=== PATIENT | female | born 1940 | race Caucasian/White ===

== ENCOUNTER 2019-03-30 12:41 | Day surgery (SDC) | payer MEDICARE, MEDICAID, SELFPAY ==
[2019-03-29 17:55] VITALS: BMI 45.7
--- NOTE | 2019-03-30 12:31 | PM.HPUD ---
H&P update H&P Update: DATE OF SURGERY/PROCEDURE: 03/30/19 DATE H&P PERFORMED: 03/29/19 H&P UPDATE INFORMATION: H&P completed within last 30 days and No changes to prior documentation PREOP DIAGNOSIS: Right gluteal abscess PLANNED PROCEDURE: Operation Date: 03/30/19 15:25 Proposed Procedures p Exam Under Anesthesia(Not Applicable) - Hiro Mistry MD s Incision And Drainage right gluteal abcess [id number] k61.1(Not Applicable) - Hiro Mistry MD Full H&P Perinent History: Medical/Surgical History: Medical History (Updated 03/29/19 @ 16:54 by Hiro Mistry MD) CHF (congestive heart failure) (Acute) COPD (chronic obstructive pulmonary disease) (Acute) H/O drainage of abscess (Acute) Dr. Yip in 12/2019 is 134 on Hypertension (Acute) Perirectal abscess (Acute) Rectovaginal fistula (Acute) Family History: Family History (Updated 03/29/19 @ 16:22 by Ping Styles LPN) Unknown Cancer siblings with colon cancer, lung cancer, and melanoma Other Diabetes Denies family history of Anesthesia complication Bleeding disorder Social History: Social History Smoking and tobacco status: never smoked Alcohol intake: never Household members: family Current occupational status: retired
[2019-03-30 13:22] VITALS: BP 105/73; PULSE 92; RESP 18; TEMP 37.3; O2SAT 97
[2019-03-30] MEDS: sodium chloride 0.9% 1,000 ML 30 ML IV (13:45)
--- NOTE | 2019-03-30 13:49 | ANES.PREANES ---
Pre-Anesthetic Assessment Pre-Anesthetic Assessment: Height/Weight: Height 1.57 m Weight 113.398 kg Temp Pulse Resp BP Pulse Ox 99.1 F 92 18 105/73 97 03/30/19 13:22 03/30/19 13:22 03/30/19 13:22 03/30/19 13:22 03/30/19 13:22 Proposed Procedure: Operation Date: 03/30/19 15:25 Proposed Procedures p Exam Under Anesthesia(Not Applicable) - Hiro Mistry MD s Incision And Drainage right gluteal abcess [id number] k61.1(Not Applicable) - Hiro Mistry MD Was Beta Amelia taken within 24 hours: N/A Last intake: Intake Last Liquid Date 03/29/19 Last Liquid Time 21:00 Last Solid Date 03/29/19 Last Solid Time 21:00 Exam: Pre-Anes Outpt Exam: alert, oriented x 3, clear to auscultation bilaterally and regular rate & rhythm Additional Exam Findings (including area of procedure): Diminished breath sounds Airway: Submandibular: WNL Cervical ROM: WNL MP: 4 Additional comments: edentulous Pulmonary: Pulmonary: COPD, Sleep apnea (CPAP/Trilogy) and SOB Comments: ON oxygen 4L NC, hx acute respiratory resp failure CV/HEM: CV/HEM: CHF : : None reported Hepatic: Hepatic: None reported GI: GI: None reported Metabolic: Metabolic: Morbid obesity and Thyroid Musc/skel: Musc/skel: Lower Back Pain Neuropsych: Neuropsych: CVA (years ago) Anesthetic Plan: ASA status: IV Anesthesia: General Risk of > 500 ml blood loss (7ml/kg in children): No Meds/Allergies Current Medications: Current Medications Generic Name Dose Route Start Last Admin Trade Name Freq PRN Reason Stop Dose Admin Sodium Chloride 1,000 mls @ 30 ml s/hr 03/30/19 12:45 03/30/19 13:45 Sodium Chloride 0.9% IV 03/31/19 12:44 30 mls/hr .Q24H MARIO Administration PFSH Anesthesia PFSH: Social History Smoking and tobacco status: never smoked Alcohol intake: never Household members: family Current occupational status: retired Data Anesthesia Cardiac Studies: No Data to Display
[2019-03-30] MEDS: clindamycin 600 MG/50 ML PREMIX 100 MG IV (14:12)
[2019-03-30] MEDS: metroNIDAZOLE IV 500 MG/100 ML PREMIX 100 MG IV (14:12)
[2019-03-30] MEDS: lidocaine 1% INJ 20 mL SUBCUT (14:30)
[2019-03-30 14:47] VITALS: BP 109/82; PULSE 87; RESP 18; TEMP 36.9; O2SAT 98
--- NOTE | 2019-03-30 15:09 | P.OP_ITS ---
Operative Report Post-Operative Note: Date of procedure: 03/30/19 Preop Diagnosis: Rectovaginal fistula, right perirectal abscess Post-op Findings: 4 x 4 centimeter right perirectal abscess Procedure Done: Incision and drainage of right perirectal abscess Pathology: none sent Surgeon: Hiro Mistry Anesthesia: MAC Estimated blood loss (mL): 10 Condition: stable Disposition: PACU Operative Report: Procedure: The patient was taken to the operating room and placed in the right lateral position under MAC after IV antibiotic had been administered. 1% lidocaine with 0.5% Marcaine was infiltrated around the abscess. Using 11 blade 3 cm incision was made starting at the existing opening of the abscess cavity. Loculations were taken down bluntly, wound was irrigated saline and 3/4 inch Gridley drain was sutured in place using 3-0 Prolene suture. Dressings were applied and the patient was transferred to recovery room in stable condition. Coding Level of Care Code Acute Cnc Machine Programmer for Hung Macias
--- NOTE | 2019-03-30 16:42 | PC.SOCIAL ---
SS was called to patient's room, she stated she needs more help at home. She lives at home with her son and daughter. She has in-home services with [facility] 7 days a week, nursing 1 day a week, and respite 5 days a week. She has a walker and is on 4L of O2 at home. Her O2 is provided by HOME. She see Dr. Parks and her family takes her to all appointments. She was order home health, her choice was [facility] who already provides her in-home services. [facility] faxed order to [facility].
--- NOTE | 2019-03-30 18:00 | ANE.PACU ---
 Inpatient post-anesthesia follow up: Airway intact: Yes Vital signs: Temperature 98.5 F Pulse Rate [Left R adial] 87 Respiratory Rate 18 Blood Pressure [Ri ght Arm] 109/82 Pulse Oximetry 98 Oxygen Delivery Me thod Nasal Cannula Oxygen Flow Rate 5 Fraction of Inspir ed Oxygen Hydration adequate: Yes Nausea and vomiting: No Mental status: Baseline
--- NOTE | 2019-03-31 12:09 | PC.SOCIAL ---
Received a call from Kasia with [facility] who states they received the HH order. I will fax additional information to Kasia. She states she will check staffing and contact the PCP to see if they will follow for HH. If everything is good, she will not contact us again, but if there are issues, she will let us know.
== END 2019-03-30 16:33 | disposition home or self-care (01) ==
PROVIDERS: Family Provider Electrodiagnostic Medicine; PCP Electrodiagnostic Medicine; Visit Provider Surgery
PROC: (CPT 46040; principal; 2019-03-30 14:20)
PROC: (CPT 46040; 2019-03-30 14:20)
DX: K61.1 Rectal abscess (principal); J44.9 Chronic obstructive pulmonary disease, unspecified; G47.30 Sleep apnea, unspecified; Z99.81 Dependence on supplemental oxygen; I11.0 Hypertensive heart disease with heart failure; I50.9 Heart failure, unspecified; E66.01 Morbid (severe) obesity due to excess calories; Z68.42 Body mass index [BMI] 45.0-49.9, adult; Z86.73 Personal history of transient ischemic attack (TIA), and cerebral infarction without residual deficits; Z83.3 Family history of diabetes mellitus
CPT/HCPCS: 46040; 96365; J2001; J3490; J7030; S0030

== ENCOUNTER 2019-05-10 14:39 | Emergency (ER) | payer MEDICARE, MEDICAID, SELFPAY ==
[2019-05-10 14:47] VITALS: BP 107/54; PULSE 78; RESP 18; O2SAT 98; BMI 44.8
--- NOTE | 2019-05-10 15:31 | ED_ITS ---
Entered by Chelly Boyd, acting as scribe for Sammy Suero DO HPI - Skin/Abscess/Foreign Bdy General: Chief complaint: Skin/Abscess/Foreign Body Stated complaint: BUTTOCK WOUND Time Seen by Provider: 05/10/19 15:23 Source: patient, EMS and RN notes reviewed Mode of arrival: EMS Limitations: no limitations History of Present Illness: HPI narrative: 78 yo female presents to ED with complaints of an abscess on or near rectum. Dr Mistry performed drained the area 6 weeks ago. MD complaint: abscess/boil Onset (ago): week(s) (2) Tetanus up to date: yes Location: buttocks Severity: severe Quality: aching, sharp and constant Pain Consistency: constant Relieving factors: rest (on side) Exacerbating factors: other (sitting) Context: none Associated symptoms: Reports no associated symptoms Treatments prior to arrival: other (surgically drained 6 weeks) Review of Systems General: Reports: 10 or more systems reviewed and unremarkable except in HPI and below PFSH ED PFSH: Medical History CHF (congestive heart failure) COPD (chronic obstructive pulmonary disease) H/O drainage of abscess Dr. Yip in 12/2019 is 134 on 03/30/2019: Dr. Mistry right perirectal Hypertension Perirectal abscess Rectovaginal fistula Surgical History H/O hysterectomy with oophorectomy H/O wrist surgery History of bladder surgery bladder lift Family History Unknown Cancer siblings with colon cancer, lung cancer, and melanoma Other Diabetes Denies family history of Anesthesia complication Bleeding disorder Social History Smoking and tobacco status: former smoker Alcohol intake: never Household members: family Current occupational status: retired Physical Exam Const: COMMON NORMALS: no apparent distress, average body habitus, oriented x3, no limitations, healthy appearing, alert and well nourished HENMT: COMMON NORMALS: normocephalic, head/scalp atraumatic, hearing grossly normal bilaterally, external ears normal, EAC's normal, TM's normal bilaterally, external nose normal, nasal mucous membranes and turbinates normal, moist oral mucous membranes, oropharynx normal, dentition normal and gingiva normal HEAD & SCALP: normocephalic and atraumatic NOSE: external nose normal and nasal mucous membranes and turbinates normal EXTERNAL EAR: Yes external ears normal EXTERNAL AUDITORY CANAL: EAC's normal TYMPANIC MEMBRANE: TM's normal bilaterally Eye: COMMON NORMALS: PERRL, EOMs intact bilaterally, conjunctivae normal, no scleral icterus, no papilledema, normal visual louie by confrontation and fundi normal bilaterally CONJUNCTIVA: Yes conjunctivae normal PUPIL: Yes PERRL DIRECT OPHTHALMOSCOPY: Yes no papilledema and Yes fundi normal bilaterally Neck/C-Spine: COMMON NORMALS: full ROM, no lymphadenopathy, supple, no meningeal signs, no JVD, thyroid normal and no carotid bruits THYROID: thyroid normal Chest: COMMONS NORMALS: inspection of chest normal and palpation of chest normal Resp: COMMON NORMALS: normal respiratory effort, no retractions, no use of accessory muscles, clear to auscultation bilaterally and percussion normal AUSCULTATION: clear to auscultation bilaterally PERCUSSION: percussion normal Cardio: COMMON NORMALS: no JVD, regular rate, regular rhythm, S1 normal heart sound, S2 normal heart sound, no gallops, no clicks, no murmurs, no rub and peripheral pulses 2+ throughout RATE: regular rate RHYTHM: regular rhythm HEART SOUNDS: S1 normal and S2 normal PERIPHERAL PULSES: pulses 2+ throughout GI: COMMON NORMALS: normal to inspection, nondistended, normoactive bowel sounds, soft to palpation, non-tender, no hepatosplenomegaly, no masses and no bruits PALPATION: Yes soft and Yes no hepatosplenomegaly : COMMON NORMALS: Yes no CVA tenderness and Yes external appearance normal BLADDER/KIDNEY EXAM: Yes no CVA tenderness Back/Pelvis: COMMON NORMALS: no CVA tenderness, thoracic and lumbar spine normal to inspection, no thoracic nor lumbar tenderness, thoraco-lumbar ROM normal and straight leg raise negative bilaterally Extremity: COMMON NORMALS: normal to inspection, full ROM, normal capillary refill, no joint enlargement, no clubbing, cyanosis or edema, no calf tenderness and no pedal edema Neuro: COMMON NORMALS: oriented x3 SENSORIUM/ORIENTATION: Yes alert MENINGEAL SIGNS: Yes no meningeal signs Skin: COMMON NORMALS: skin turgor normal, no jaundice, no petechiae and no mottling GENERAL SKIN EXAM: turgor normal Course Consultations: Consultation #1: I spoke with Dr Mistry who recommended packing, sitz baths, and follow up at the wound care clinic Vital Signs: Vital signs: Vital Signs Pulse Rate 78 05/10/19 14:47 Respiratory Rate 18 05/10/19 14:47 Blood Pressure 107/54 05/10/19 14:47 Pulse Oximetry 98 05/10/19 14:47 Discharge Plan Discharge Patient Disposition: Home, Self-Care Clinical Impression: Rectovaginal fistula Abscess of skin or subcutaneous tissue Qualifiers: Site of cutaneous abscess: buttock Qualified Code(s): L02.31 - Cutaneous abscess of buttock Condition: Stable Prescriptions: No Action triamcinolone acetonide 0.1 % cream 1 applic TOPICAL BID RF: 0 levothyroxine 175 mcg capsule 175 mcg PO DAILY RF: 0 albuterol sulfate [ProAir HFA] 90 mcg/actuation HFA aerosol inhaler 2 puff INHALATION Q6H PRN (Reason: Allergy Symptoms) RF: 0 ropinirole [Requip XL] 2 mg tablet extended release 24 hr 4 mg PO DAILY RF: 0 sertraline [Zoloft] 50 mg tablet 75 mg PO Q24H RF: 0 alprazolam 0.5 mg tablet 0.5 mg PO PRN PRN (Reason: Anxiety) RF: 0 potassium chloride 20 mEq tablet,ER particles/crystals 20 meq PO DAILY RF: 0 [place] 5-325 mg tablet 1 tab PO Q6H PRN (Reason: pain) Qty: 30 RF: 0 Discharge Orders: Discharge Order (Routine); Ordered 05/10/19 Ordered By: Sammy Suero Referrals: Jerardo Parks DO [Primary Care Provider] - Coding Level of Care Code ED Window Draper for Chg Fwd Exam Comprehensive The documentation recorded by the Oliver agee Valerie R, accurately reflects the service I personally performed and the decisions made by Pio villegas Donald P, DO May 10, 2019 14:39
[2019-05-10 16:16] VITALS: BP 109/57; PULSE 74; RESP 20; O2SAT 97
== END 2019-05-10 16:25 | disposition home or self-care (01) ==
PROVIDERS: Emergency Provider Family Medicine; Family Provider Electrodiagnostic Medicine; PCP Electrodiagnostic Medicine
DX: N82.3 Fistula of vagina to large intestine (principal); I11.0 Hypertensive heart disease with heart failure; I50.9 Heart failure, unspecified; J44.9 Chronic obstructive pulmonary disease, unspecified; Z87.891 Personal history of nicotine dependence
CPT/HCPCS: 99281

== ENCOUNTER 2019-07-15 12:37 | Inpatient (IN) | payer MEDICARE, MEDICAID, SELFPAY ==
[2019-07-15] VITALS (13 sets, daily range): BP systolic 118–169; BP diastolic 70–95; PULSE 79–91; RESP 15–22; TEMP 37–37.6; O2SAT 92–98; BMI 45.1
--- NOTE | 2019-07-15 13:33 | W.ED.GENADLT ---
HPI - General Adult General: Chief complaint: General Medical Stated complaint: multiple complaints Time Seen by Provider: 07/15/19 13:05 Source: patient Limitations: no limitations History of Present Illness: HPI narrative: 78-year-old female patient with a history of congestive heart failure, hypertension, COPD, who is on home BiPAP to be used as needed, she says that in the last 3 weeks she has had to use the BiPAP all the time which is not usual for her. She denies a fever, she complains of generalized weakness. She also has a rash that is itchy and sometimes painful under her skin folds especially of the breasts and groin and between her buttocks cheeks. Associated symptoms: Reports chest pain, dyspnea and rash; Deny nausea, palpitations or vomiting Review of Systems General: Reports: 10 or more systems reviewed and unremarkable except in HPI and below Const: Denies: fever, chills or body aches Eyes: Denies: change in vision or blurry vision ENMT: Denies: throat pain, enlarged tonsils, painful swallowing, hoarseness, mouth pain or swelling of lips/tongue Card: Reports: chest pain; Denies: palpitations, irregular heart rhythm, edema or swelling of feet/ankles Resp: Reports: shortness of breath GI: Denies: abdominal pain, nausea or vomiting : Denies: flank pain, difficulty urinating, painful urination, urinary frequency, urinary urgency or urinary hesitancy Musc: Denies: neck pain, back pain or extremity swelling Skin/Breast: Reports: rash and itching Neuro: Reports: other (generalized weakness) Endo: Denies: excessive urination, excessive thirst or tired all the time [facility] ED PFSH: Medical History (Updated 07/15/19 @ 18:06 by Lurdes Carty MD) Acute on chronic respiratory failure Anxiety and depression CHF (congestive heart failure) chronic diastolic CKD (chronic kidney disease) stage 2, GFR 60-89 ml/min COPD (chronic obstructive pulmonary disease) Trilogy dependent (Ellipta) H/O drainage of abscess Dr. Yip in 12/2019 is 134 on 03/30/2019: Dr. Mistry right perirectal Hypertension Hypothyroidism Morbid obesity Normocytic hypochromic anemia ALONZO (obstructive sleep apnea) Pemphigus vulgaris Perirectal abscess Rectovaginal fistula Restless leg syndrome Surgical History H/O hysterectomy with oophorectomy H/O wrist surgery ORIF History of bladder surgery bladder lift Family History (Updated 07/15/19 @ 17:29 by Lurdes Carty MD) Unknown Cancer siblings with colon cancer, lung cancer, and melanoma Father CAD (coronary artery disease) Mother Diabetes Denies family history of Anesthesia complication Bleeding disorder Social History (Updated 07/15/19 @ 17:30 by Lurdes Carty MD) Smoking and tobacco status: former smoker Quit status (tobacco): has quit using tobacco Year quit tobacco: 50 yrs ago Alcohol intake: never Substance/Drug Use: never Household members: family Current occupational status: retired History of recent travel: No Physical Exam Const: COMMON NORMALS: no apparent distress and average body habitus OTHER: On her home BiPAP machine Resp: COMMON NORMALS: normal respiratory effort, no retractions, no use of accessory muscles and clear to auscultation bilaterally AUSCULTATION: clear to auscultation bilaterally Cardio: COMMON NORMALS: regular rate, regular rhythm, S1 normal heart sound and S2 normal heart sound RATE: regular rate RHYTHM: regular rhythm HEART SOUNDS: S1 normal and S2 normal Extremity: COMMON NORMALS: normal to inspection, no calf tenderness and no pedal edema Skin: RASHES: rashes noted (Multiple maculopapular rashes with yellowish exudates, some blisters, and some plaques also located in the skin folds under both breasts and between both breasts, gluteal fold, inguinal regions. ) Course Consultations: Consultation #1: Dr. Carty, hospitalist. She kindly accepted the patient to her service. Time: 16:27 Vital Signs: Vital signs: Vital Signs Temperature 98.6 F 07/15/19 17:41 Pulse Rate 83 07/15/19 17:41 Respiratory Rate 16 07/15/19 17:41 Blood Pressure 120/70 07/15/19 17:41 Pulse Oximetry 98 07/15/19 17:41 MDM - General Adult MDM Narrative: Medical decision making narrative: 78-year-old female patient who presents to the emergency department with multiple complaints. Evaluation in the emergency department shows CHF exacerbation as well as intertrigo. She is admitted to the hospital for further management and evaluation. Lab Data: Labs: Lab Results 04/07/15/19 07/15/19 Range/Units 14:00 14:00 14:00 WBC 12.0 H (4.0-10.0) 10^3/ uL RBC 3.20 L (4.1-5.3) 10^6/u L Hgb 7.9 L (11.5-15.3) g/dL Hct 27.4 L (37.0-47.0) % MCV 85.6 (81-99) fL MCH 24.7 L (28.0-34.0) pg MCHC 28.8 L (30.0-36.0) g/dL RDW 17.9 H (12.1-15.1) % Plt Count 142 (130-400) 10^3/c mm MPV 11.1 H (7.4-10.4) fL Neut % (Auto) 45.7 % Lymph % (Auto) 16.8 % Hale % (Auto) 27.7 % Eos % (Auto) 2.3 % Baso % (Auto) 0.3 % Neut # (Auto) 5.5 (1.8-7.7) 10^3/u L Lymph # (Auto) 2.0 (0.8-4.8) 10^3/u L Hale # (Auto) 3.3 H (0.2-0.9) 10^3/u L Eos # (Auto) 0.3 (0.0-0.8) 10^3/u L Baso # (Auto) 0.0 (0.0-0.1) 10^3/u L Nucleated RBC % (a uto) 0.8 % Nucleated RBCs # 0.1 /100WBC Sodium 143 (136-145) mmol/L Potassium 3.8 (3.5-5.1) mmol/L Chloride 96 L (98-107) mmol/L Carbon Dioxide 35 H (22-29) mmol/L Anion Gap 15.8 (5-19) BUN 21 (8-23) mg/dL Creatinine 0.8 (0.5-0.9) mg/dL Glucose 117 H (65-115) mg/dL Calculated Osmolal ity 294 (285-295) mOsm/k g Lactate 0.8 (0.5-2.2) mmol/L Calcium 10.6 H (8.5-10.5) mg/dL Total Bilirubin 0.3 (0.15-1.2) mg/dL AST 26 (0-32) U/L ALT 16 (0-33) U/L Alkaline Phosphata se 120 H (35-105) IU/L Troponin T Baselin e (0-10) ng/mL Troponin T 120 Min ruchi (0-10) ng/mL Delta Troponin T (0-10) ABS# NT-Pro-B Natriuret Pep 2650 H (0-450) pg/mL Total Protein 7.5 (6.6-8.7) g/dL Albumin 3.2 L (3.5-5.2) g/dL Globulin 4.3 (1.3-4.6) g/dL 07/15/19 07/15/19 Range/Units 14:00 16:14 WBC (4.0-10.0) 10^3/ uL RBC (4.1-5.3) 10^6/u L Hgb (11.5-15.3) g/dL Hct (37.0-47.0) % MCV (81-99) fL MCH (28.0-34.0) pg MCHC (30.0-36.0) g/dL RDW (12.1-15.1) % Plt Count (130-400) 10^3/c mm MPV (7.4-10.4) fL Neut % (Auto) % Lymph % (Auto) % Hale % (Auto) % Eos % (Auto) % Baso % (Auto) % Neut # (Auto) (1.8-7.7) 10^3/u L Lymph # (Auto) (0.8-4.8) 10^3/u L Hale # (Auto) (0.2-0.9) 10^3/u L Eos # (Auto) (0.0-0.8) 10^3/u L Baso # (Auto) (0.0-0.1) 10^3/u L Nucleated RBC % (a uto) % Nucleated RBCs # /100WBC Sodium (136-145) mmol/L Potassium (3.5-5.1) mmol/L Chloride (98-107) mmol/L Carbon Dioxide (22-29) mmol/L Anion Gap (5-19) BUN (8-23) mg/dL Creatinine (0.5-0.9) mg/dL Glucose (65-115) mg/dL Calculated Osmolal ity (285-295) mOsm/k g Lactate (0.5-2.2) mmol/L Calcium (8.5-10.5) mg/dL Total Bilirubin (0.15-1.2) mg/dL AST (0-32) U/L ALT (0-33) U/L Alkaline Phosphata se (35-105) IU/L Troponin T Baselin e 28 H (0-10) ng/mL Troponin T 120 Min ruchi 28.84 H (0-10) ng/mL Delta Troponin T 0.84 (0-10) ABS# NT-Pro-B Natriuret Pep (0-450) pg/mL Total Protein (6.6-8.7) g/dL Albumin (3.5-5.2) g/dL Globulin (1.3-4.6) g/dL Imaging Data^: CXR: Radiologist's impression: [address] [address] XRay Report Signed Patient: Aurelia Cruz #: [id number] : 1940Acct#:[id number] Age/Sex: 78 / FADM Date: 07/15/19 Loc: [facility]/Bed: Attending Dr: Ordering Provider/Ordering MD: Dave Zimmerman MD, [facility] [place] Date of Service: 07/15/19 Procedure(s): XR chest 1V portable [id number] Accession Number(s): [id number] Report Number: [id number] WS: [id number] CHEST XRAY TECHNIQUE: Portable chest. CLINICAL INFORMATION: SOB COMPARISON: March 15, 2019 FINDINGS: Heart: Marked cardiomegaly with mildly vascular congestion Lungs: Mild pulmonary vascular congestion. No focal pneumonia. Trace pleural fluid. Chronic elevation hemidiaphragm unchanged. Shallow inspiration. Bones: Normal visualized bony structures. XR/XR chest 1V portable [id number] IMPRESSION: 1. Shallow inspiration. 2. Cardiomegaly with mild pulmonary vascular congestion and trace pleural fluid. Recommend correlation CHF. EKG Data^: EKG 1: Attestation: I personally reviewed and interpreted this EKG as follows: EKG interpretation date: 07/15/19 EKG interpretation time: 16:29 Prior EKG tracings: not available for review Interpretation: Normal sinus rhythm. Normal axis. Heart rate [address] changes. Computer generated interpretation: Chest X-Ray 07/15/19 14:15 IMPRESSION: 1. Shallow inspiration. 2. Cardiomegaly with mild pulmonary vascular congestion and trace pleural fluid. Recommend correlation CHF. Discharge Plan Discharge Patient Disposition: Admitted As Inpatient Admit Provider: Lurdes Carty Discharge Date/Time: 07/15/19 17:27 Coding Level of Care Code ED Pile Fabric Knitter for Chg Fwd Exam Detailed
[2019-07-15 14:10] LABS: Basophils % 0.3 %; Eosinophils # 0.3 10^3/uL (0.0-0.8); Eosinophils % 2.3 %; Hematocrit 27.4 % (37.0-47.0); Hemoglobin 7.9 g/dL (11.5-15.3); Lymphocytes % 16.8 %; Mean Corpuscular HGB Conc 28.8 g/dL (30.0-36.0); Mean Corpuscular Hemoglobin 24.7 pg (28.0-34.0); Mean Corpuscular Volume 85.6 fL (81-99); Mean Platelet Volume 11.1 fL (7.4-10.4); Monocytes # 3.3 10^3/uL (0.2-0.9); Monocytes % 27.7 %; Neutrophils # 5.5 10^3/uL (1.8-7.7); Neutrophils % 45.7 %; Nucleated Red Blood Cells # 0.1 /100WBC; Nucleated Red Blood Cells % 0.8 %; Platelet Count 142 10^3/cmm (130-400); Red Cell Distribution Width 17.9 % (12.1-15.1)
--- NOTE | 2019-07-15 14:15 | XR_ITS ---
WS: [id number] CHEST XRAY TECHNIQUE: Portable chest. CLINICAL INFORMATION: SOB COMPARISON: March 15, 2019 FINDINGS: Heart: Marked cardiomegaly with mildly vascular congestion Lungs: Mild pulmonary vascular congestion. No focal pneumonia. Trace pleural fluid. Chronic elevation hemidiaphragm unchanged. Shallow inspiration. Bones: Normal visualized bony structures. XR/XR chest 1V portable [id number] IMPRESSION: 1. Shallow inspiration. 2. Cardiomegaly with mild pulmonary vascular congestion and trace pleural flui d. Recommend correlation CHF.
[2019-07-15 14:29] LABS: Slide Review Slide Review Perform
[2019-07-15 14:31] LABS: Lactate (Lactic Acid level) 0.8 mmol/L (0.5-2.2)
[2019-07-15 14:40] LABS: Alanine Aminotransferase 16 U/L (0-33); Albumin Level 3.2 g/dL (3.5-5.2); Alkaline Phosphatase 120 IU/L (35-105); Anion Gap 15.8 (5-19); Aspartate Amino Transferase 26 U/L (0-32); Blood Urea Nitrogen 21 mg/dL (8-23); Calcium 10.6 mg/dL (8.5-10.5); Carbon Dioxide 35 mmol/L (22-29); Chloride 96 mmol/L (98-107); Globulin 4.3 g/dL (1.3-4.6); Glucose 117 mg/dL (65-115); NT Pro B Type Natriuretic Pept 2650 pg/mL (0-450); Osmolality Calculated 294 mOsm/kg (285-295); Potassium 3.8 mmol/L (3.5-5.1); Sodium 143 mmol/L (136-145); Total Bilirubin 0.3 mg/dL (0.15-1.2); Total Protein 7.5 g/dL (6.6-8.7)
--- NOTE | 2019-07-15 15:51 | ECG_ITS ---
Measurements Intervals [place] Rate: 80 P: 63 [place]: 160 QRS: 31 QRSD: 104 T: 39 QT: 351 QTc: 405 SINUS RHYTHM LOW QRS VOLTAGE IN PRECORDIAL LEADS [QRS DEFLECTION < 1.0 mV IN CHEST LEADS] Compared to ECG 03/15/2019 14:17:20 Low QRS voltage now present Electronically Signed On 07-16-2019 14:58:49 CDT by Benita Davis M.D. [email or web address]
[2019-07-15] MEDS: FUROsemide 10 mg/mL SDV 10mL 80 MG IVP (15:56)
[2019-07-15 16:11] LABS: Troponin(5th) Baseline 28 ng/mL (0-10)
[2019-07-15 16:39] LABS: Troponin 5 2HR 28.84 ng/mL (0-10); Troponin 5 2HR Delta 0.84 ABS# (0-10)
--- NOTE | 2019-07-15 17:09 | PM.HP ---
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 Patient is well-known to me from previous admission and has presented in the past with similar symptoms often due to acute CHF exacerbation. She was last admitted at our facility in 12/2018. Patient is currently on BiPAP during my assessment in the ER so history taking is a little limited. Collateral information obtained from ER staff, review of medical record, family. Patient states that she has been compliant with trilogy and despite using it has continued to be short of breath. She is not sure if she has had lower extremity swelling but states that her legs do not feel right. She is unable to tell if she has had additional swelling elsewhere including her abdominal area. She is quite concerned about possible perirectal abscess which she has dealt with in the past due to noted drainage and bleeding whenever she awakens in the morning. She did have a right perirectal abscess incised and drained in March by Dr. 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 Unfortunately patient also has a history of pemphigus and intermittently has worsening lesions with blistering, she follows up with a specialist at [facility] and daughter Rafaela whom I spoke to on the phone states that recently patient has had increased redness and blistering which have caused some distress for the patient. Patient's daughter is one of her primary caregivers and patient does have home health services through [facility] home health agency. It seems that she was unable to maintain her saturation using her trilogy likely due to ill fitting mask as the Velcro straps are worn out. She was subsequently switched to BiPAP which she is still on with saturation being maintained in the 98-100% range. She has already received an 80 mg dose of IV Lasix. Work-up includes noted leukocytosis with a white count of 12.0, anemia with a hemoglobin of 7.9, normal renal function, lactic acid of 0.8, BNP of 2650. Chest x-ray is reported as mild vascular pulmonary congestion and cardiomegaly. Patient is being admitted for further IV diuresis and BiPAP support. Review of Systems Const: Reports: change in appetite (decreased appetite) and fatigue; Denies: fever or chills Eyes: Denies: change in vision ENMT: Reports: dry mouth Card: Denies: chest pain, swelling of feet/ankles or lightheadedness Resp: Reports: productive cough (green sputum); Denies: shortness of breath GI: Denies: abdominal pain, nausea, vomiting, vomiting blood or blood in stool : Reports: urinary frequency; Denies: difficulty urinating or painful urination Musc: Denies: back pain Skin/Breast: Denies: rash Neuro: Reports: weakness in extremities; Denies: numbness in extremities Psych: Denies: anxiety Medications/Allergies Home Medications Medication Instructions Recorded Confirmed Last Taken Type albuterol sulfate 90 mcg/actuation 2 puff INHALATION Q6H PRN 03/29/19 07/15/19 03/29/19 18:00 History aerosol inhaler levothyroxine 175 mcg capsule 175 mcg PO DAILY 03/29/19 07/15/19 03/30/19 07:00 History sertraline 50 mg tablet 75 mg PO DAILY tab 03/29/19 07/15/19 03/30/19 07:00 History triamcinolone acetonide 0.1 % 1 applic TOPICAL BID PRN 03/29/19 07/15/19 2 Days Ago History topical cream ~03/28/19 alprazolam 0.5 mg PO TID PRN 03/30/19 07/15/19 03/30/19 07:00 History potassium chloride 20 meq PO BID 03/30/19 07/15/19 03/30/19 07:00 History lactulose 10 gram/15 mL (15 mL) 10 gm PO BID 30 Days #1440 ml 05/17/19 07/15/19 Unknown Rx oral solution [place] 1 tab PO BID 07/15/19 07/15/19 Unknown History acitretin 25 mg PO DAILY 07/15/19 07/15/19 Unknown History bumetanide See Rx Instructions .ROUTE .COMPLEX 07/15/19 07/15/19 Unknown History cyanocobalamin (vitamin B-12) See Rx Instructions .ROUTE .COMPLEX 07/15/19 07/15/19 Unknown History fluticasone propionate [Flonase 1 spray INTRANASAL DAILY 07/15/19 07/15/19 Unknown History Allergy Relief] hydrocodone-acetaminophen [[place]] 1 tab PO Q8H PRN 07/15/19 07/15/19 Unknown History iron 325 mg PO BID 07/15/19 07/15/19 Unknown History methenamine hippurate 1 g PO BID 07/15/19 07/15/19 Unknown History ropinirole 2 - 4 mg PO BEDTIME 07/15/19 07/15/19 Unknown History Allergies Allergy/AdvReac Type Severity Reaction Status Date / Time levofloxacin [From Levaquin] Allergy Severe ALGY-Swell Verified 05/17/19 15:07 Lip/Tongue/Throat Penicillins Allergy Severe ALGY-Swell Verified 05/17/19 15:07 Lip/Tongue/Throat Sulfa (Sulfonamide Allergy Severe ALGY-Swell Verified 05/17/19 15:07 Antibiotics) Lip/Tongue/Throat PFSH Acute PFSH: Medical History (Updated 07/15/19 @ 18:06 by Lurdes Carty MD) Acute on chronic respiratory failure Anxiety and depression CHF (congestive heart failure) chronic diastolic CKD (chronic kidney disease) stage 2, GFR 60-89 ml/min COPD (chronic obstructive pulmonary disease) Trilogy dependent (Ellipta) H/O drainage of abscess Dr. Yip in 12/2019 is 134 on 03/30/2019: Dr. Mistry right perirectal Hypertension Hypothyroidism Morbid obesity Normocytic hypochromic anemia ALONZO (obstructive sleep apnea) Pemphigus vulgaris Perirectal abscess Rectovaginal fistula Restless leg syndrome Surgical History H/O hysterectomy with oophorectomy H/O wrist surgery ORIF History of bladder surgery bladder lift Family History (Updated 07/15/19 @ 17:29 by Lurdes Carty MD) Unknown Cancer siblings with colon cancer, lung cancer, and melanoma Father CAD (coronary artery disease) Mother Diabetes Denies family history of Anesthesia complication Bleeding disorder Social History (Updated 07/15/19 @ 18:16 by Lurdes Carty MD) Smoking and tobacco status: former smoker Quit status (tobacco): has quit using tobacco Year quit tobacco: 50 yrs ago Alcohol intake: never Substance/Drug Use: never Caregiver/support person: Yes (daughter Rafaela) Household members: children Current occupational status: retired History of recent travel: No Vitals/I&O/Wt Last Vital Signs Temp 99.7 F H 07/15/19 13:01 Pulse 79 07/15/19 16:30 Resp 20 H 07/15/19 16:02 BP 136/95 07/15/19 16:02 Pulse Ox 96 07/15/19 16:30 Weight last 48 hrs Weight 112.037 kg Physical Exam Const: COMMON NORMALS: no apparent distress and oriented x3 GENERAL APPEARANCE: cooperative NUTRITIONAL APPEARANCE: obese morbidly obese ORIENTATION/CONSCIOUSNESS: Yes awake HENMT: COMMON NORMALS: normocephalic, head/scalp atraumatic and hearing grossly normal bilaterally HEAD & SCALP: normocephalic and atraumatic MOUTH: moist mucous membranes abnormal Details: parched Eye: COMMON NORMALS: PERRL, EOMs intact bilaterally and conjunctivae normal CONJUNCTIVA: Yes conjunctivae normal PUPIL: Yes PERRL Neck/C-Spine: GENERAL: Yes normal visual inspection and Yes trachea midline OTHER: -short, thick neck Chest: CHEST: Yes rash (skin lesions and crusted erosions on anterior chest, erythematous) Resp: COMMON NORMALS: normal respiratory effort, no retractions and no use of accessory muscles EFFORT & INSPECTION: Yes able to speak in complete sentences, Yes symmetric chest movement and No tachypneic AUSCULTATION: clear to auscultation bilaterally and diminished lung sounds OTHER: -on BiPAP (40%/20/10) -auscultation limited by body habitus Cardio: COMMON NORMALS: regular rate, regular rhythm, S1 normal heart sound, S2 normal heart sound and no murmurs RATE: regular rate RHYTHM: regular rhythm HEART SOUNDS: S1 normal and S2 normal GI: COMMON NORMALS: normal to inspection, nondistended, normoactive bowel sounds, soft to palpation and non-tender INSPECTION: Yes central obesity PALPATION: Yes soft RECTAL EXAM: external hemorrhoid(s) Extremity: COMMON NORMALS: normal to inspection, full ROM and no clubbing, cyanosis or edema GENERAL: Yes edema (1-2 + pitting edema of bilateral LEs) Neuro: COMMON NORMALS: oriented x3, moves all extremities, no focal motor deficits and no sensory deficits noted Psych: COMMON NORMALS: mental status grossly normal, thought process normal, cooperative, affect normal and speech normal SPEECH: Yes normal speech THOUGHT PROCESS: normal thought process Skin: COMMON NORMALS: no jaundice, no petechiae and no mottling NARRATIVE SKIN EXAM: -Extensive blistering and crusted lesions on anterior chest, less extensive erythematous lesions in gluteal cleft and pubic area. GENERAL SKIN EXAM: no rashes or lesions noted Data : 07/15/19 14:00 07/15/19 14:00 A&P Assessment and plan (1) CHF (congestive heart failure): -acute on chronic diastolic CHF exacerbation as evidenced by increased SOB, LE edema, hypoxia even while using Trilogy, BNP elevation (2650) and evidence of fluid overload on imaging -on BiPAP currently, continue this -received 80 mg dose of IV Lasix in ED, is on Bumex at home, will continue diuresis with IV bumex -monitor Is & Os, daily weights -Echo (09/2018): limited study, EF=75%, no RWMA, PSP-36 -monitor renal function and lytes with diuresis -cardiac diet as tolerated -telemetry monitoring -monitor respiratory status -monitor vital signs Status: Acute Qualifiers: Heart failure type: diastolic Heart failure chronicity: acute on chronic Qualified Code(s): I50.33 - Acute on chronic diastolic (congestive) heart failure (2) Acute on chronic respiratory failure: -chronically hypercapnic -hypoxic on her Trilogy, switched to BiPAP -close monitoring of respiratory status -check ABG -likely secondary to acute CHF exacerbation as noted above Status: Acute Qualifiers: Respiratory failure complication: hypoxia and hypercapnia Qualified Code(s): J96.21 - Acute and chronic respiratory failure with hypoxia; J96.22 - Acute and chronic respiratory failure with hypercapnia (3) Normocytic hypochromic anemia: -noted acutely worsening chronic normocytic anemia -baseline Hg is 8-9, current Hg 7.9 Status: Acute (4) Pemphigus vulgaris: -f/u at [facility] (Dr. Chakraborty) Status: Chronic (5) ALONZO (obstructive sleep apnea): -on BiPAP Status: Chronic (6) Candidal intertrigo: -superimposed on pemphigus lesions, particularly worse in inguinal areas and below bilateral breasts -nystatin powder and diflucan due to extent of skin involvement Status: Acute (7) CKD (chronic kidney disease) stage 2, GFR 60-89 ml/min: -has CKD stage 2, baseline Cr wnl -monitor renal function particularly with diuresis Status: Chronic (8) Hypothyroidism: -has hx of hypothyroidism -resume levothyroxine Status: Chronic Qualifiers: Hypothyroidism type: unspecified Qualified Code(s): E03.9 - Hypothyroidism, unspecified (9) Rectovaginal fistula: -has hx of rectovaginal fistula, inoperable per surgery -f/u with Dr. Mistry -has had issues with perirectal abscesses that have required drainage, most recently one on the R drained in 03/2019 -on exam, seems to have sinus tracts; no fluctuance appreciated -keep area clean and dry, resume bowel regimen Status: Chronic (10) Anxiety and depression: -on alprazolam Status: Chronic (11) Restless leg syndrome: -on ropinrole Status: Chronic (12) Morbid obesity: -BMI-45 kg/m2 Status: Chronic Additional A&P Information -OA, DJD, Chronic back pain -fall precautions -up with assist -DVT ppx with SCDs, hold off on AC due to noted anemia and associated bleeding risk -Dispo: return home, has HH services through [facility] -Code status: FULL code -called and spoke to daughter Rafaela Cruz ([phone]) and explained care plan; gave opportunity to ask questions and answered to her satisfaction Attestations Medical Necessity Statement*: Aurelia Cruz's hospital stay will require greater than 2 midnights for management of acute CHF exacerbation including BiPAP, IV diuresis. Time Spent in Patient Care: Greater than 35 minutes (>than 50% of time spent in counselling and/or direct pt care on unit). Coding Level of Care Code Acute Med Care Manager for Chg Fwd Diagnoses CHF (congestive heart failure) I50.33 Heart failure type: diastolic Heart failure chronicity: acute on chronic Acute on chronic respiratory failure J96.21; J96.22 Respiratory failure complication: hypoxia and hypercapnia Normocytic hypochromic anemia D50.9 Pemphigus vulgaris L10.0 ALONZO (obstructive sleep apnea) G47.33 Candidal intertrigo B37.2 CKD (chronic kidney disease) stage 2, GFR 60-89 ml/min N18.2 Hypothyroidism E03.9 Hypothyroidism type: unspecified Rectovaginal fistula N82.3 Anxiety and depression F41.9; F32.9 Restless leg syndrome G25.81 Morbid obesity E66.01
--- NOTE | 2019-07-15 17:51 | ECG_ITS ---
Measurements Intervals [place] Rate: 84 P: 99 MI: 164 QRS: 33 QRSD: 93 T: 36 QT: 353 QTc: 418 SINUS RHYTHM LOW QRS VOLTAGE IN PRECORDIAL LEADS [QRS DEFLECTION < 1.0 mV IN CHEST LEADS] Compared to ECG 03/15/2019 14:17:20 Low QRS voltage now present Electronically Signed On 07-16-2019 15:02:16 CDT by Benita Davis M.D. [id number]
[2019-07-15 17:56] LABS: ABG PCO2 55.8 mmHg (35-45); ABG PH Result 7.44 (7.35-7.45); Arterial Blood Gas Hematocrit 26.6 % (37-47); Base Excess ABG 12.5 mmol/L (-2.0-2.0); Blood Gas Allen Test Pos; Blood Gas Operator Identificat amh; Blood Gas Sample Site Radial, left; Blood Gas Sample Type Arterial; HCO3 ABG 38.1 mmol/L (22-26); Oxygen Device BIPAP
[2019-07-15] MEDS: ferrous sulfate EC 325 mg Tablet PO (19:27)
[2019-07-15] MEDS: bumetanide 0.25 mg/mL SDV 10 mL 1 MG IV (19:28)
[2019-07-15] MEDS: lactulose oral liq 20 gm/30 mL UDC 10 GM PO (19:28)
[2019-07-15] MEDS: ropinirole 2 mg Tablet PO (19:38)
[2019-07-15 20:39] LABS: Troponin 5 6HR 29.84 ng/mL (0-10); Troponin 5 6HR Delta 1.84 ng/L (0-12)
--- NOTE | 2019-07-15 21:51 | ECG_ITS ---
Measurements Intervals [place] Rate: 81 P: 99 DC: 164 QRS: 40 QRSD: 102 T: 41 QT: 361 QTc: 420 SINUS RHYTHM Compared to ECG 03/15/2019 14:17:20 No significant changes Electronically Signed On 07-16-2019 15:02:25 CDT by Benita Davis M.D. [email or web address]
[2019-07-15] MEDS: nystatin powder 15 gm Btl 1 APPLIC TOPICAL (22:00)
[2019-07-16] VITALS (13 sets, daily range): BP systolic 96–129; BP diastolic 60–78; PULSE 78–92; RESP 15–24; TEMP 36.4–37.2; O2SAT 92–98; BMI 45.7
[2019-07-16 05:31] LABS: Eosinophils # 0.3 10^3/uL (0.0-0.8); Hematocrit 28.5 % (37.0-47.0); Hemoglobin 8.4 g/dL (11.5-15.3); Mean Corpuscular HGB Conc 29.5 g/dL (30.0-36.0); Mean Corpuscular Hemoglobin 25.4 pg (28.0-34.0); Mean Corpuscular Volume 86.1 fL (81-99); Mean Platelet Volume 10.9 fL (7.4-10.4); Nucleated Red Blood Cells # 0.1 /100WBC; Nucleated Red Blood Cells % 0.7 %; Platelet Count 142 10^3/cmm (130-400); Red Blood Count 3.31 10^6/uL (4.1-5.3); Red Cell Distribution Width 17.9 % (12.1-15.1); White Blood Count 11.4 10^3/uL (4.0-10.0)
[2019-07-16] MEDS: bumetanide 0.25 mg/mL SDV 10 mL 1 MG IV ×2 (05:54→18:10)
[2019-07-16 05:56] LABS: Anion Gap 15.7 (5-19); Blood Urea Nitrogen 21 mg/dL (8-23); Calcium 10.7 mg/dL (8.5-10.5); Carbon Dioxide 37 mmol/L (22-29); Chloride 95 mmol/L (98-107); Glucose 110 mg/dL (65-115); Magnesium 2.2 mg/dL (1.7-2.3); Osmolality Calculated 295 mOsm/kg (285-295); Potassium 3.7 mmol/L (3.5-5.1); Sodium 144 mmol/L (136-145)
[2019-07-16 06:39] LABS: Slide Review Slide Review Perform
[2019-07-16 06:49] LABS: Absolute Eosinophils 0.5 10^3/cmm (0.0-0.7); Absolute Segmented Neutrophil 4.7 10/cmm (1.6-7.1); Band Neutrophils Absolute 0.7 10^3/cmm (0.0-1.2); Eosinophils 5 %; Lymphocytes 30 %; Lymphocytes Absolute 4.1 10^3/cmm (1.2-3.4); Monocytes Absolute 0.5 10^3/cmm (0.1-0.6); Segmented Neutrophils 42 %; Total Cells Counted 100 (0-100)
[2019-07-16 06:54] LABS: Blastocytes 1 % (0-0)
[2019-07-16 06:55] LABS: Anisocytosis 1+; Macrocytosis Trace; Smudge Cells 1+
[2019-07-16 06:56] LABS: Giant Platelets Trace; Platelet Estimate Normal (Normal)
[2019-07-16] MEDS: fluconazole 100 mg Tablet PO (08:45)
[2019-07-16] MEDS: levothyroxine 25 mcg Tablet PO (08:45)
[2019-07-16] MEDS: levothyroxine 150 mcg Tablet PO (08:45)
[2019-07-16] MEDS: ferrous sulfate EC 325 mg Tablet PO ×2 (08:45→17:17)
[2019-07-16] MEDS: lactulose oral liq 20 gm/30 mL UDC 10 GM PO ×2 (08:46→17:17)
[2019-07-16] MEDS: fluticasone nasal spray 16gm Btl 1 SPRAY INTRANASAL (08:46)
[2019-07-16] MEDS: nystatin powder 15 gm Btl 1 APPLIC TOPICAL ×2 (08:47→17:18)
[2019-07-16] MEDS: sertraline 50 mg Tablet 75 MG PO (08:52)
--- NOTE | 2019-07-16 11:55 | PM.PN ---
Subjective Subjective: Interval history: Patient seen and examined, remains on BiPAP support, had 525 mL urine output overnight. Morning labs noted including improved leukocytosis, improved hemoglobin to 8.4, stable renal function. She reports itching in her back and is requesting that we call her daughter to have her bring her anti-itch cream. Daughter did drop off patient's new mask so we will transition her to her home trilogy. Medications: Reviewed: Yes Medication Review Details: Active Medications Generic Name Dose Route Start Last Admin Trade Name Freq PRN Reason Stop Dose Admin Acetaminophen 650 mg 07/15/19 18:32 Tylenol PO Q6H PRN Mild/Mod Pain Or Temp >/= 101 Hydrocodone Bitart /Acetaminophen 1 tab 07/15/19 18:32 [place] 5-325 Mg PO Q8H PRN pain Alprazolam 0.5 mg 07/15/19 18:32 Xanax PO TID PRN Anxiety Bumetanide 1 mg 07/15/19 18:32 07/16/19 05:54 Bumex IV 1 mg Q12H MARIO Administration Ferrous Sulfate 325 mg 07/15/19 19:00 07/16/19 08:45 Ferrous Sulfate PO 325 mg BIDWM MARIO Administration Fluconazole 100 mg 07/16/19 09:00 07/16/19 08:45 Diflucan Tab PO 100 mg DAILY MARIO Administration Fluticasone Propio yogesh 1 spray 07/16/19 09:00 07/16/19 08:46 Flonase INTRANASAL 1 dose DAILY MARIO Administration Lactulose 10 gm 07/15/19 19:00 07/16/19 08:46 Constulose PO 10 gm BID MARIO Administration Levothyroxine Sodi um 150 mcg 07/16/19 09:00 07/16/19 08:45 Synthroid PO 150 mcg DAILY MARIO Administration Levothyroxine Sodi um 25 mcg 07/16/19 09:00 07/16/19 08:45 Synthroid PO 25 mcg DAILY MARIO Administration Morphine Sulfate 2 mg 07/15/19 18:32 Morphine IVP Q4H PRN SEVERE PAIN Non-Formulary Medi cation 1 gm 07/15/19 18:32 07/16/19 08:34 Methenamine Sarah urate PO Not Given BID MARIO Nystatin 1 applic 07/15/19 19:00 07/16/19 08:47 Nystatin Powder TOPICAL 1 dose BID MARIO Administration Ondansetron HCl 4 mg 07/15/19 18:32 Zofran IVP Q6H PRN vomiting, or N/V if npo Potassium Chloride 20 meq 07/15/19 19:00 07/16/19 08:52 Klor-Con 10 PO 20 meq BID MARIO Administration Ropinirole HCl 2 mg 07/15/19 21:00 07/15/19 19:38 Requip PO 2 mg BEDTIME MARIO Administration Sertraline HCl 75 mg 07/16/19 09:00 07/16/19 08:52 Zoloft PO 75 mg DAILY MARIO Administration levofloxacin [From Levaquin] Allergy (Severe, Verified 05/17/19 15:07) ALGY-Swell Lip/Tongue/Throat Penicillins Allergy (Severe, Verified 05/17/19 15:07) ALGY-Swell Lip/Tongue/Throat Sulfa (Sulfonamide Antibiotics) Allergy (Severe, Verified 05/17/19 15:07) ALGY-Swell Lip/Tongue/Throat Vitals/I&O/Wt Last Vital Signs Temp 98.1 F 07/16/19 11:34 Pulse 91 07/16/19 11:34 Resp 18 07/16/19 11:34 BP 129/64 07/16/19 11:34 Pulse Ox 94 07/16/19 11:34 07/15/19 07/16/19 07/16/19 22:59 06:59 14:59 Intake Total 240 / 240 480 / 480 Output Total 325 / 325 200 / 525 500 / 500 Balance -85 / -85 -200 / -285 -20 / -20 Weight last 48 hrs Weight 113.353 kg Weight 112.037 kg Physical Exam Const: COMMON NORMALS: no apparent distress and oriented x3 GENERAL APPEARANCE: cooperative NUTRITIONAL APPEARANCE: obese morbidly obese ORIENTATION/CONSCIOUSNESS: Yes awake HENMT: COMMON NORMALS: normocephalic, head/scalp atraumatic and hearing grossly normal bilaterally HEAD & SCALP: normocephalic and atraumatic MOUTH: moist mucous membranes abnormal Details: parched Eye: COMMON NORMALS: PERRL, EOMs intact bilaterally and conjunctivae normal CONJUNCTIVA: Yes conjunctivae normal PUPIL: Yes PERRL Neck/C-Spine: GENERAL: Yes normal visual inspection and Yes trachea midline OTHER: -short, thick neck Chest: CHEST: Yes rash (skin lesions and crusted erosions on anterior chest, erythematous) Resp: COMMON NORMALS: normal respiratory effort, no retractions and no use of accessory muscles EFFORT & INSPECTION: Yes able to speak in complete sentences, Yes symmetric chest movement and No tachypneic AUSCULTATION: diminished lung sounds OTHER: -on BiPAP (40%//) -auscultation limited by body habitus Cardio: COMMON NORMALS: regular rate, regular rhythm, S1 normal heart sound, S2 normal heart sound and no murmurs RATE: regular rate RHYTHM: regular rhythm HEART SOUNDS: S1 normal and S2 normal GI: COMMON NORMALS: normal to inspection, nondistended, normoactive bowel sounds, soft to palpation and non-tender INSPECTION: Yes central obesity PALPATION: Yes soft RECTAL EXAM: external hemorrhoid(s) Extremity: COMMON NORMALS: normal to inspection, full ROM and no clubbing, cyanosis or edema GENERAL: Yes edema (1-2 + pitting edema of bilateral LEs) Neuro: COMMON NORMALS: oriented x3, moves all extremities, no focal motor deficits and no sensory deficits noted Psych: COMMON NORMALS: mental status grossly normal, thought process normal, cooperative, affect normal and speech normal SPEECH: Yes normal speech THOUGHT PROCESS: normal thought process Skin: COMMON NORMALS: no jaundice, no petechiae and no mottling NARRATIVE SKIN EXAM: -Extensive blistering and crusted lesions on anterior chest, less extensive erythematous lesions in gluteal cleft and pubic area. Data : 07/16/19 05:20 07/16/19 05:20 A&P Assessment and plan (1) CHF (congestive heart failure): -acute on chronic diastolic CHF exacerbation as evidenced by increased SOB, LE edema, hypoxia even while using Trilogy, BNP elevation (2650) and evidence of fluid overload on imaging -on BiPAP currently, continue this -received 80 mg dose of IV Lasix in ED, is on Bumex at home, will continue diuresis with IV bumex -continue to monitor Is & Os, daily weights -Echo (09/2018): limited study, EF=75%, no RWMA, PSP-36 -continue to monitor renal function and lytes with diuresis -cardiac diet as tolerated -telemetry monitoring -continue to monitor respiratory status -continue to monitor vital signs Status: Acute Qualifiers: Heart failure type: diastolic Heart failure chronicity: acute on chronic Qualified Code(s): I50.33 - Acute on chronic diastolic (congestive) heart failure (2) Acute on chronic respiratory failure: -chronically hypercapnic -hypoxic on her Trilogy, switched to BiPAP -close monitoring of respiratory status -ABG noted (7.44/55.8/) -likely secondary to acute CHF exacerbation as noted above Status: Acute Qualifiers: Respiratory failure complication: hypoxia and hypercapnia Qualified Code(s): J96.21 - Acute and chronic respiratory failure with hypoxia; J96.22 - Acute and chronic respiratory failure with hypercapnia (3) Normocytic hypochromic anemia: -noted acutely worsening chronic normocytic anemia -baseline Hg is 8-9, current Hg 8.4 -will check iron stores -continue to monitor H/H Status: Acute (4) Pemphigus vulgaris: -f/u at [facility] (Dr. Chakraborty) Status: Chronic (5) ALONZO (obstructive sleep apnea): -on BiPAP Status: Chronic (6) Candidal intertrigo: -superimposed on pemphigus lesions, particularly worse in inguinal areas and below bilateral breasts -nystatin powder and diflucan due to extent of skin involvement Status: Acute (7) CKD (chronic kidney disease) stage 2, GFR 60-89 ml/min: -has CKD stage 2, baseline Cr wnl -continue to monitor renal function particularly with diuresis Status: Chronic (8) Hypothyroidism: -has hx of hypothyroidism -resume levothyroxine Status: Chronic Qualifiers: Hypothyroidism type: unspecified Qualified Code(s): E03.9 - Hypothyroidism, unspecified (9) Rectovaginal fistula: -has hx of rectovaginal fistula, inoperable per surgery -f/u with Dr. Mistry -has had issues with perirectal abscesses that have required drainage, most recently one on the R drained in 03/2019 -on exam, seems to have sinus tracts; no fluctuance appreciated -keep area clean and dry, resume bowel regimen Status: Chronic (10) Anxiety and depression: -on alprazolam Status: Chronic (11) Restless leg syndrome: -on ropinrole Status: Chronic (12) Morbid obesity: -BMI-46 kg/m2 Status: Chronic Additional A&P Information -OA, DJD, Chronic back pain -fall precautions -up with assist -DVT ppx with SCDs, hold off on AC due to noted anemia and associated bleeding risk -Dispo: return home, has HH services through [facility] -Code status: FULL code -called and spoke to daughter Rafaela Cruz ([phone]) and explained care plan; gave opportunity to ask questions and answered to her satisfaction Attestations Medical Necessity Statement*: Patient requires hospitalization for continued IV diuresis, monitoring of respiratory status due to acute diastolic CHF exacerbation. Time Spent in Patient Care: 16 - 35 minutes (>than 50% of time spent in counselling and/or direct pt care on unit). Coding Level of Care Code Acute Detector Car Operator for Chg Fwd Diagnoses CHF (congestive heart failure) I50.33 Heart failure type: diastolic Heart failure chronicity: acute on chronic Acute on chronic respiratory failure J96.21; J96.22 Respiratory failure complication: hypoxia and hypercapnia Normocytic hypochromic anemia D50.9 Pemphigus vulgaris L10.0 ALONZO (obstructive sleep apnea) G47.33 Candidal intertrigo B37.2 CKD (chronic kidney disease) stage 2, GFR 60-89 ml/min N18.2 Hypothyroidism E03.9 Hypothyroidism type: unspecified Rectovaginal fistula N82.3 Anxiety and depression F41.9; F32.9 Restless leg syndrome G25.81 Morbid obesity E66.01
--- NOTE | 2019-07-16 13:13 | PC.CHAP ---
Pastoral Care Encounter/Spiritual Assessment Type of Contact [] Declined police inspector visit [] Patient/Family/Request visit [] Outpatient visit [] Follow-up visit [] Physician referral [] Code/Alert [X] Routine visit [] Staff referral [] Actively dying [] Patient sleeping [] Family support [] [] Out of room [] Palliative care [] [] Receiving care in room [] Pre-surgical visit [] Trauma [] Long length of stay [] ICU visit [] Other: Relational/Emotional Strength [] Patient feels connected with others/family/visitors/staff [] Distress [] Loneliness/isolation [] Abandonment Spirituality of Patient [] Person of [place] [] Attends Sabianist of their [place] [] Believes in Prayer [] Reads Bible or Worship materials [] There are Spiritual issues to be addressed Warranty Clerk Interventions [] Prayer [] Active listening [] Non-anxious presence [] Spiritual/emotional support [] Crisis/trauma care [] Spiritual counseling [] Bereavement support [] Provided bereavement packet [] Provided Bible/devotional materials [] Provided toy/stuffed animal, coloring book to patient or family member [] Provided Communion [] Anointing/[place] [] Salvation [] Completed spiritual assessment [] Other: Impact on Illness or Injury [] Angry [] Fearful [] Anxious [] Often cries [] Exhaustion [] Unable to work [] Unable to attend advent [] Unable to walk/stand [] Unable to read [] Unable to drive [] Unable to eat/drink [] Unable to sleep [] Unable to be with family [] Patient intubated [] Other: Summary Time spent with patient
--- NOTE | 2019-07-16 15:11 | PC.NURSE ---
ANXIETY/Panic Patient states she is having a panic attack. I evaluated patient and she states she cant breath. Her o2 sats are 96% on 4l NC. patient is restless and keeps grabbing for trilogy mask while o2 is in nose stating she cant breath. I notified to see if she would prescribe anti anxiety meds. She declined at this time. Patient states she takes xanax 0.5mg TID PRN at home. She state she takes then when she gets like this and it helps. MELAW, STITCHING DEPARTMENT SUPERVISOR
[2019-07-16] MEDS: ropinirole 2 mg Tablet PO (18:12)
--- NOTE | 2019-07-16 19:06 | PC.NURSE ---
Dr. Carty told this nurse to give 2100 dose of requip with 0630 dose of Bumex,
[2019-07-16] MEDS: ALPRAZolam 0.5 mg Tablet PO (22:29)
[2019-07-16] MEDS: acetaminophen 325 mg Tablet 650 MG PO (23:28)
[2019-07-17] VITALS (7 sets, daily range): BP systolic 96–138; BP diastolic 61–78; PULSE 71–96; RESP 18–20; TEMP 36–36.9; O2SAT 92–99
[2019-07-17 05:26] LABS: Basophils % 0.1 %; Eosinophils # 0.3 10^3/uL (0.0-0.8); Eosinophils % 2.1 %; Hematocrit 28.2 % (37.0-47.0); Hemoglobin 8.2 g/dL (11.5-15.3); Lymphocytes # 2.2 10^3/uL (0.8-4.8); Lymphocytes % 15.8 %; Mean Corpuscular HGB Conc 29.1 g/dL (30.0-36.0); Mean Corpuscular Hemoglobin 25.2 pg (28.0-34.0); Mean Corpuscular Volume 86.8 fL (81-99); Mean Platelet Volume 11.3 fL (7.4-10.4); Monocytes # 4.6 10^3/uL (0.2-0.9); Monocytes % 33.3 %; Neutrophils # 5.4 10^3/uL (1.8-7.7); Neutrophils % 39.2 %; Nucleated Red Blood Cells # 0.1 /100WBC; Nucleated Red Blood Cells % 0.8 %; Platelet Count 140 10^3/cmm (130-400); Positive C 1; Positive M 1; Red Blood Count 3.25 10^6/uL (4.1-5.3); Red Cell Distribution Width 17.8 % (12.1-15.1); White Blood Count 13.7 10^3/uL (4.0-10.0)
[2019-07-17 05:45] LABS: Anion Gap 15.5 (5-19); Blood Urea Nitrogen 23 mg/dL (8-23); Calcium 11.9 mg/dL (8.5-10.5); Carbon Dioxide 35 mmol/L (22-29); Chloride 94 mmol/L (98-107); Glucose 143 mg/dL (65-115); Osmolality Calculated 291 mOsm/kg (285-295); Potassium 3.5 mmol/L (3.5-5.1); Sodium 141 mmol/L (136-145)
[2019-07-17 06:11] LABS: Slide Review Slide Review Perform
[2019-07-17] MEDS: bumetanide 0.25 mg/mL SDV 10 mL 1 MG IV ×2 (06:26→17:00)
[2019-07-17 06:42] LABS: Iron 49 ug/dL (37-145); Percent Saturation 22.5 % (20-50); Total Iron Binding Capacity 217 mcg/dl; Unsaturated Iron Binding 168 ug/dL (112-347)
[2019-07-17] MEDS: levothyroxine 150 mcg Tablet PO (09:00)
[2019-07-17] MEDS: ALPRAZolam 0.5 mg Tablet PO ×2 (09:00→17:00)
[2019-07-17] MEDS: levothyroxine 25 mcg Tablet PO (09:00)
[2019-07-17] MEDS: fluconazole 100 mg Tablet PO (09:00)
[2019-07-17] MEDS: ferrous sulfate EC 325 mg Tablet PO ×2 (09:00→17:00)
[2019-07-17] MEDS: sertraline 50 mg Tablet 75 MG PO (09:00)
[2019-07-17] MEDS: fluticasone nasal spray 16gm Btl 1 SPRAY INTRANASAL (09:01)
[2019-07-17] MEDS: nystatin powder 15 gm Btl 1 APPLIC TOPICAL ×2 (09:01→17:01)
--- NOTE | 2019-07-17 09:16 | P.PN_ITS ---
Subjective Subjective: Interval history: No overnight urine output documented, AM labs noted including hypercalcemia, stable Hg, slightly increased leukocytosis. Will check PTH and vitamin D levels. Remains on Trilogy support, hemodynamically stable. Patient quite restless during my encounter, requesting increase in dose of requip as she typically takes 4 mg at bedtime. Does not seem to be as itchy as she was yesterday. Does not feel like she is getting enough oxygen with her Trilogy so may have her switched to our BiPAP as we can adjust settings if needed. She seems to believe that she does not have much time left and reports I am so tired of fighting. We discussed her clinical status currently and I encouraged her to discuss what she is feeling with her family as well as that seems to be a source of great anxiety for her. Medications: Reviewed: Yes Medication Review Details: Active Medications Generic Name Dose Route Start Last Admin Trade Name Freq PRN Reason Stop Dose Admin Acetaminophen 650 mg 07/15/19 18:32 07/16/19 23:28 Tylenol PO 650 mg Q6H PRN Administration Mild/Mod Pain Or Temp >/= 101 Hydrocodone Bitart /Acetaminophen 1 tab 07/15/19 18:32 Matinicus 5-325 Mg PO Q8H PRN pain Alprazolam 0.5 mg 07/15/19 18:32 07/17/19 09:00 Xanax PO 0.5 mg TID PRN Administration Anxiety Bumetanide 1 mg 07/15/19 18:32 07/17/19 06:26 Bumex IV 1 mg Q12H MARIO Administration Ferrous Sulfate 325 mg 07/15/19 19:00 07/17/19 09:00 Ferrous Sulfate PO 325 mg BIDWM MARIO Administration Fluconazole 100 mg 07/16/19 09:00 07/17/19 09:00 Diflucan Tab PO 100 mg DAILY MARIO Administration Fluticasone Propio yogesh 1 spray 07/16/19 09:00 07/17/19 09:01 Flonase INTRANASAL 1 dose DAILY MARIO Administration Hydroxyzine Pamoat e 25 mg 07/16/19 15:01 Vistaril PO TID PRN ITCHING Lactulose 10 gm 07/15/19 19:00 07/17/19 09:01 Constulose PO Not Given BID MARIO Levothyroxine Sodi um 150 mcg 07/16/19 09:00 07/17/19 09:00 Synthroid PO 150 mcg DAILY MARIO Administration Levothyroxine Sodi um 25 mcg 07/16/19 09:00 07/17/19 09:00 Synthroid PO 25 mcg DAILY MARIO Administration Morphine Sulfate 2 mg 07/15/19 18:32 Morphine IVP Q4H PRN SEVERE PAIN Non-Formulary Medi cation 1 gm 07/15/19 18:32 07/17/19 09:01 Methenamine Sarah urate PO Not Given BID MARIO Nystatin 1 applic 07/15/19 19:00 07/17/19 09:01 Nystatin Powder TOPICAL 1 dose BID MARIO Administration Ondansetron HCl 4 mg 07/15/19 18:32 Zofran IVP Q6H PRN vomiting, or N/V if npo Potassium Chloride 20 meq 07/15/19 19:00 07/17/19 09:00 Klor-Con 10 PO 20 meq BID MARIO Administration Ropinirole HCl 2 mg 07/15/19 21:00 07/16/19 18:12 Requip PO 2 mg BEDTIME MARIO Administration Sertraline HCl 75 mg 07/16/19 09:00 07/17/19 09:00 Zoloft PO 75 mg DAILY MARIO Administration levofloxacin [From Levaquin] Allergy (Severe, Verified 05/17/19 15:07) ALGY-Swell Lip/Tongue/Throat Penicillins Allergy (Severe, Verified 05/17/19 15:07) ALGY-Swell Lip/Tongue/Throat Sulfa (Sulfonamide Antibiotics) Allergy (Severe, Verified 05/17/19 15:07) ALGY-Swell Lip/Tongue/Throat Vitals/I&O/Wt Last Vital Signs Temp 97.8 F 07/17/19 08:00 Pulse 96 07/17/19 08:00 Resp 18 07/17/19 08:00 BP 123/61 07/17/19 08:00 Pulse Ox 94 07/17/19 08:00 07/16/19 07/17/19 07/17/19 22:59 06:59 14:59 Intake Total 240 / 840 360 / 360 Output Total 350 / 971 Balance -110 / -131 360 / 360 Weight last 48 hrs Weight 113.353 kg Weight 112.037 kg Physical Exam Const: COMMON NORMALS: no apparent distress and oriented x3 GENERAL APPEARANCE: cooperative NUTRITIONAL APPEARANCE: obese morbidly obese ORIENTATION/CONSCIOUSNESS: Yes awake HENMT: COMMON NORMALS: normocephalic, head/scalp atraumatic and hearing grossly normal bilaterally HEAD & SCALP: normocephalic and atraumatic MOUTH: moist mucous membranes abnormal Details: parched Eye: COMMON NORMALS: PERRL, EOMs intact bilaterally and conjunctivae normal CONJUNCTIVA: Yes conjunctivae normal PUPIL: Yes PERRL Neck/C-Spine: GENERAL: Yes normal visual inspection and Yes trachea midline OTHER: -short, thick neck Chest: CHEST: Yes rash (skin lesions and crusted erosions on anterior chest, erythematous) Resp: COMMON NORMALS: normal respiratory effort, no retractions and no use of accessory muscles EFFORT & INSPECTION: Yes able to speak in complete sentences, Yes symmetric chest movement and No tachypneic AUSCULTATION: diminished lung sounds OTHER: -on Trilogy -auscultation limited by body habitus Cardio: COMMON NORMALS: regular rate, regular rhythm, S1 normal heart sound, S2 normal heart sound and no murmurs RATE: regular rate RHYTHM: regular rhythm HEART SOUNDS: S1 normal and S2 normal GI: COMMON NORMALS: normal to inspection, nondistended, normoactive bowel sounds, soft to palpation and non-tender INSPECTION: Yes central obesity PALPATION: Yes soft RECTAL EXAM: external hemorrhoid(s) Extremity: COMMON NORMALS: normal to inspection, full ROM and no clubbing, cyanosis or edema GENERAL: Yes edema (1+ pitting edema of bilateral LEs) Neuro: COMMON NORMALS: oriented x3, moves all extremities, no focal motor deficits and no sensory deficits noted Psych: COMMON NORMALS: mental status grossly normal, thought process normal, cooperative, affect normal and speech normal SPEECH: Yes normal speech THOUGHT PROCESS: normal thought process Skin: COMMON NORMALS: no jaundice, no petechiae and no mottling NARRATIVE SKIN EXAM: -Extensive blistering and crusted lesions on anterior chest, less extensive erythematous lesions in gluteal cleft and pubic area. Data : 07/17/19 05:03 07/17/19 05:03 A&P Assessment and plan (1) CHF (congestive heart failure): -acute on chronic diastolic CHF exacerbation as evidenced by increased SOB, LE edema, hypoxia even while using Trilogy, BNP elevation (2650) and evidence of fluid overload on imaging -Trilogy dependent at baseline -received 80 mg dose of IV Lasix in ED, is on Bumex at home, will continue d iuresis with IV bumex. Will give dose of metolazone as seems slow to diurese -continue to monitor Is & Os, daily weights -Echo (09/2018): limited study, EF=75%, no RWMA, PSP-36 -continue to monitor renal function and lytes with diuresis -cardiac diet as tolerated -telemetry monitoring -continue to monitor respiratory status -continue to monitor vital signs Status: Acute Qualifiers: Heart failure chronicity: acute on chronic Heart failure type: diastolic Qualified Code(s): I50.33 - Acute on chronic diastolic (congestive) heart failure (2) Acute on chronic respiratory failure: -chronically hypercapnic -hypoxic on her Trilogy, switched to BiPAP -close monitoring of respiratory status -ABG noted (7.44/55.8/77) -likely secondary to acute CHF exacerbation as noted above Status: Acute Qualifiers: Respiratory failure complication: hypoxia and hypercapnia Qualified Code(s): J96.21 - Acute and chronic respiratory failure with hypoxia; J96.22 - Acute and chronic respiratory failure with hypercapnia (3) Normocytic hypochromic anemia: -noted acutely worsening chronic normocytic anemia -baseline Hg is 8-9, current Hg 8.2 -iron panel noted, wnl -continue to monitor H/H Status: Acute (4) Pemphigus vulgaris: -f/u at [facility] (Dr. Chakraborty) Status: Chronic (5) ALONZO (obstructive sleep apnea): -on Trilogy Status: Chronic (6) Candidal intertrigo: -superimposed on pemphigus lesions, particularly worse in inguinal areas and below bilateral breasts -nystatin powder and diflucan due to extent of skin involvement Status: Acute (7) CKD (chronic kidney disease) stage 2, GFR 60-89 ml/min: -has CKD stage 2, baseline Cr wnl -continue to monitor renal function particularly with diuresis Status: Chronic (8) Hypothyroidism: -has hx of hypothyroidism -on levothyroxine Status: Chronic Qualifiers: Hypothyroidism type: unspecified Qualified Code(s): E03.9 - Hypothyroidism, unspecified (9) Rectovaginal fistula: -has hx of rectovaginal fistula, inoperable per surgery -f/u with Dr. Mistry -has had issues with perirectal abscesses that have required drainage, most rec ently one on the R drained in 03/2019 -on exam, seems to have sinus tracts; no fluctuance appreciated -keep area clean and dry, on bowel regimen Status: Chronic (10) Anxiety and depression: -on alprazolam Status: Chronic (11) Restless leg syndrome: -on ropinrole Status: Chronic (12) Morbid obesity: -BMI-46 kg/m2 Status: Chronic Additional A&P Information -OA, DJD, Chronic back pain -hypercalcemia; corrected Ca-12.5; check vitamin D, PTH levels, PTHrP. Review of old [employer] records shows prior SPEP done in 10/2017 showing monoclonal beta migrating paraprotein (IgA kappa) and UPEP showing mild paraproteinuria (no monoclonal protein detected). Repeat UPEP and SPEP. Had previously been seen by Heme/Onc -fall precautions -up with assist -DVT ppx with SCDs, hold off on AC due to noted anemia and associated bleeding risk -Dispo: return home, has HH services through [facility] -Code status: FULL code; we discussed intubation and though patient did not think it would help, was not clear about not wanting it if necessary. Attestations Medical Necessity Statement*: Patient requires hospitalization for continued IV diuresis for acutely decompensated CHF. Time Spent in Patient Care: 16 - 35 minutes (>than 50% of time spent in counselling and/or direct pt care on unit) . Coding Level of Care Code Acute Principal Network Engineer for Chg Fwd Exam Comprehensive Diagnoses CHF (congestive heart failure) I50.33 Heart failure chronicity: acute on chronic Heart failure type: diastolic Acute on chronic respiratory failure J96.21; J96.22 Respiratory failure complication: hypoxia and hypercapnia Normocytic hypochromic anemia D50.9 Pemphigus vulgaris L10.0 ALONZO (obstructive sleep apnea) G47.33 Candidal intertrigo B37.2 CKD (chronic kidney disease) stage 2, GFR 60-89 ml/min N18.2 Hypothyroidism E03.9 Hypothyroidism type: unspecified Rectovaginal fistula N82.3 Anxiety and depression F41.9; F32.9 Restless leg syndrome G25.81 Morbid obesity E66.01
[2019-07-17 10:17] LABS: 25 Hydroxy Vitamin D 39 ng/mL (30-100)
[2019-07-17 10:53] LABS: Calcium 11.7 mg/dL (8.5-10.5); Parathyroid Hormone 10.1 pg/mL (15-65)
[2019-07-17] MEDS: ropinirole 2 mg Tablet 4 MG PO (19:55)
[2019-07-17] MEDS: acetaminophen 325 mg Tablet 650 MG PO (21:24)
[2019-07-17] MEDS: hyDROXYzine 25 mg Capsule PO (21:24)
[2019-07-18] VITALS (15 sets, daily range): BP systolic 89–130; BP diastolic 51–74; PULSE 74–90; RESP 14–24; TEMP 36.4–36.9; O2SAT 90–97
[2019-07-18 05:54] LABS: Hematocrit 27.3 % (37.0-47.0)
[2019-07-18 06:09] LABS: Anion Gap 13.8 (5-19); Blood Urea Nitrogen 21 mg/dL (8-23); Calcium 12.4 mg/dL (8.5-10.5); Carbon Dioxide 36 mmol/L (22-29); Chloride 93 mmol/L (98-107); Glucose 114 mg/dL (65-115); Osmolality Calculated 285 mOsm/kg (285-295); Potassium 3.8 mmol/L (3.5-5.1); Sodium 139 mmol/L (136-145)
[2019-07-18] MEDS: bumetanide 0.25 mg/mL SDV 10 mL 1 MG IV ×2 (06:22→18:07)
[2019-07-18] MEDS: levothyroxine 25 mcg Tablet PO (08:54)
[2019-07-18] MEDS: sertraline 50 mg Tablet 75 MG PO (08:54)
[2019-07-18] MEDS: levothyroxine 150 mcg Tablet PO (08:54)
[2019-07-18] MEDS: fluconazole 100 mg Tablet PO (08:54)
[2019-07-18] MEDS: ferrous sulfate EC 325 mg Tablet PO ×2 (08:54→17:33)
[2019-07-18] MEDS: fluticasone nasal spray 16gm Btl 1 SPRAY INTRANASAL (09:14)
[2019-07-18] MEDS: lactulose oral liq 20 gm/30 mL UDC 10 GM PO ×2 (09:15→17:31)
[2019-07-18] MEDS: nystatin powder 15 gm Btl 1 APPLIC TOPICAL ×2 (09:15→17:33)
--- NOTE | 2019-07-18 09:52 | PC.SOCIAL ---
Pg 2 IMM Explained to pt via phone, Pg 2 IMM. No questions voiced. Will provide pt a copy. Signed, dated, & timed a copy & placed in pt's chart.
--- NOTE | 2019-07-18 12:12 | CT_ITS ---
WS: [id number] CT CHEST ANGIOGRAPHY WITH REFORMATS HISTORY: COPD, CHF, r/o PE TECHNIQUE: Contiguous axial images are obtained through the chest during arterial injection of intrav enous contrast. Images are reconstructed to evaluate the pulmonary arteries. MIP imaging also reviewe d. All CT scans at [facility] use at least one of these dose optimization techniques: aut omated exposure control; mA and/or kV adjustment per patient size (includes targeted exams where dose is matched to clinical indication); or iterative reconstruction. CONTRAST: Omnipaque 350; 95 mL IV. DLP: 1481.83 mGy.cm COMPARISON: 01/07/2019 Limited evaluation of the pulmonary arteries due to injection. Centrally there is no pulmonary emboli sm. Poor opacification beyond the main pulmonary branches. Mixed opacification heterogeneity. PE lázaro ot be excluded. Pulmonary artery size is normal. No RIGHT heart strain. Moderate enlargement of the a tria. Normal size aorta. Lung volumes are decreased with dependent changes and atelectasis. Elevation of the RIGHT hemidiaphra gm resulting in compressive atelectasis at the RIGHT lung base. No adenopathy. No abnormality noted in the upper abdomen. Increase in thoracic kyphosis. CT/CT angio chest PE protcl [id number] IMPRESSION: 1. Very limited evaluation of the pulmonary arteries. Limitation due to body h abitus and poor arterial opacification. Centrally there is no pulmonary embolis m. Beyond the main branches the opacification is insufficient to exclude pulmon gustavo embolism. 2. Volume loss bilaterally with chronic elevation of the RIGHT diaphragm. 3. Cardiomegaly with moderate biatrial enlargement.
--- NOTE | 2019-07-18 12:44 | PC.NURSE ---
Call recieved from patient daughter Rafaela regarding patient confusion stating patient said told her she was going to be intubated due to kidney failure and will need to stay in the hospital for a while. Call referred to patient nurse.
[2019-07-18 12:56] LABS: Procalcitonin 0.08 ng/mL (0-0.5)
--- NOTE | 2019-07-18 13:49 | PM.PN ---
Subjective Subjective: Interval history: No acute events overnight. On evaluation patient had just been taken off BiPAP and is getting ready to have her lunch. She states she is feeling tired though she does think that she is improving a little bit. She denies having any nausea, vomiting, headache, dizziness, abdominal pain, diarrhea at present. Patient states she is feeling tired of dealing with everything. She is AO x3. Discussed with patient detail regarding the CODE STATUS. Patient states she would not want to be intubated because she thinks if she is put on a ventilator she cannot be extubated unfortunately. Though she does want chest compression if required. Patient's son Mr. Ventura. He is been agreeable with patient being limited resuscitation to on chest compressions for now. Vitals/I&O/Wt Last Vital Signs Temp 98.2 F 07/18/19 11:30 Pulse 74 07/18/19 11:30 Resp 20 H 07/18/19 11:30 BP 130/74 07/18/19 11:30 Pulse Ox 91 07/18/19 11:30 07/17/19 07/18/19 07/18/19 22:59 06:59 14:59 Intake Total 460 / 1060 600 / 600 Output Total 400 / 800 450 / 1250 Balance 60 / 260 -450 / -190 600 / 600 Weight last 48 hrs Weight 117.753 kg Physical Exam Narrative: EXAM NARRATIVE: General: No acute distress, AO x3, Looking tired, On NC 3 L HEENT: PERRLA, pupils bilaterally equal and reactive Chest: Decreased air entry b/l, bilateral coarse crackles lower zone, bronchial breath sounds all over the lung louie CVS: S1-S2 regular, no murmurs, no tachycardia, no gallops, no rubs, JVD difficult to assess due to morbid obesity. Abdomen: Morbidly obese, soft, nontender, no organomegaly, bowel sounds present Neuro: No focal deficits, no facial deformity, AO x3, power 5/5 in all limbs Data : 07/18/19 05:40 07/18/19 05:40 A&P Assessment and plan (1) Acute on chronic respiratory failure: Status: Acute Qualifiers: Respiratory failure complication: hypoxia and hypercapnia Qualified Code(s): J96.21 - Acute and chronic respiratory failure with hypoxia; J96.22 - Acute and chronic respiratory failure with hypercapnia (2) COPD (chronic obstructive pulmonary disease): Status: Acute (3) CHF (congestive heart failure): Status: Acute Qualifiers: Heart failure chronicity: acute on chronic Heart failure type: diastolic Qualified Code(s): I50.33 - Acute on chronic diastolic (congestive) heart failure (4) ALONZO (obstructive sleep apnea): -on Trilogy Status: Chronic (5) Normocytic hypochromic anemia: -noted acutely worsening chronic normocytic anemia -baseline Hg is 8-9, current Hg 8.2 -iron panel noted, wnl -continue to monitor H/H Status: Acute (6) Pemphigus vulgaris: -f/u at [facility] (Dr. 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 More than 2600proBNP elevated on admission which is the highest it has been over last 1 year. Echo from 09/2018 limited study: EF 25%, no other WMA, PASP 36. Continue with IV Bumex 1 mg IV every 12 hourly. Patient has poor urine output so we will give metolazone 5 mg for 3 days. Telemetry monitoring. Daily weights, strict input output charting. We will start patient on DuoNeb's every 6 hourly, budesonide twice daily. We will also start patient on low-dose Solu-Medrol 40 mg IV twice daily for now. Oxygen supplementation keeping saturation over 90%. We will give a trial of Trelegy ventilation once patient has had her meals. BiPAP ventilation as needed. Pemphigus vulgaris with candidal intertigo: Patient already started on nystatin powder and Diflucan for extensive skin involvement. We will continue to for now. Will reassess on discharge. CKD stage II: Creatinine at baseline. Continue to monitor BMP daily. Medication reconciled for nephrotoxic drugs. Hypothyroidism: Continue with home dose of levothyroxine. History of rectovaginal fistula:Iinoperable per surgery f/u with Dr. Mistry has had issues with perirectal abscesses that have required drainage, most recently one on the R drained in 03/2019 on exam, seems to have sinus tracts; no fluctuance appreciated keep area clean and dry, on bowel regimen. Continue chronic medications like alprazolam, Requip for anxiety and restless leg syndrome. Hypercalcemia; corrected Ca-12.5; check vitamin D, PTH levels, PTHrP. Review of old [facility] records shows prior SPEP done in 10/2017 showing monoclonal beta migrating paraprotein (IgA kappa) and UPEP showing mild paraproteinuria (no monoclonal protein detected). Repeat UPEP and SPEP. Had previously been seen by Heme/Onc -fall precautions -up with assist -DVT ppx with SCDs, hold off on AC due to noted anemia and associated bleeding risk -Dispo: return home, has HH services through [facility] -Code status: CODE STATUS changed to limited resuscitation to only chest compression. Son notified. Attestations Medical Necessity Statement*: Acute on chronic respiratory failure Time Spent in Patient Care: Greater than 35 minutes (>than 50% of time spent in counselling and/or direct pt care on unit). Coding Level of Care Code Acute Superintendent Service for Chg Fwd Diagnoses Acute on chronic respiratory failure J96.21; J96.22 Respiratory failure complication: hypoxia and hypercapnia COPD (chronic obstructive pulmonary disease) J44.9 CHF (congestive heart failure) I50.33 Heart failure chronicity: acute on chronic Heart failure type: diastolic ALONZO (obstructive sleep apnea) G47.33 Normocytic hypochromic anemia D50.9 Pemphigus vulgaris L10.0 Candidal intertrigo B37.2 CKD (chronic kidney disease) stage 2, GFR 60-89 ml/min N18.2 Hypothyroidism E03.9 Hypothyroidism type: unspecified Rectovaginal fistula N82.3 Anxiety and depression F41.9; F32.9 Restless leg syndrome G25.81 Morbid obesity E66.01
[2019-07-18] MEDS: ipratropium-albuterol 3 mL Neb INHALATION ×2 (14:41→20:59)
[2019-07-18] MEDS: iohexol 350 mg/mL 100 mL Btl IV ×2 (15:36→15:40)
[2019-07-18] MEDS: ropinirole 2 mg Tablet 4 MG PO (17:36)
[2019-07-18] MEDS: budesonide 0.5 mg/2 mL Neb INHALATION ×2 (20:59→21:00)
[2019-07-19] VITALS (14 sets, daily range): BP systolic 90–117; BP diastolic 47–65; PULSE 72–88; RESP 17–28; TEMP 36.3–37.6; O2SAT 87–95
[2019-07-19] MEDS: ipratropium-albuterol 3 mL Neb INHALATION ×4 (03:30→21:10)
[2019-07-19 03:42] LABS: Eosinophils # 0.3 10^3/uL (0.0-0.8); Hematocrit 28.2 % (37.0-47.0); Hemoglobin 8.2 g/dL (11.5-15.3); Mean Corpuscular HGB Conc 29.1 g/dL (30.0-36.0); Mean Corpuscular Hemoglobin 25.5 pg (28.0-34.0); Mean Corpuscular Volume 87.6 fL (81-99); Nucleated Red Blood Cells # 0.2 /100WBC; Nucleated Red Blood Cells % 1.1 %; Platelet Count 145 10^3/cmm (130-400); Red Blood Count 3.22 10^6/uL (4.1-5.3); Red Cell Distribution Width 17.8 % (12.1-15.1); White Blood Count 13.9 10^3/uL (4.0-10.0)
[2019-07-19 04:19] LABS: Alanine Aminotransferase 16 U/L (0-33); Albumin Level 3.2 g/dL (3.5-5.2); Alkaline Phosphatase 109 IU/L (35-105); Anion Gap 16.6 (5-19); Aspartate Amino Transferase 25 U/L (0-32); Blood Urea Nitrogen 20 mg/dL (8-23); Calcium 12.3 mg/dL (8.5-10.5); Carbon Dioxide 33 mmol/L (22-29); Chloride 95 mmol/L (98-107); Globulin 4.3 g/dL (1.3-4.6); Glucose 141 mg/dL (65-115); Osmolality Calculated 289 mOsm/kg (285-295); Potassium 4.6 mmol/L (3.5-5.1); Sodium 140 mmol/L (136-145); Total Bilirubin 0.3 mg/dL (0.15-1.2); Total Protein 7.5 g/dL (6.6-8.7)
[2019-07-19 04:21] LABS: Slide Review Slide Review Perform
[2019-07-19 04:23] LABS: Band Neutrophils Absolute 0.8 10^3/cmm (0.0-1.2); Lymphocytes 33 %; Monocytes Absolute 0.4 10^3/cmm (0.1-0.6); Segmented Neutrophils 51 %; Smudge Cells Trace; Total Cells Counted 100 (0-100)
[2019-07-19 04:24] LABS: Anisocytosis Trace; Platelet Estimate Decreased (Normal)
[2019-07-19 04:26] LABS: Blastocytes 1 % (0-0)
[2019-07-19] MEDS: bumetanide 0.25 mg/mL SDV 10 mL 1 MG IV (05:23)
[2019-07-19] MEDS: budesonide 0.5 mg/2 mL Neb INHALATION ×2 (08:16→21:10)
[2019-07-19] MEDS: acetaminophen 325 mg Tablet 650 MG PO (08:43)
[2019-07-19] MEDS: ferrous sulfate EC 325 mg Tablet PO ×2 (08:44→16:53)
[2019-07-19] MEDS: fluconazole 100 mg Tablet PO (08:44)
[2019-07-19] MEDS: levothyroxine 150 mcg Tablet PO (08:44)
[2019-07-19] MEDS: lactulose oral liq 20 gm/30 mL UDC 10 GM PO ×2 (08:45→16:53)
[2019-07-19] MEDS: sertraline 50 mg Tablet 75 MG PO (08:45)
[2019-07-19] MEDS: levothyroxine 25 mcg Tablet PO (08:45)
[2019-07-19] MEDS: fluticasone nasal spray 16gm Btl 1 SPRAY INTRANASAL (09:00)
[2019-07-19] MEDS: nystatin powder 15 gm Btl 1 APPLIC TOPICAL ×2 (09:02→16:53)
[2019-07-19] MEDS: FUROsemide 10 mg/mL SDV 10mL 60 MG IVP ×2 (10:25→20:59)
[2019-07-19] MEDS: metOLazone 5 MG Tablet PO (10:25)
--- NOTE | 2019-07-19 10:38 | P.PN_ITS ---
Subjective Subjective: Interval history: No acute events overnight. Overnight patient has remained on trilogy machine and has done has done well. On examination she is on trilogy feeling comfortable. Had breakfast in the morning without having any problem of pathology. Denies of having any nausea, vomiting, headache, dizziness. Patient is AO x3. Vitals/I&O/Wt Last Vital Signs Temp 97.5 F L 07/19/19 08:00 Pulse 75 07/19/19 08:22 Resp 18 07/19/19 08:16 BP 117/61 07/19/19 08:00 Pulse Ox 95 07/19/19 08:22 07/18/19 07/19/19 07/19/19 22:59 06:59 14:59 Intake Total 480 / 1080 480 / 480 Output Total 130 / 330 325 / 655 Balance 350 / 750 -325 / 425 480 / 480 Weight last 48 hrs Weight 118.614 kg Weight 117.753 kg Physical Exam Narrative: EXAM NARRATIVE: General: No acute distress, AO x3, Looking tired, On NC 3 L HEENT: PERRLA, pupils bilaterally equal and reactive Chest: Decreased air entry b/l, bilateral coarse crackles lower zone, bronchial breath sounds all over the lung louie CVS: S1-S2 regular, no murmurs, no tachycardia, no gallops, no rubs, JVD difficult to assess due to morbid obesity. Abdomen: Morbidly obese, soft, nontender, no organomegaly, bowel sounds present Neuro: No focal deficits, no facial deformity, AO x3, power 5/5 in all limbs Urinary Catheter Management^: Wilkins: Cath Placed During This Visit: yes Urinary Catheter Date of Insertion: 07/19/19 Urinary Catheter Time of Insertion: 10:16 Data : 07/19/19 03:05 07/19/19 03:05 A&P Assessment and plan (1) Acute on chronic respiratory failure: Status: Acute Qualifiers: Respiratory failure complication: hypoxia and hypercapnia Qualified Code(s): J96.21 - Acute and chronic respiratory failure with hypoxia; J96.22 - Acute and chronic respiratory failure with hypercapnia (2) COPD (chronic obstructive pulmonary disease): Status: Acute (3) CHF (congestive heart failure): Status: Acute Qualifiers: Heart failure chronicity: acute on chronic Heart failure type: diastolic Qualified Code(s): I50.33 - Acute on chronic diastolic (congestive) heart failure (4) ALONZO (obstructive sleep apnea): -on Trilogy Status: Chronic (5) Normocytic hypochromic anemia: -noted acutely worsening chronic normocytic anemia -baseline Hg is 8-9, current Hg 8.2 -iron panel noted, wnl -continue to monitor H/H Status: Acute (6) 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 More than 2600 proBNP elevated on admission which is the highest it has been over last 1 year. Echo from 09/2018 limited study: EF 25%, no other WMA, PASP 36. Urine output still on the lower side as per the charting. Wilkins catheterization for strict input output charting. Change Bumex 1 mg IV twice daily basis 60 mg IV twice daily. Metolazone 5 mg daily for 3 days. Telemetry monitoring. Daily weights, strict input output charting. We will start patient on DuoNeb's every 6 hourly, budesonide twice daily. We will also start patient on low-dose Solu-Medrol 40 mg IV twice daily for now. Oxygen supplementation keeping saturation over 90%. Continue with trilogy ventilation. We will try to get her off trilogy to nasal cannula. Can use Xanax 0.25 mg every 8 hourly as needed. As patient has been on trilogy since last night will get an ABG. BiPAP ventilation as needed. Pemphigus vulgaris with candidal intertigo: Patient already started on nystatin powder and Diflucan for extensive skin involvement. We will continue to for now. Will reassess on discharge. CKD stage II: Creatinine at baseline. Continue to monitor BMP daily. Medication reconciled for nephrotoxic drugs. Hypothyroidism: Continue with home dose of levothyroxine. History of rectovaginal fistula:Iinoperable per surgery f/u with Dr. Mistry has had issues with perirectal abscesses that have required drainage, most recently one on the R drained in 03/2019 on exam, seems to have sinus tracts; no fluctuance appreciated keep area clean and dry, on bowel regimen. Continue chronic medications like alprazolam, Requip for anxiety and restless leg syndrome. Hypercalcemia; corrected Ca-12.5; check vitamin D, PTH levels, PTHrP. Review of old [facility] records shows prior SPEP done in 10/2017 showing monoclonal beta migrating paraprotein (IgA kappa) and UPEP showing mild paraproteinuria (no monoclonal protein detected). Repeat UPEP and SPEP. Had previously been seen by Heme/Onc -fall precautions -up with assist. PT/OT -DVT ppx : Lovenox 40 mg SQ daily. Check Hb daily. Protonix for PUD ppx -Dispo: return home, has HH services through [facility] -Code status: CODE STATUS changed to limited resuscitation to only chest compression. Son notified. Attestations Medical Necessity Statement*: Acute hypercapnic respiratory failure, COPD exacerbation, CHF exacerbation, trilogy dependent Coding Level of Care Code Acute X Ray Technologist for g Fwd Diagnoses Acute on chronic respiratory failure J96.21; J96.22 Respiratory failure complication: hypoxia and hypercapnia COPD (chronic obstructive pulmonary disease) J44.9 CHF (congestive heart failure) I50.33 Heart failure chronicity: acute on chronic Heart failure type: diastolic ALONZO (obstructive sleep apnea) G47.33 Normocytic hypochromic anemia D50.9 Pemphigus vulgaris L10.0 Candidal intertrigo B37.2 CKD (chronic kidney disease) stage 2, GFR 60-89 ml/min N18.2 Hypothyroidism E03.9 Hypothyroidism type: unspecified Rectovaginal fistula N82.3 Anxiety and depression F41.9; F32.9 Restless leg syndrome G25.81 Morbid obesity E66.01
--- NOTE | 2019-07-19 10:40 | PC.NURSE ---
Trilogy placed back on patient. RT in room. ABG order put in computer.
[2019-07-19 14:05] LABS: ABG PCO2 53.6 mmHg (35-45); ABG PH Result 7.43 (7.35-7.45); Alveolar-Arterial Oxygen Gradi 116.7 mmHg (5-10); Base Excess ABG 9.5 mmol/L (-2.0-2.0); Blood Gas Allen Test Pos; Blood Gas Operator Identificat amh; Blood Gas Sample Site Radial, left; Blood Gas Sample Type Arterial; Carboxyhemoglobin 0.8 %THgb (0.4-20.1); HCO3 ABG 35.1 mmol/L (22-26); Ionized Calcium Level - ABG 1.6 mmol/L (1.1-1.4); Methemoglobin 0.9 % (0.4-1.5); Oxygen Device BIPAP; Oxygen Saturation ABG 93.7; PO2 ABG 70.3 mmHg (80.0-100.0); Potassium Level - ABG 4.3 mmol/L (3.5-5.0); Total Hemoglobin 8.8 g/dL (12-16)
[2019-07-19] MEDS: ALPRAZolam 0.5 mg Tablet PO (16:53)
[2019-07-19] MEDS: ropinirole 2 mg Tablet 4 MG PO (16:53)
[2019-07-19] MEDS: enoxaparin 40 mg/0.4 mL Syringe SUBCUT (17:59)
[2019-07-20] VITALS (13 sets, daily range): BP systolic 105–129; BP diastolic 62–74; PULSE 72–94; RESP 17–24; TEMP 36.4–37.1; O2SAT 92–99; BMI 47.2
[2019-07-20] MEDS: ipratropium-albuterol 3 mL Neb INHALATION ×4 (03:34→20:06)
[2019-07-20 05:28] LABS: Basophils % 0.2 %; Eosinophils % 0.2 %; Hematocrit 27.3 % (37.0-47.0); Lymphocytes # 1.7 10^3/uL (0.8-4.8); Lymphocytes % 10.1 %; Mean Corpuscular HGB Conc 29.3 g/dL (30.0-36.0); Mean Corpuscular Volume 85.3 fL (81-99); Mean Platelet Volume 11.2 fL (7.4-10.4); Monocytes # 6.1 10^3/uL (0.2-0.9); Monocytes % 36.6 %; Neutrophils # 7.3 10^3/uL (1.8-7.7); Nucleated Red Blood Cells # 0.1 /100WBC; Nucleated Red Blood Cells % 0.5 %; Platelet Count 137 10^3/cmm (130-400); Red Cell Distribution Width 17.7 % (12.1-15.1); White Blood Count 16.7 10^3/uL (4.0-10.0)
[2019-07-20 05:44] LABS: Alanine Aminotransferase 16 U/L (0-33); Albumin Level 3.5 g/dL (3.5-5.2); Alkaline Phosphatase 107 IU/L (35-105); Anion Gap 14.9 (5-19); Aspartate Amino Transferase 22 U/L (0-32); Blood Urea Nitrogen 29 mg/dL (8-23); Calcium 13.5 mg/dL (8.5-10.5); Carbon Dioxide 36 mmol/L (22-29); Chloride 92 mmol/L (98-107); Globulin 4.3 g/dL (1.3-4.6); Glucose 179 mg/dL (65-115); Osmolality Calculated 290 mOsm/kg (285-295); Potassium 3.9 mmol/L (3.5-5.1); Sodium 139 mmol/L (136-145); Total Bilirubin 0.2 mg/dL (0.15-1.2); Total Protein 7.8 g/dL (6.6-8.7)
[2019-07-20 06:05] LABS: Slide Review Slide Review Perform
[2019-07-20] MEDS: FUROsemide 10 mg/mL SDV 10mL 60 MG IVP (09:40)
[2019-07-20] MEDS: ferrous sulfate EC 325 mg Tablet PO ×2 (09:46→16:37)
[2019-07-20] MEDS: pantoprazole DR 40 mg Tablet PO (09:47)
[2019-07-20] MEDS: sertraline 50 mg Tablet 75 MG PO (09:48)
[2019-07-20] MEDS: fluticasone nasal spray 16gm Btl 1 SPRAY INTRANASAL (09:52)
[2019-07-20] MEDS: fluconazole 100 mg Tablet PO (09:53)
[2019-07-20] MEDS: lactulose oral liq 20 gm/30 mL UDC 10 GM PO (09:53)
[2019-07-20] MEDS: levothyroxine 150 mcg Tablet PO (09:53)
[2019-07-20] MEDS: levothyroxine 25 mcg Tablet PO (09:54)
[2019-07-20] MEDS: nystatin powder 15 gm Btl 1 APPLIC TOPICAL ×2 (09:56→16:39)
[2019-07-20] MEDS: metOLazone 5 MG Tablet PO (10:00)
[2019-07-20] MEDS: budesonide 0.5 mg/2 mL Neb INHALATION ×2 (10:07→20:06)
--- NOTE | 2019-07-20 11:41 | PC.SOCIAL ---
IMM Update Pg 2 of IMM given and explained to patient who verbalized understanding. Copy provided.
--- NOTE | 2019-07-20 13:51 | PM.PN ---
Subjective Subjective: Interval history: No acute events overnight. Overnight patient had remained on trilogy machine but since around 6 AM she is on nasal cannula 4 L saturating more than 94%. On examination patient is stating she is feeling little better but continues to feel depressed. She denies of having any nausea, vomiting, headache, palpitations, cough. During my examination patient's nasal cannula supplementation was decreased to 3 L and she continued to remain over 92% on oxygen saturation. Vitals/I&O/Wt Last Vital Signs Temp 98.3 F 07/20/19 11:09 Pulse 91 07/20/19 11:09 Resp 20 H 07/20/19 11:09 BP 115/74 07/20/19 11:09 Pulse Ox 94 07/20/19 11:09 07/19/19 07/20/19 07/20/19 22:59 06:59 14:59 Intake Total 240 / 240 Output Total 1200 / 1400 2049 / 2049 Balance -1200 / -800 -1810 / -1810 Weight last 48 hrs Weight 117.055 kg Weight 117.055 kg Weight 119.476 kg Weight 118.614 kg Physical Exam Narrative: EXAM NARRATIVE: General: No acute distress, AO x3, Looking tired, On NC 3 L HEENT: PERRLA, pupils bilaterally equal and reactive Chest: Decreased air entry b/l, bilateral coarse crackles lower zone, bronchial breath sounds all over the lung louie CVS: S1-S2 regular, no murmurs, no tachycardia, no gallops, no rubs, JVD difficult to assess due to morbid obesity. Abdomen: Morbidly obese, soft, nontender, no organomegaly, bowel sounds present Neuro: No focal deficits, no facial deformity, AO x3, power 5/5 in all limbs Urinary Catheter Management^: Wilkins: Cath Placed During This Visit: yes Reason for Continuing Indwelling Catheter: Other Urinary Catheter Date of Insertion: 07/19/19 Urinary Catheter Time of Insertion: 10:16 Data : 07/20/19 05:00 07/20/19 05:00 A&P Assessment and plan (1) Acute on chronic respiratory failure: Status: Acute Qualifiers: Respiratory failure complication: hypoxia and hypercapnia Qualified Code(s): J96.21 - Acute and chronic respiratory failure with hypoxia; J96.22 - Acute and chronic respiratory failure with hypercapnia (2) COPD (chronic obstructive pulmonary disease): Status: Acute (3) CHF (congestive heart failure): Status: Acute Qualifiers: Heart failure type: diastolic Heart failure chronicity: acute on chronic Qualified Code(s): I50.33 - Acute on chronic diastolic (congestive) heart failure (4) ALONZO (obstructive sleep apnea): -on Trilogy Status: Chronic (5) Normocytic hypochromic anemia: -noted acutely worsening chronic normocytic anemia -baseline Hg is 8-9, current Hg 8.2 -iron panel noted, wnl -continue to monitor H/H Status: Acute (6) Pemphigus vulgaris: -f/u at [facility] (Dr. 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 More than 2600 proBNP elevated on admission which is the highest it has been over last 1 year. Echo from 09/2018 limited study: EF 75%, no other WMA, PASP 36. Urine output as per chart is a lot better since patient has been catheterized. Patient has put out around 3.5 L in last 24 hours. Change Lasix to oral 80 mg twice daily. Continue with DuoNeb 6 hourly and budesonide twice daily. Will start de-escalating Solu-Medro. Decreased to 40 mg IV daily today and change to prednisone 40 mg daily from tomorrow. Oxygen supplementation keeping saturation over 90%. Continue with nasal cannula oxygen supplementation for now, transfer over to [facility] once patient is retired. Target saturation goal is 90%. We will try to avoid over oxygenation. Can use Xanax 0.25 mg every 8 hourly as needed. BiPAP ventilation as needed. Pemphigus vulgaris with candidal intertigo: Patient already started on nystatin powder and Diflucan for extensive skin involvement. Finished 5 days of treatment. Will start on clotrimazole cream CKD stage II: Creatinine at baseline. Continue to monitor BMP daily. Medication reconciled for nephrotoxic drugs. Hypothyroidism: Continue with home dose of levothyroxine. History of rectovaginal fistula:Inoperable per surgery f/u with Dr. Mistry has had issues with perirectal abscesses that have required drainage, most recently one on the R drained in 03/2019 on exam, seems to have sinus tracts; no fluctuance appreciated keep area clean and dry, on bowel regimen. Continue chronic medications like alprazolam, Requip for anxiety and restless leg syndrome. Hypercalcemia; Review of old [facility] records shows prior SPEP done in 10/2017 showing monoclonal beta migrating paraprotein (IgA kappa) and UPEP showing mild paraproteinuria (no monoclonal protein detected). PTH levels and vitamin D levels low. PTH RP levels awaited. We will also check serum 1, 25 vitamin D levels. Repeat UPEP and SPEP. Had previously been seen by Heme/Onc -fall precautions -up with assist. PT/OT -DVT ppx : Lovenox 40 mg SQ daily. Check Hb daily. Protonix for PUD ppx -Dispo: return home, has HH services through [facility]. If continues to do well can plan for discharge in the next 2 days. -Code status: CODE STATUS changed to limited resuscitation to only chest compression. Son notified. Attestations Medical Necessity Statement*: Acute on chronic hypercapnic respiratory failure Time Spent in Patient Care: Greater than 35 minutes Coding Level of Care Code Acute Crop Adjuster for [facility] Fwd Diagnoses Acute on chronic respiratory failure J96.21; J96.22 Respiratory failure complication: hypoxia and hypercapnia COPD (chronic obstructive pulmonary disease) J44.9 CHF (congestive heart failure) I50.33 Heart failure type: diastolic Heart failure chronicity: acute on chronic ALONZO (obstructive sleep apnea) G47.33 Normocytic hypochromic anemia D50.9 Pemphigus vulgaris L10.0 Candidal intertrigo B37.2 CKD (chronic kidney disease) stage 2, GFR 60-89 ml/min N18.2 Hypothyroidism E03.9 Hypothyroidism type: unspecified Rectovaginal fistula N82.3 Anxiety and depression F41.9; F32.9 Restless leg syndrome G25.81 Morbid obesity E66.01
[2019-07-20 15:06] LABS: Creatinine, Random Urine 60 mg/dL (20-275); Protein, Total, Random 60 mg/dL (5-24); Protein/Creatinine Ratio 1000 mg/g creat (21-161)
[2019-07-20] MEDS: FUROsemide 40 mg Tablet 80 MG PO (16:36)
[2019-07-20] MEDS: clotrimazole-betamethasone cream 15gm 1 APPLIC TOPICAL (16:36)
[2019-07-20] MEDS: ropinirole 2 mg Tablet 4 MG PO (16:37)
[2019-07-20] MEDS: enoxaparin 40 mg/0.4 mL Syringe SUBCUT (16:38)
[2019-07-21] VITALS (14 sets, daily range): BP systolic 101–137; BP diastolic 62–83; PULSE 78–97; RESP 16–20; TEMP 36.5–36.9; O2SAT 90–97; BMI 47.2
[2019-07-21] MEDS: ondansetron 2 mg/ML SDV 2 mL 4 MG IVP (01:05)
[2019-07-21] MEDS: ALPRAZolam 0.5 mg Tablet PO ×2 (01:06→21:44)
[2019-07-21] MEDS: ipratropium-albuterol 3 mL Neb INHALATION ×4 (03:28→20:14)
[2019-07-21] MEDS: budesonide 0.5 mg/2 mL Neb INHALATION ×2 (08:31→20:14)
[2019-07-21] MEDS: levothyroxine 150 mcg Tablet PO (09:13)
[2019-07-21] MEDS: levothyroxine 25 mcg Tablet PO (09:13)
[2019-07-21] MEDS: pantoprazole DR 40 mg Tablet PO (09:13)
[2019-07-21] MEDS: metOLazone 5 MG Tablet PO (09:13)
[2019-07-21] MEDS: ferrous sulfate EC 325 mg Tablet PO ×2 (09:13→17:45)
[2019-07-21] MEDS: predniSONE 20 mg Tablet 40 MG PO (09:13)
[2019-07-21] MEDS: mirtazapine 30 mg Tablet PO (09:14)
[2019-07-21] MEDS: FUROsemide 40 mg Tablet 80 MG PO (09:14)
[2019-07-21] MEDS: fluticasone nasal spray 16gm Btl 1 SPRAY INTRANASAL (09:15)
[2019-07-21] MEDS: clotrimazole-betamethasone cream 15gm 1 APPLIC TOPICAL ×3 (09:16→21:44)
[2019-07-21] MEDS: nystatin powder 15 gm Btl 1 APPLIC TOPICAL ×2 (09:16→17:46)
[2019-07-21 11:06] LABS: Alanine Aminotransferase 17 U/L (0-33); Albumin Level 3.5 g/dL (3.5-5.2); Alkaline Phosphatase 108 IU/L (35-105); Anion Gap 14.4 (5-19); Aspartate Amino Transferase 26 U/L (0-32); Blood Urea Nitrogen 44 mg/dL (8-23); Carbon Dioxide 39 mmol/L (22-29); Chloride 92 mmol/L (98-107); Globulin 4.2 g/dL (1.3-4.6); Glucose 148 mg/dL (65-115); Osmolality Calculated 295 mOsm/kg (285-295); Potassium 3.4 mmol/L (3.5-5.1); Sodium 142 mmol/L (136-145); Total Bilirubin 0.2 mg/dL (0.15-1.2); Total Protein 7.7 g/dL (6.6-8.7)
--- NOTE | 2019-07-21 11:13 | PM.PN ---
Subjective Subjective: Interval history: No acute events overnight. On examination patient lying comfortably in bed on 4 L nasal cannula with saturation over 92%. States she is feeling little tired. As per the nurse patient has been anxious whenever she gets of the trilogy machine. Patient saturation has maintained well while being off trilogy. Patient herself denies of having any nausea, vomiting or palpitation, dysuria, headache. Medications: Reviewed: Yes Medication Review Details: Active Medications Generic Name Dose Route Start Last Admin Trade Name Freq PRN Reason Stop Dose Admin Acetaminophen 650 mg 07/15/19 18:32 07/16/19 23:28 Tylenol PO 650 mg Q6H PRN Administration Mild/Mod Pain Or Temp >/= 101 Hydrocodone Bitart /Acetaminophen 1 tab 07/15/19 18:32 Summit 5-325 Mg PO Q8H PRN pain Alprazolam 0.5 mg 07/15/19 18:32 07/17/19 09:00 Xanax PO 0.5 mg TID PRN Administration Anxiety Bumetanide 1 mg 07/15/19 18:32 07/17/19 06:26 Bumex IV 1 mg Q12H MARIO Administration Ferrous Sulfate 325 mg 07/15/19 19:00 07/17/19 09:00 Ferrous Sulfate PO 325 mg BIDWM MARIO Administration Fluconazole 100 mg 07/16/19 09:00 07/17/19 09:00 Diflucan Tab PO 100 mg DAILY MARIO Administration Fluticasone Propio yogesh 1 spray 07/16/19 09:00 07/17/19 09:01 Flonase INTRANASAL 1 dose DAILY MARIO Administration Hydroxyzine Pamoat e 25 mg 07/16/19 15:01 Vistaril PO TID PRN ITCHING Lactulose 10 gm 07/15/19 19:00 07/17/19 09:01 Constulose PO Not Given BID MARIO Levothyroxine Sodi um 150 mcg 07/16/19 09:00 07/17/19 09:00 Synthroid PO 150 mcg DAILY MARIO Administration Levothyroxine Sodi um 25 mcg 07/16/19 09:00 07/17/19 09:00 Synthroid PO 25 mcg DAILY MARIO Administration Morphine Sulfate 2 mg 07/15/19 18:32 Morphine IVP Q4H PRN SEVERE PAIN Non-Formulary Medi cation 1 gm 07/15/19 18:32 07/17/19 09:01 Methenamine Sarah urate PO Not Given BID MARIO Nystatin 1 applic 07/15/19 19:00 07/17/19 09:01 Nystatin Powder TOPICAL 1 dose BID MARIO Administration Ondansetron HCl 4 mg 07/15/19 18:32 Zofran IVP Q6H PRN vomiting, or N/V if npo Potassium Chloride 20 meq 07/15/19 19:00 07/17/19 09:00 Klor-Con 10 PO 20 meq BID MARIO Administration Ropinirole HCl 2 mg 07/15/19 21:00 07/16/19 18:12 Requip PO 2 mg BEDTIME MARIO Administration Sertraline HCl 75 mg 07/16/19 09:00 07/17/19 09:00 Zoloft PO 75 mg DAILY MARIO Administration levofloxacin [From Levaquin] Allergy (Severe, Verified 05/17/19 15:07) ALGY-Swell Lip/Tongue/Throat Penicillins Allergy (Severe, Verified 05/17/19 15:07) ALGY-Swell Lip/Tongue/Throat Sulfa (Sulfonamide Antibiotics) Allergy (Severe, Verified 05/17/19 15:07) ALGY-Swell Lip/Tongue/Throat Vitals/I&O/Wt Last Vital Signs Temp 97.7 F 07/21/19 07:53 Pulse 86 07/21/19 08:38 Resp 18 07/21/19 08:32 BP 113/65 07/21/19 07:53 Pulse Ox 97 07/21/19 08:32 07/20/19 07/21/19 07/21/19 22:59 06:59 14:59 Intake Total 100 / 340 240 / 240 Output Total 2550 / 4600 950 / 5550 450 / 450 Balance -2550 / -4360 -850 / -5210 -210 / -210 Weight last 48 hrs Weight 117.055 kg Weight 117.055 kg Physical Exam Narrative: EXAM NARRATIVE: General: No acute distress, AO x3, Looking tired, On NC 3 L HEENT: PERRLA, pupils bilaterally equal and reactive Chest: Decreased air entry b/l, bilateral coarse crackles lower zone, bronchial breath sounds all over the lung louie CVS: S1-S2 regular, no murmurs, no tachycardia, no gallops, no rubs, JVD difficult to assess due to morbid obesity. Abdomen: Morbidly obese, soft, nontender, no organomegaly, bowel sounds present Neuro: No focal deficits, no facial deformity, AO x3, power 5/5 in all limbs Urinary Catheter Management^: Wilkins: Cath Placed During This Visit: yes Reason for Continuing Indwelling Catheter: Accurate Measurement of Urinary Output in Critically Ill Patients Urinary Catheter Date of Insertion: 07/19/19 Urinary Catheter Time of Insertion: 10:16 Data : 07/20/19 05:00 07/21/19 10:27 A&P Assessment and plan (1) Acute on chronic respiratory failure: Status: Acute Qualifiers: Respiratory failure complication: hypoxia and hypercapnia Qualified Code(s): J96.21 - Acute and chronic respiratory failure with hypoxia; J96.22 - Acute and chronic respiratory failure with hypercapnia (2) COPD (chronic obstructive pulmonary disease): Status: Acute (3) CHF (congestive heart failure): Status: Acute Qualifiers: Heart failure chronicity: acute on chronic Heart failure type: diastolic Qualified Code(s): I50.33 - Acute on chronic diastolic (congestive) heart failure (4) ALONZO (obstructive sleep apnea): -on Trilogy Status: Chronic (5) Normocytic hypochromic anemia: -noted acutely worsening chronic normocytic anemia -baseline Hg is 8-9, current Hg 8.2 -iron panel noted, wnl -continue to monitor H/H Status: Acute (6) Pemphigus vulgaris: -f/u at [facility] (Dr. 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 More than 2600 proBNP elevated on admission which is the highest it has been over last 1 year. Echo from 09/2018 limited study: EF 75%, no regional wall motion abnormality, PASP 36. Echocardiogram done in 2016 showed grade 2 diastolic dysfunction. Urine output as per chart is a lot better since patient has been catheterized. Overall around 6 L negative. Lasix 80 mg daily. We will stop metolazone now. LORNE Wilkins today. Xanax 0.5 mg p.o. 3 times daily as needed. Continue with DuoNeb 6 hourly and budesonide twice daily. Continue with prednisone 40 mg daily. Patient would most likely need a very slow taper as an outpatient. Oxygen supplementation keeping saturation over 90%. Continue with nasal cannula oxygen supplementation for now, transfer over to [facility] once patient is retired. Target saturation goal is 90%. We will try to avoid over oxygenation. Can use Xanax 0.25 mg every 8 hourly as needed. BiPAP ventilation as needed. Leukocytosis most likely because of steroids. Patient has no fevers and has remained hemodynamically stable. Pemphigus vulgaris with candidal intertigo: Finished 5-day Diflucan course. Clotrimazole/betamethasone ointment. CKD stage II: Creatinine mildly elevated to 1.3 today. Most likely because of aggressive diuresis which is important for her improvement respiratory status. Continue to monitor BMP daily. Medication reconciled for nephrotoxic drugs. Hypothyroidism: Continue with home dose of levothyroxine. History of rectovaginal fistula:Inoperable per surgery f/u with Dr. Mistry has had issues with perirectal abscesses that have required drainage, most recently one on the R drained in 03/2019 on exam, seems to have sinus tracts; no fluctuance appreciated keep area clean and dry, on bowel regimen. Continue chronic medications like alprazolam, Requip for anxiety and restless leg syndrome. Hypercalcemia; Review of old [employer] records shows prior SPEP done in 10/2017 showing monoclonal beta migrating paraprotein (IgA kappa) and UPEP showing mild paraproteinuria (no monoclonal protein detected). PTH levels and vitamin D levels low. PTH RP levels awaited. We will also check serum 1, 25 vitamin D levels. Repeat UPEP and SPEP. Had previously been seen by Heme/Onc -fall precautions -up with assist. PT/OT -DVT ppx : Lovenox 40 mg SQ daily. Check Hb daily. Protonix for PUD ppx -Dispo: return home, has HH services through [facility]. If continues to do well can plan for discharge in the next 2 days. -Code status: CODE STATUS changed to limited resuscitation to only chest compression. Son notified. Attestations Medical Necessity Statement*: Acute on chronic hypercapnic respiratory failure Time Spent in Patient Care: Greater than 35 minutes Coding Level of Care Code Acute Director Property for [employer] Fwd Diagnoses Acute on chronic respiratory failure J96.21; J96.22 Respiratory failure complication: hypoxia and hypercapnia COPD (chronic obstructive pulmonary disease) J44.9 CHF (congestive heart failure) I50.33 Heart failure chronicity: acute on chronic Heart failure type: diastolic ALONZO (obstructive sleep apnea) G47.33 Normocytic hypochromic anemia D50.9 Pemphigus vulgaris L10.0 Candidal intertrigo B37.2 CKD (chronic kidney disease) stage 2, GFR 60-89 ml/min N18.2 Hypothyroidism E03.9 Hypothyroidism type: unspecified Rectovaginal fistula N82.3 Anxiety and depression F41.9; F32.9 Restless leg syndrome G25.81 Morbid obesity E66.01
[2019-07-21 15:46] LABS: Thyroid Stimulating Hormone 0.21 uIU/mL (0.27-4.20)
[2019-07-21 15:57] LABS: Abnormal Protein Band 1 42 mg/dL (NONE DETECTED); Albumin,Urine Random 13 %; Alpha-1-Globulins Urine Random 2 %; Alpha-2-Globulins Urine Random 7 %; Beta-Globulin,Urine Random 75 %; Gamma Globulin,Urine Random 3 %
[2019-07-21] MEDS: ropinirole 2 mg Tablet 4 MG PO (17:45)
[2019-07-21] MEDS: enoxaparin 40 mg/0.4 mL Syringe SUBCUT (17:45)
[2019-07-22] VITALS (17 sets, daily range): BP systolic 96–136; BP diastolic 60–77; PULSE 75–97; RESP 13–28; TEMP 36.6–37.1; O2SAT 90–97; BMI 43.9
[2019-07-22] MEDS: ipratropium-albuterol 3 mL Neb INHALATION ×4 (02:01→20:22)
[2019-07-22 05:36] LABS: Basophils # 0.1 10^3/uL (0.0-0.1); Basophils % 0.3 %; Eosinophils # 0.1 10^3/uL (0.0-0.8); Eosinophils % 0.4 %; Hematocrit 29.3 % (37.0-47.0); Hemoglobin 8.4 g/dL (11.5-15.3); Lymphocytes # 2.8 10^3/uL (0.8-4.8); Mean Corpuscular HGB Conc 28.7 g/dL (30.0-36.0); Mean Corpuscular Hemoglobin 25.2 pg (28.0-34.0); Mean Platelet Volume 10.9 fL (7.4-10.4); Monocytes # 12.3 10^3/uL (0.2-0.9); Monocytes % 48.2 %; Neutrophils # 7.9 10^3/uL (1.8-7.7); Nucleated Red Blood Cells # 0.7 /100WBC; Nucleated Red Blood Cells % 2.7 %; Platelet Count 134 10^3/cmm (130-400); Red Blood Count 3.33 10^6/uL (4.1-5.3); White Blood Count 25.5 10^3/uL (4.0-10.0)
[2019-07-22 05:57] LABS: Alanine Aminotransferase 16 U/L (0-33); Albumin Level 3.8 g/dL (3.5-5.2); Alkaline Phosphatase 99 IU/L (35-105); Anion Gap 11.5 (5-19); Aspartate Amino Transferase 23 U/L (0-32); Blood Urea Nitrogen 49 mg/dL (8-23); Calcium 12.9 mg/dL (8.5-10.5); Chloride 92 mmol/L (98-107); Globulin 4.2 g/dL (1.3-4.6); Glucose 121 mg/dL (65-115); Osmolality Calculated 299 mOsm/kg (285-295); Potassium 3.5 mmol/L (3.5-5.1); Sodium 145 mmol/L (136-145); Total Bilirubin 0.2 mg/dL (0.15-1.2)
[2019-07-22 06:03] LABS: Carbon Dioxide 45 mmol/L (22-29)
[2019-07-22 06:19] LABS: Slide Review Slide Review Perform
[2019-07-22] MEDS: levothyroxine 150 mcg Tablet PO (08:11)
[2019-07-22] MEDS: sertraline 100 mg Tablet PO (08:11)
[2019-07-22] MEDS: predniSONE 20 mg Tablet 40 MG PO (08:11)
[2019-07-22] MEDS: pantoprazole DR 40 mg Tablet PO (08:11)
[2019-07-22] MEDS: ferrous sulfate EC 325 mg Tablet PO ×2 (08:12→17:09)
[2019-07-22] MEDS: levothyroxine 25 mcg Tablet PO (08:12)
[2019-07-22] MEDS: FUROsemide 40 mg Tablet 80 MG PO (08:12)
[2019-07-22] MEDS: fluticasone nasal spray 16gm Btl 1 SPRAY INTRANASAL (08:13)
[2019-07-22] MEDS: clotrimazole-betamethasone cream 15gm 1 APPLIC TOPICAL ×3 (08:15→22:50)
[2019-07-22] MEDS: nystatin powder 15 gm Btl 1 APPLIC TOPICAL ×2 (08:16→17:09)
[2019-07-22] MEDS: budesonide 0.5 mg/2 mL Neb INHALATION ×2 (08:20→20:21)
[2019-07-22 10:09] LABS: ABG PH Result 7.41 (7.35-7.45); Alveolar-Arterial Oxygen Gradi 81.1 mmHg (5-10); Arterial Blood Gas Hematocrit 28.3 % (37-47); Base Excess ABG 20.1 mmol/L (-2.0-2.0); Blood Gas Allen Test Pos; Blood Gas Sample Site Radial, left; Blood Gas Sample Type Arterial; Carboxyhemoglobin 0.9 %THgb (0.4-20.1); HCO3 ABG 47.6 mmol/L (22-26); HGB O2 Sat 87.5 % (95-100); Ionized Calcium Level - ABG 1.6 mmol/L (1.1-1.4); Oxygen Device NC; Oxygen Saturation ABG 89.2; PO2 ABG 56.4 mmHg (80.0-100.0); Potassium Level - ABG 3.8 mmol/L (3.5-5.0); Total Hemoglobin 9.2 g/dL (12-16)
[2019-07-22 12:07] LABS: Free T4 Free Thyroxine 1.51 ng/dL (0.82-1.77); T3 Free 1.9 PG/ML (2.0-4.4)
--- NOTE | 2019-07-22 12:17 | P.PN_ITS ---
Subjective Subjective: Interval history: No acute events overnight. On examination patient looks a little bit lethargic and out of breath so ABG was requested which shows mild hypercapnia so patient was put back on BiPAP. 30 minutes after being on BiPAP patient is a lot more awake. Patient denies of having any nausea, vomiting, headache, palpitations. Labs noted for CO2 on chemistry to be elevated today most likely because of contraction alkalosis. Unfortunately patient is already received Lasix for today. Received a call from pathology regarding concern of possible hairy cell leukemia on the peripheral smear flow cytometry has been requested. Vitals/I&O/Wt Last Vital Signs Temp 98.2 F 07/22/19 11:22 Pulse 75 07/22/19 11:22 Resp 18 07/22/19 11:22 BP 96/62 07/22/19 11:22 Pulse Ox 94 07/22/19 11:22 07/21/19 07/22/19 07/22/19 22:59 06:59 14:59 Intake Total 720 / 960 240 / 1200 Output Total 1400 / 1850 400 / 2250 Balance -680 / -890 -160 / -1050 Weight last 48 hrs Weight 112.945 kg Weight 117.055 kg Physical Exam Narrative: EXAM NARRATIVE: General: No acute distress, lethargic at first, came back to baseline of AO x3 after being on BiPAP for 30 minutes. HEENT: Neck PERRLA, pupils bilaterally equal and reactive Chest: Decreased air entry b/l, bilateral coarse crackles lower zone, bronchial breath sounds all over the lung louie CVS: S1-S2 regular, no murmurs, no tachycardia, no gallops, no rubs, JVD difficult to assess due to morbid obesity. Abdomen: Morbidly obese, soft, nontender, no organomegaly, bowel sounds present Neuro: No focal deficits, no facial deformity, AO x3, power 5/5 in all limbs Urinary Catheter Management^: Wilkins: Cath Placed During This Visit: yes Reason for Continuing Indwelling Catheter: Accurate Measurement of Urinary Output in Critically Ill Patients Urinary Catheter Date of Insertion: 07/19/19 Urinary Catheter Time of Insertion: 10:16 Data : 07/22/19 04:50 07/22/19 04:50 A&P Assessment and plan (1) Acute on chronic respiratory failure: Status: Acute Qualifiers: Respiratory failure complication: hypoxia and hypercapnia Qualified Code(s): J96.21 - Acute and chronic respiratory failure with hypoxia; J96.22 - Acute and chronic respiratory failure with hypercapnia (2) COPD (chronic obstructive pulmonary disease): Status: Acute (3) CHF (congestive heart failure): Status: Acute Qualifiers: Heart failure chronicity: acute on chronic Heart failure type: diastolic Qualified Code(s): I50.33 - Acute on chronic diastolic (congestive) heart failure (4) ALONZO (obstructive sleep apnea): -on Trilogy Status: Chronic (5) Normocytic hypochromic anemia: -noted acutely worsening chronic normocytic anemia -baseline Hg is 8-9, current Hg 8.2 -iron panel noted, wnl -continue to monitor H/H Status: Acute (6) 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 More than 2600 proBNP elevated on admission which is the highest it has been over last 1 year. Echo from 09/2018 limited study: EF 75%, no regional wall motion abnormality, PASP 36. Echocardiogram done in 2016 showed grade 2 diastolic dysfunction. Mildly worse today because of contraction alkalosis with retaining carbon dioxide. Placed back on BiPAP. Repeat ABG after 4 hours. If improving will give a trial of Trelegy again. Overall patient is 7.5 L negative since admission. Already received Lasix for today. We will hold further diuresis for now. Xanax 0.5 mg p.o. 3 times daily as needed. Continue with DuoNeb 6 hourly and budesonide twice daily. Continue with prednisone 40 mg daily. Patient would most likely need a very slow taper as an outpatient. Oxygen supplementation keeping saturation over 90%. Target saturation goal is 90%. We will try to avoid over oxygenation. BiPAP ventilation as needed. Leukocytosis: Most likely because of steroids. Patient has no fevers and has remained hemodynamically stable. Got a call from pathology today with concerns of possible hairy cell leukemia even though patient's age and sex is not reflective of that. We will check flow cytometry from peripheral smear. Pemphigus vulgaris with candidal intertigo: Finished 5-day Diflucan course. Clotrimazole/betamethasone ointment. CKD stage II: Stable for now. Due to agressive diuresis. Continue to monitor BMP daily. Medication reconciled for nephrotoxic drugs. Hypothyroidism: Continue with home dose of levothyroxine. History of rectovaginal fistula:Inoperable per surgery f/u with Dr. Mistry has had issues with perirectal abscesses that have required drainage, most recently one on the R drained in 03/2019 on exam, seems to have sinus tracts; no fluctuance appreciated keep area clean and dry, on bowel regimen. Continue chronic medications like alprazolam, Requip for anxiety and restless leg syndrome. Hypercalcemia; Review of old [employer] records shows prior SPEP done in 10/2017 showing monoclonal beta migrating paraprotein (IgA kappa) and UPEP showing mild paraproteinuria (no monoclonal protein detected). PTH levels and vitamin D levels low. PTH RP levels awaited. We will also check serum 1, 25 vitamin D levels. Repeat UPEP and SPEP. Had previously been seen by Heme/Onc -fall precautions -up with assist. PT/OT -DVT ppx : Lovenox 40 mg SQ daily. Check Hb daily. Protonix for PUD ppx -Dispo: return home, has HH services through [facility]. If continues to do well can plan for discharge in the next 2 days. -Code status: CODE STATUS changed to limited resuscitation to only chest compression. Son notified. Attestations Medical Necessity Statement*: Acute on chronic hypercapnic respiratory failure, contraction alkalosis, HUMPHREY Coding Level of Care Code Acute Manager Data for [facility] Fwd Diagnoses Acute on chronic respiratory failure J96.21; J96.22 Respiratory failure complication: hypoxia and hypercapnia COPD (chronic obstructive pulmonary disease) J44.9 CHF (congestive heart failure) I50.33 Heart failure chronicity: acute on chronic Heart failure type: diastolic ALONZO (obstructive sleep apnea) G47.33 Normocytic hypochromic anemia D50.9 Pemphigus vulgaris L10.0 Candidal intertrigo B37.2 CKD (chronic kidney disease) stage 2, GFR 60-89 ml/min N18.2 Hypothyroidism E03.9 Hypothyroidism type: unspecified Rectovaginal fistula N82.3 Anxiety and depression F41.9; F32.9 Restless leg syndrome G25.81 Morbid obesity E66.01
[2019-07-22 14:36] LABS: ABG PH Result 7.46 (7.35-7.45); Alveolar-Arterial Oxygen Gradi 127.6 mmHg (5-10); Arterial Blood Gas Hematocrit 27.5 % (37-47); Base Excess ABG 21.1 mmol/L (-2.0-2.0); Blood Gas Allen Test Pos; Blood Gas Sample Site Radial, left; Blood Gas Sample Type Arterial; Carboxyhemoglobin 0.5 %THgb (0.4-20.1); HCO3 ABG 47.7 mmol/L (22-26); HGB O2 Sat 95.9 % (95-100); Ionized Calcium Level - ABG 1.6 mmol/L (1.1-1.4); Oxygen Device BIPAP; Oxygen Saturation ABG 95.6; PO2 ABG 73.9 mmHg (80.0-100.0); Potassium Level - ABG 3.7 mmol/L (3.5-5.0)
[2019-07-22 14:42] LABS: ABG PCO2 66.9 mmHg (35-45)
[2019-07-22 14:42] LABS: ABG PCO2 74.8 mmHg (35-45)
[2019-07-22] MEDS: enoxaparin 40 mg/0.4 mL Syringe SUBCUT (17:09)
[2019-07-22] MEDS: ropinirole 2 mg Tablet 4 MG PO (17:09)
[2019-07-22] MEDS: ALPRAZolam 0.5 mg Tablet PO (21:14)
[2019-07-23] VITALS (14 sets, daily range): BP systolic 99–132; BP diastolic 60–73; PULSE 73–92; RESP 17–20; TEMP 36.7–37; O2SAT 93–98
[2019-07-23] MEDS: ipratropium-albuterol 3 mL Neb INHALATION ×3 (03:35→20:19)
[2019-07-23 06:43] LABS: Hematocrit 30.2 % (37.0-47.0); Hemoglobin 8.7 g/dL (11.5-15.3); Mean Corpuscular HGB Conc 28.8 g/dL (30.0-36.0); Mean Corpuscular Hemoglobin 25.2 pg (28.0-34.0); Mean Corpuscular Volume 87.5 fL (81-99); Mean Platelet Volume 10.6 fL (7.4-10.4); Nucleated Red Blood Cells # 0.7 /100WBC; Nucleated Red Blood Cells % 2.4 %; Platelet Count 139 10^3/cmm (130-400); Red Blood Count 3.45 10^6/uL (4.1-5.3)
[2019-07-23 07:01] LABS: Alanine Aminotransferase 17 U/L (0-33); Albumin Level 3.7 g/dL (3.5-5.2); Alkaline Phosphatase 99 IU/L (35-105); Anion Gap 11.8 (5-19); Aspartate Amino Transferase 27 U/L (0-32); Blood Urea Nitrogen 51 mg/dL (8-23); Calcium 13.5 mg/dL (8.5-10.5); Chloride 88 mmol/L (98-107); Globulin 4.4 g/dL (1.3-4.6); Glucose 143 mg/dL (65-115); Osmolality Calculated 297 mOsm/kg (285-295); Sodium 143 mmol/L (136-145); Total Bilirubin 0.2 mg/dL (0.15-1.2); Total Protein 8.1 g/dL (6.6-8.7)
[2019-07-23 07:14] LABS: Carbon Dioxide 46 mmol/L (22-29); Potassium 2.8 mmol/L (3.5-5.1)
[2019-07-23] MEDS: fluticasone nasal spray 16gm Btl 1 SPRAY INTRANASAL (07:55)
[2019-07-23] MEDS: levothyroxine 150 mcg Tablet PO (07:56)
[2019-07-23] MEDS: predniSONE 20 mg Tablet 40 MG PO (07:56)
[2019-07-23] MEDS: sertraline 100 mg Tablet PO (07:56)
[2019-07-23] MEDS: ferrous sulfate EC 325 mg Tablet PO ×2 (07:56→17:53)
[2019-07-23] MEDS: levothyroxine 25 mcg Tablet PO (07:56)
[2019-07-23] MEDS: pantoprazole DR 40 mg Tablet PO (07:56)
[2019-07-23] MEDS: clotrimazole-betamethasone cream 15gm 1 APPLIC TOPICAL ×3 (07:57→23:14)
[2019-07-23] MEDS: nystatin powder 15 gm Btl 1 APPLIC TOPICAL ×2 (07:58→17:54)
[2019-07-23 08:00] LABS: Slide Review Slide Review Perform
[2019-07-23 08:15] LABS: Absolute Segmented Neutrophil 8.4 10/cmm (1.6-7.1); Band Neutrophils Absolute 1.5 10^3/cmm (0.0-1.2); Basophils Absolute 2.7 10^3/cmm (0.0-0.2); Lymphocytes 46 %; Monocytes Absolute 1.2 10^3/cmm (0.1-0.6); Segmented Neutrophils 28 %; Total Cells Counted 100 (0-100)
[2019-07-23 08:17] LABS: Blastocytes 2 % (0-0)
[2019-07-23 08:18] LABS: White Blood Count 30.2 10^3/uL (4.0-10.0)
[2019-07-23 08:23] LABS: Anisocytosis 1+; Macrocytosis Trace; Platelet Estimate Normal (Normal)
[2019-07-23] MEDS: budesonide 0.5 mg/2 mL Neb INHALATION (08:37)
[2019-07-23] MEDS: sodium chlor 0.9% + KCl 20 mEq 20 MEQ/1,000 ML BAG 50 MEQ IV (11:30)
--- NOTE | 2019-07-23 11:35 | P.PN_ITS ---
Subjective Subjective: Interval history: No acute events overnight. Patient patient looking a lot better today. Maintaining saturation on 4 L nasal cannula. Patient was placed on 4 L Nasal cannula for most of the day yesterday and was transitioned over to BiPAP overnight. On examination denies of having any nausea, vomiting, headache, dizziness. Continues to remain tired. Is able to get up from bed to go to bedside commode on her own. Vitals/I&O/Wt Last Vital Signs Temp 98.3 F 07/23/19 11:07 Pulse 89 07/23/19 11:07 Resp 17 07/23/19 11:07 BP 112/70 07/23/19 11:07 Pulse Ox 93 07/23/19 11:07 07/22/19 07/23/19 07/23/19 22:59 06:59 14:59 Intake Total 240 / 800 480 / 480 Output Total 150 / 150 250 / 400 Balance 90 / 650 -250 / 400 480 / 480 Weight last 48 hrs Weight 110.024 kg Weight 108.862 kg Weight 112.945 kg Physical Exam Narrative: EXAM NARRATIVE: General: No acute distress, HEENT: Neck PERRLA, pupils bilaterally equal and reactive Chest: Decreased air entry b/l, bilateral coarse crackles lower zone, bronchial breath sounds all over the lung louie CVS: S1-S2 regular, no murmurs, no tachycardia, no gallops, no rubs, JVD difficult to assess due to morbid obesity. Abdomen: Morbidly obese, soft, nontender, no organomegaly, bowel sounds present Neuro: No focal deficits, no facial deformity, AO x3, power 5/5 in all limbs Urinary Catheter Management^: Wilkins: Cath Placed During This Visit: yes Reason for Continuing Indwelling Catheter: Accurate Measurement of Urinary Output in Critically Ill Patients Urinary Catheter Date of Insertion: 07/19/19 Urinary Catheter Time of Insertion: 10:16 Data : 07/23/19 06:12 07/23/19 06:12 A&P Assessment and plan (1) Acute on chronic respiratory failure: Status: Acute Qualifiers: Respiratory failure complication: hypoxia and hypercapnia Qualified Code(s): J96.21 - Acute and chronic respiratory failure with hypoxia; J96.22 - Acute and chronic respiratory failure with hypercapnia (2) COPD (chronic obstructive pulmonary disease): Status: Acute (3) CHF (congestive heart failure): Status: Acute Qualifiers: Heart failure chronicity: acute on chronic Heart failure type: diastolic Qualified Code(s): I50.33 - Acute on chronic diastolic (congestive) heart failure (4) ALONZO (obstructive sleep apnea): -on Trilogy Status: Chronic (5) Leukocytosis: Status: Acute (6) Normocytic hypochromic anemia: -noted acutely worsening chronic normocytic anemia -baseline Hg is 8-9, current Hg 8.2 -iron panel noted, wnl -continue to monitor H/H Status: Acute (7) CKD (chronic kidney disease) stage 2, GFR 60-89 ml/min: Status: Chronic (8) Hypothyroidism: Status: Chronic Qualifiers: Hypothyroidism type: unspecified Qualified Code(s): E03.9 - Hypothyroidism, unspecified (9) Rectovaginal fistula: Status: Chronic (10) Anxiety and depression: Status: Chronic (11) Restless leg syndrome: Status: Chronic (12) Morbid obesity: -BMI-46 kg/m2 Status: Chronic (13) Pemphigus vulgaris: -f/u at [facility] (Dr. Chakraborty) Status: Chronic (14) Candidal intertrigo: Status: Acute (15) Alkalosis, metabolic: Status: Acute Additional A&P Information Acute and chronic hypoxic and hypercapnic respiratory failure: Most likely a combination of CHF, severe COPD, severe obstructive sleep apnea. More than 2600 proBNP elevated on admission which is the highest it has been over last 1 year. Echo from 09/2018 limited study: EF 75%, no regional wall motion abnormality, PA SP 36. Echocardiogram done in 2016 showed grade 2 diastolic dysfunction. Respiratory status continues complicated because of metabolic alkalosis: Most likely because of over compensation from aggressive diuresis. 6.5 L negative since admission. Holding off on further diuresis for today. Will start on very gentle hydration with normal saline at 20 mEq potassium at 50 cc an hour. Will monitor for fluid overload. Xanax 0.5 mg p.o. 3 times daily as needed. Continue with DuoNeb 6 hourly and budesonide twice daily. Continue with prednisone 40 mg daily. Patient would most likely need a very slo w taper as an outpatient. Oxygen supplementation keeping saturation over 90%. Target saturation goal is 90%. We will try to avoid over oxygenation. BiPAP ventilation as needed. Leukocytosis: Differential consistent with 6% atypical lymphocytes with 2% bands. 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 Flow cytometry sent yesterday. Being on steroids is also playing a part. Pemphigus vulgaris with candidal intertigo: Finished 5-day Diflucan course. Clotrimazole/betamethasone ointment. CKD stage II: Trending down. 1.2 today. Due to agressive diuresis. Continue to monitor BMP daily. Medication reconciled for nephrotoxic drugs. Contraction alkalosis as discussed above started on slow fluids today. Hypokalemia: Replaced by 60 mEq oral potassium and 20 mEq through IV fluids. Hypothyroidism: Continue with home dose of levothyroxine. History of rectovaginal fistula:Inoperable per surgery f/u with Dr. Mistry has had issues with perirectal abscesses that have required drainage, most recently one on the R drained in 03/2019 on exam, seems to have sinus tracts; no fluctuance appreciated keep area clean and dry, on bowel regimen. Continue chronic medications like alprazolam, Requip for anxiety and restless leg syndrome. Hypercalcemia: Can be because of possible leukemia. Review of old [facility] records shows prior SPEP done in 10/2017 showing monoclonal beta migrating paraprotein (IgA kappa) and UPEP showing mild paraproteinuria (no monoclonal protein detected). PTH levels and vitamin D levels low. PTH RP levels awaited. We will also check serum 1, 25 vitamin D levels. Consistent with monoclonal band in beta globulin region. -fall precautions -up with assist. PT/OT DVT ppx : Lovenox 40 mg SQ daily. Check Hb daily. Protonix for PUD ppx -Dispo: return home, has HH services through [facility]. If continues to do well can plan for discharge in the next 2 days. -Code status: CODE STATUS changed to limited resuscitation to only chest compression. Son notified. 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 Diagnoses Acute on chronic respiratory failure J96.21; J96.22 Respiratory failure complication: hypoxia and hypercapnia COPD (chronic obstructive pulmonary disease) J44.9 CHF (congestive heart failure) I50.33 Heart failure chronicity: acute on chronic Heart failure type: diastolic ALONZO (obstructive sleep apnea) G47.33 Leukocytosis D72.829 Normocytic hypochromic anemia D50.9 CKD (chronic kidney disease) stage 2, GFR 60-89 ml/min N18.2 Hypothyroidism E03.9 Hypothyroidism type: unspecified Rectovaginal fistula N82.3 Anxiety and depression F41.9; F32.9 Restless leg syndrome G25.81 Morbid obesity E66.01 Pemphigus vulgaris L10.0 Candidal intertrigo B37.2 Alkalosis, metabolic E87.3
[2019-07-23] MEDS: ALPRAZolam 0.5 mg Tablet PO (13:35)
[2019-07-23] MEDS: hyDROXYzine 25 mg Capsule PO (13:35)
[2019-07-23] MEDS: ropinirole 2 mg Tablet 4 MG PO (17:53)
[2019-07-23] MEDS: enoxaparin 40 mg/0.4 mL Syringe SUBCUT (17:53)
[2019-07-23 23:11] LABS: Vit D 1,25 (Oh)2, Total 14 pg/mL (18-72); Vit D2 1,25 (Oh)2 <8 pg/mL; Vit D3 1,25 (Oh)2 14 pg/mL
[2019-07-24] VITALS (15 sets, daily range): BP systolic 96–130; BP diastolic 58–72; PULSE 70–113; RESP 18–24; TEMP 36.4–36.9; O2SAT 89–99; BMI 44.4
[2019-07-24] MEDS: ipratropium-albuterol 3 mL Neb INHALATION ×4 (02:17→20:53)
[2019-07-24] MEDS: budesonide 0.5 mg/2 mL Neb INHALATION ×3 (02:17→20:53)
[2019-07-24] MEDS: sodium chlor 0.9% + KCl 20 mEq 20 MEQ/1,000 ML BAG 50 MEQ IV (06:37)
[2019-07-24] MEDS: pantoprazole DR 40 mg Tablet PO (09:34)
[2019-07-24] MEDS: sertraline 100 mg Tablet PO (09:34)
[2019-07-24] MEDS: levothyroxine 150 mcg Tablet PO (09:34)
[2019-07-24] MEDS: levothyroxine 25 mcg Tablet PO (09:34)
[2019-07-24] MEDS: fluticasone nasal spray 16gm Btl 1 SPRAY INTRANASAL (09:35)
[2019-07-24] MEDS: predniSONE 20 mg Tablet 40 MG PO (09:35)
[2019-07-24] MEDS: ferrous sulfate EC 325 mg Tablet PO ×2 (09:35→17:31)
--- NOTE | 2019-07-24 09:50 | PC.SOCIAL ---
IMM Updated Page 2 of IMM updated and given to patient. Initialed, dated, and timed and placed in chart.
[2019-07-24] MEDS: clotrimazole-betamethasone cream 15gm 1 APPLIC TOPICAL ×3 (10:06→21:08)
--- NOTE | 2019-07-24 13:05 | PC.NURSE ---
Spoke with Pt's daughter, relayed that Doctor was keeping Pt another day to monitor her, Pt's daughter verbalized understanding.
--- NOTE | 2019-07-24 14:47 | P.PN_ITS ---
Subjective Subjective: Interval history: No acute events overnight. On examination lying comfortably in bed on 4 L nasal cannula. Complaining of constipation. Denies of having any nausea, vomiting, abdominal pain, headache. Overnight had remained on trilogy. Vitals/I&O/Wt Last Vital Signs Temp 98.4 F 07/24/19 11:23 Pulse 78 07/24/19 11:23 Resp 18 07/24/19 11:23 BP 130/72 07/24/19 11:23 Pulse Ox 93 07/24/19 11:23 07/23/19 07/24/19 07/24/19 22:59 06:59 14:59 Intake Total 480 / 1320 955.833 / 2275.833 840 / 840 Output Total 120 / 520 350 / 350 Balance 480 / 920 835.833 / 1755.833 490 / 490 Weight last 48 hrs Weight 110.024 kg Weight 110.024 kg Physical Exam Narrative: EXAM NARRATIVE: General: No acute distress, HEENT: Neck PERRLA, pupils bilaterally equal and reactive Chest: Decreased air entry b/l, bilateral coarse crackles lower zone, bronchial breath sounds all over the lung louie CVS: S1-S2 regular, no murmurs, no tachycardia, no gallops, no rubs, JVD difficult to assess due to morbid obesity. Abdomen: Morbidly obese, soft, nontender, no organomegaly, bowel sounds present Neuro: No focal deficits, no facial deformity, AO x3, power 5/5 in all limbs Urinary Catheter Management^: Wilkins: Cath Placed During This Visit: yes Reason for Continuing Indwelling Catheter: Accurate Measurement of Urinary Output in Critically Ill Patients Urinary Catheter Date of Insertion: 07/19/19 Urinary Catheter Time of Insertion: 10:16 Data : 07/25/19 06:13 07/25/19 06:13 A&P Assessment and plan (1) Acute on chronic respiratory failure: Status: Acute Qualifiers: Respiratory failure complication: hypoxia and hypercapnia Qualified Code(s): J96.21 - Acute and chronic respiratory failure with hypoxia; J96.22 - Acute and chronic respiratory failure with hypercapnia (2) COPD (chronic obstructive pulmonary disease): Status: Acute (3) CHF (congestive heart failure): Status: Acute Qualifiers: Heart failure chronicity: acute on chronic Heart failure type: diastolic Qualified Code(s): I50.33 - Acute on chronic diastolic (congestive) heart failure (4) ALONZO (obstructive sleep apnea): -on Trilogy Status: Chronic (5) Leukocytosis: Status: Acute (6) Normocytic hypochromic anemia: -noted acutely worsening chronic normocytic anemia -baseline Hg is 8-9, current Hg 8.2 -iron panel noted, wnl -continue to monitor H/H Status: Acute (7) CKD (chronic kidney disease) stage 2, GFR 60-89 ml/min: Status: Chronic (8) Hypothyroidism: Status: Chronic Qualifiers: Hypothyroidism type: unspecified Qualified Code(s): E03.9 - Hypothyroidism, unspecified (9) Rectovaginal fistula: Status: Chronic (10) Anxiety and depression: Status: Chronic (11) Restless leg syndrome: Status: Chronic (12) Morbid obesity: -BMI-46 kg/m2 Status: Chronic (13) Pemphigus vulgaris: -f/u at [facility] (Dr. Chakraborty) Status: Chronic (14) Candidal intertrigo: Status: Acute (15) Alkalosis, metabolic: Status: Acute Additional A&P Information Acute and chronic hypoxic and hypercapnic respiratory failure: Most likely a combination of CHF, severe COPD, severe obstructive sleep apnea. More than 2600 proBNP elevated on admission which is the highest it has been over last 1 year. Echo from 09/2018 limited study: EF 75%, no regional wall motion abnormality, PASP 36. Echocardiogram done in 2016 showed grade 2 diastolic dysfunction. Most likely patient at her baseline now. Overall 4.6 L negative. We will start diuresis again from tomorrow with Lasix at 80 mg daily. Patient seems to be diuresing better with Lasix Alfredo home dose of Bumex. Stop IV fluids. Euvolemic now. Xanax 0.5 mg p.o. 3 times daily as needed. Continue with DuoNeb 6 hourly and budesonide twice daily. We will start tapering prednisone from tomorrow. 30 mg for next 5 days from tomorrow. Oxygen supplementation keeping saturation over 90%. Target saturation goal is 90%. We will try to avoid over oxygenation. BiPAP ventilation as needed. Leukocytosis: Differential consistent with 6% atypical lymphocytes with 2% bands. 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 Flow cytometry sent yesterday. As per lab can take up to 5 to 6 days for results to come back. Being on steroids is also playing a part. CKD stage II: Trending down. 1.2 today. Due to agressive diuresis. Continue to monitor BMP daily. Medication reconciled for nephrotoxic drugs. Contraction alkalosis: Because of combination of aggressive diuresis and severe COPD. Patient has been on fluid since yesterday and diuresis have been withheld for last 2 days. Patient is euvolemic today. CMP results awaited for now. As discussed above stopping fluids now. Patient most likely can start diuretics from tomorrow. Will decide as per the CMP results. Hypokalemia: Continue potassium 20 mEq twice daily. Hypercalcemia: Can be because of possible leukemia. Review of old [employer] records shows prior SPEP done in 10/2017 showing monoclonal beta migrating paraprotein (IgA kappa) and UPEP showing mild paraproteinuria (no monoclonal protein detected). PTH levels and vitamin D levels low. PTH RP levels awaited. We will also check serum 1, 25 vitamin D levels. Consistent with monoclonal band in beta globulin region. Pemphigus vulgaris with candidal intertigo: Finished 5-day Diflucan course. Clotrimazole/betamethasone ointment. Hypothyroidism: Continue with home dose of levothyroxine. History of rectovaginal fistula:Inoperable per surgery f/u with Dr. Mistry has had issues with perirectal abscesses that have required drainage, most recently one on the R drained in 03/2019 on exam, seems to have sinus tracts; no fluctuance appreciated keep area clean and dry, on bowel regimen. Continue chronic medications like alprazolam, Requip for anxiety and restless leg syndrome. -fall precautions -up with assist. PT/OT DVT ppx : Lovenox 40 mg SQ daily. Check Hb daily. Protonix for PUD ppx Dispo: return home, has HH services through [facility]. If continues to do the same we can plan to discharge tomorrow. Code status: CODE STATUS changed to limited resuscitation to only chest compression. Son notified. Attestations Medical Necessity Statement*: Acute on chronic hypoxic and hypercapnic respiratory failure. Time Spent in Patient Care: 16 - 35 minutes (>than 50% of time spent in cou nselling and/or direct pt care on unit) . 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 Diagnoses Acute on chronic respiratory failure J96.21; J96.22 Respiratory failure complication: hypoxia and hypercapnia COPD (chronic obstructive pulmonary disease) J44.9 CHF (congestive heart failure) I50.33 Heart failure chronicity: acute on chronic Heart failure type: diastolic ALONZO (obstructive sleep apnea) G47.33 Leukocytosis D72.829 Normocytic hypochromic anemia D50.9 CKD (chronic kidney disease) stage 2, GFR 60-89 ml/min N18.2 Hypothyroidism E03.9 Hypothyroidism type: unspecified Rectovaginal fistula N82.3 Anxiety and depression F41.9; F32.9 Restless leg syndrome G25.81 Morbid obesity E66.01 Pemphigus vulgaris L10.0 Candidal intertrigo B37.2 Alkalosis, metabolic E87.3
[2019-07-24] MEDS: acetaminophen 325 mg Tablet 650 MG PO (15:17)
[2019-07-24] MEDS: lactulose oral liq 20 gm/30 mL UDC 10 GM PO (15:40)
--- NOTE | 2019-07-24 15:41 | ECG_ITS ---
Measurements Intervals [place] Rate: 94 P: 51 AK: 160 QRS: 26 QRSD: 98 T: 25 QT: 317 QTc: 397 SINUS RHYTHM Compared to ECG 07/15/2019 21:18:39 No significant changes Electronically Signed On 07-25-2019 18:15:26 CDT by Treva Huitron M.D. [email or web address]
[2019-07-24 15:43] LABS: Alanine Aminotransferase 20 U/L (0-33); Albumin Level 3.6 g/dL (3.5-5.2); Alkaline Phosphatase 94 IU/L (35-105); Anion Gap 12.2 (5-19); Aspartate Amino Transferase 27 U/L (0-32); Blood Urea Nitrogen 38 mg/dL (8-23); Chloride 94 mmol/L (98-107); Globulin 3.8 g/dL (1.3-4.6); Glucose 220 mg/dL (65-115); Osmolality Calculated 300 mOsm/kg (285-295); Potassium 4.2 mmol/L (3.5-5.1); Sodium 143 mmol/L (136-145); Total Bilirubin 0.2 mg/dL (0.15-1.2); Total Protein 7.4 g/dL (6.6-8.7)
[2019-07-24 15:51] LABS: Carbon Dioxide 41 mmol/L (22-29)
[2019-07-24] MEDS: enoxaparin 40 mg/0.4 mL Syringe SUBCUT (17:29)
[2019-07-24 17:30] LABS: Glucose Point of Care 246 mg/dL (70-110)
[2019-07-24] MEDS: ropinirole 2 mg Tablet 4 MG PO (17:30)
[2019-07-24] MEDS: dilTIAZem 30 mg Tablet PO ×2 (17:30→21:06)
[2019-07-24] MEDS: nystatin powder 15 gm Btl 1 APPLIC TOPICAL (17:34)
[2019-07-24 21:03] LABS: Glucose Point of Care 190 mg/dL (70-110)
[2019-07-24] MEDS: ALPRAZolam 0.5 mg Tablet PO (23:18)
[2019-07-25] VITALS (9 sets, daily range): BP systolic 90–137; BP diastolic 60–80; PULSE 76–96; RESP 16–20; TEMP 36.4–36.8; O2SAT 91–96
[2019-07-25] MEDS: ipratropium-albuterol 3 mL Neb INHALATION ×2 (02:25→08:32)
[2019-07-25] MEDS: sodium chlor 0.9% + KCl 20 mEq 20 MEQ/1,000 ML BAG 50 MEQ IV (05:34)
[2019-07-25 06:27] LABS: Hematocrit 29.2 % (37.0-47.0); Hemoglobin 8.5 g/dL (11.5-15.3); Mean Corpuscular HGB Conc 29.1 g/dL (30.0-36.0); Mean Corpuscular Hemoglobin 25.9 pg (28.0-34.0); Mean Platelet Volume 10.7 fL (7.4-10.4); Nucleated Red Blood Cells # 0.6 /100WBC; Nucleated Red Blood Cells % 1.9 %; Platelet Count 120 10^3/cmm (130-400); Red Blood Count 3.28 10^6/uL (4.1-5.3); Red Cell Distribution Width 18.7 % (12.1-15.1)
[2019-07-25 06:42] LABS: Alanine Aminotransferase 18 U/L (0-33); Albumin Level 3.4 g/dL (3.5-5.2); Alkaline Phosphatase 89 IU/L (35-105); Anion Gap 13.1 (5-19); Aspartate Amino Transferase 27 U/L (0-32); Blood Urea Nitrogen 34 mg/dL (8-23); Carbon Dioxide 39 mmol/L (22-29); Chloride 96 mmol/L (98-107); Globulin 3.7 g/dL (1.3-4.6); Glucose 115 mg/dL (65-115); Osmolality Calculated 296 mOsm/kg (285-295); Potassium 4.1 mmol/L (3.5-5.1); Sodium 144 mmol/L (136-145); Total Bilirubin 0.3 mg/dL (0.15-1.2); Total Protein 7.1 g/dL (6.6-8.7)
[2019-07-25 06:43] LABS: Glucose Point of Care 107 mg/dL (70-110)
[2019-07-25 07:06] LABS: Slide Review Slide Review Perform
[2019-07-25 07:08] LABS: White Blood Count 31.2 10^3/uL (4.0-10.0)
[2019-07-25 07:13] LABS: Absolute Segmented Neutrophil 5.9 10/cmm (1.6-7.1); Anisocytosis 1+; Band Neutrophils Absolute 3.1 10^3/cmm (0.0-1.2); Lymphocytes 62 %; Microcytosis Trace; Monocytes Absolute 0.9 10^3/cmm (0.1-0.6); Platelet Estimate Decreased (Normal); Segmented Neutrophils 19 %; Total Cells Counted 100 (0-100)
[2019-07-25] MEDS: ferrous sulfate EC 325 mg Tablet PO (07:40)
[2019-07-25] MEDS: ALPRAZolam 0.5 mg Tablet PO (07:40)
[2019-07-25] MEDS: HYDROcodone-acetaminophen 5-325 mg Tablet 1 TAB PO (07:41)
[2019-07-25] MEDS: pantoprazole DR 40 mg Tablet PO (08:32)
[2019-07-25] MEDS: budesonide 0.5 mg/2 mL Neb INHALATION (08:32)
[2019-07-25] MEDS: sertraline 100 mg Tablet PO (08:32)
[2019-07-25] MEDS: clotrimazole-betamethasone cream 15gm 1 APPLIC TOPICAL (08:32)
[2019-07-25] MEDS: levothyroxine 150 mcg Tablet PO (08:33)
[2019-07-25] MEDS: levothyroxine 25 mcg Tablet PO (08:33)
[2019-07-25] MEDS: dilTIAZem 30 mg Tablet PO (08:33)
[2019-07-25] MEDS: fluticasone nasal spray 16gm Btl 1 SPRAY INTRANASAL (08:34)
[2019-07-25] MEDS: nystatin powder 15 gm Btl 1 APPLIC TOPICAL (08:35)
[2019-07-25] MEDS: predniSONE 10 mg Tablet 30 MG PO (08:36)
[2019-07-25] MEDS: FUROsemide 40 mg Tablet 80 MG PO (10:12)
--- NOTE | 2019-07-25 11:20 | P.DS_ITS ---
Discharge Providers Date of Admission: 07/15/19 16:36 Date of Discharge: July 25, 2019 Attending Provider at Admission: Lurdes Carty MD Attending Provider at Discharge: Lavell Franklin MD Primary Care Provider: Jerardo Parks DO Diagnoses at Discharge Discharge Diagnosis (1) Acute on chronic respiratory failure: Status: Acute Qualifiers: Respiratory failure complication: hypoxia and hypercapnia Qualified Code(s): J96.21 - Acute and chronic respiratory failure with hypoxia; J96.22 - Acute and chronic respiratory failure with hypercapnia (2) COPD (chronic obstructive pulmonary disease): Status: Acute Problem details: Trilogy dependent (Ellipta) (3) CHF (congestive heart failure): Status: Acute Problem details: chronic diastolic, EF 75% and PASP 36 on last echo from September 2018. Qualifiers: Heart failure chronicity: acute on chronic Heart failure type: diastolic Qualified Code(s): I50.33 - Acute on chronic diastolic (congestive) heart failure (4) ALONZO (obstructive sleep apnea): Status: Chronic (5) Leukocytosis: Status: Acute (6) Normocytic hypochromic anemia: Status: Acute (7) CKD (chronic kidney disease) stage 2, GFR 60-89 ml/min: Status: Chronic (8) Hypothyroidism: Status: Chronic Qualifiers: Hypothyroidism type: unspecified Qualified Code(s): E03.9 - Hypothyroidism, unspecified (9) Rectovaginal fistula: Status: Chronic (10) Anxiety and depression: Status: Chronic (11) Restless leg syndrome: Status: Chronic (12) Morbid obesity: Status: Chronic (13) Pemphigus vulgaris: Status: Chronic (14) Candidal intertrigo: Status: Acute (15) Alkalosis, metabolic: Status: Acute Reason for Visit Reason for Visit: Reason For Visit: CHF EXACERBATION Hospital Course Discharge Summary: Aurelia Cruz is a 78 year old female with extensive PMHx including 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 She was last admitted at our facility in 12/2018. Patient is currently on BiPAP during my assessment in the ER so history taking is a little limited. Collateral information obtained from ER staff, review of medical record, family. Patient states that she has been compliant with trilogy and despite using it has continued to be short of breath. She is not sure if she has had lower extremity swelling but states that her legs do not feel right. She is unable to tell if she has had additional swelling elsewhere including her abdominal area. She is quite concerned about possible perirectal abscess which she has dealt with in the past due to noted drainage and bleeding whenever she awakens in the morning. She did have a right perirectal abscess incised and drained in March by Dr. 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 Unfortunately patient also has a history of pemphigus and intermittently has worsening lesions with blistering, she follows up with a specialist at [facility] and daughter Rafaela whom I spoke to on the phone states that recently patient has had increased redness and blistering which have caused some distress for the patient. Patient's daughter is one of her primary caregivers and patient does have home health services through [facility] home health agency. Patient was admitted to the floor for treatment of acute on chronic hypoxic and hypercapnic respiratory failure due to CHF and COPD exacerbation. She was treated with IV diuretics, steroids and nebulization. At start for first 48 hours patient was BiPAP dependent but had a very gradual slow improvement and is back to her baseline which is being on 4 to 5 L of nasal cannula while awake and trilogy machine while sleeping. Patient worked well with physical therapy and was able to ambulate from bed to chair on her own but was very lethargic. 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 Flow cytometry was sent and is awaited. Given the multiple comorbidities including severe COPD, severe obstructive sleep apnea and congestive heart failure requiring multiple admissions with history of rectovaginal fistula which has been deemed inoperable and new possible leukemia goals of care discussion were done with the patient and her son Mr. Erazo. Patient stated she is very tired of fighting it all and would now want to be DNR/DNI and the CODE STATUS was changed accordingly. Hospice care was also discussed with son. Son stated that he had discussion with hospice before but was unhappy with the services because they were limiting his decision making regarding patient's follow-up with primary care providers. For hypercalcemia patient was started on alendronate which he supposed to take once weekly and follow-up as an outpatient for repeat calcium levels. Patient's hospital stay details along with new diagnosis of possible leukemia and severe hypercalcemia were conveyed and discussed with patient's primary care provider Dr. Parks. He agreed to follow-up with patient early this week for possible transition to hospice. Given multiple comorbidities patient is high risk of repeated admission along with has a severely guarded prognosis. Given the new baseline all the details were discussed with son and he verbalized understanding of the same. He stated he would want Ms. Moses to come home at least once. Physical Exam Narrative: EXAM NARRATIVE: General: No acute distress, HEENT: Neck PERRLA, pupils bilaterally equal and reactive Chest: Decreased air entry b/l, bilateral coarse crackles lower zone, bronchial breath sounds all over the lung louie CVS: S1-S2 regular, no murmurs, no tachycardia, no gallops, no rubs, JVD difficult to assess due to morbid obesity. Abdomen: Morbidly obese, soft, nontender, no organomegaly, bowel sounds present Neuro: No focal deficits, no facial deformity, AO x3, power 5/5 in all limbs Urinary Catheter Management^: Wilkins: Cath Placed During This Visit: yes Reason for Continuing Indwelling Catheter: Accurate Measurement of Urinary Output in Critically Ill Patients Urinary Catheter Date of Insertion: 07/19/19 Urinary Catheter Time of Insertion: 10:16 Discharge Data Data Completed and Pending: Completed Studies During Hospitalization Category Date Time Status CT angio chest PE protcl [id number] Rout ine Cat Scan 07/18/19 12:12 Completed XR chest 1V day ble [id number] Stat Exams 07/15/19 14:15 Completed Pending at discharge Category Date Time Status Immunofixation Se rum Routine Lab 07/17/19 05:03 Received Miscellaneous Re t Routine Lab 07/22/19 04:50 Received PTH Related Pepti de (Protein) Routi ne Lab 07/17/19 09:37 Received Total Protein Mary ctrophoresis Routi ne Lab 07/17/19 09:37 Received Labs from last 24 hours 07/25/19 07/25/19 07/25/19 06:36 06:13 06:13 WBC 31.2 H* RBC 3.28 L Hgb 8.5 L Hct 29.2 L MCV 89.0 MCH 25.9 L MCHC 29.1 L RDW 18.7 H Plt Count 120 L MPV 10.7 H Nucleated RBC % (a uto) 1.9 Total Counted 100 Segmented Neutroph ils 19 Band Neutrophils 10.0 Lymphocytes (Manua l) 62 Monocytes (Manual) 3.0 Absolute Monocytes 0.9 H Metamyelocytes 4.0 Myelocytes 1.0 Promyelocytes 1.0 Nucleated RBCs 1.0 Nucleated RBCs # 0.6 Platelet Estimate Decreased L Anisocytosis 1+ H Microcytosis Trace Sodium 144 Potassium 4.1 Chloride 96 L Carbon Dioxide 39 H Anion Gap 13.1 BUN 34 H Creatinine 0.9 Glucose 115 POC Glucose 107 Calculated Osmolal ity 296 H Calcium 14.0 H* Total Bilirubin 0.3 AST 27 ALT 18 Alkaline Phosphata se 89 Total Protein 7.1 Albumin 3.4 L Globulin 3.7 07/24/19 07/24/19 07/24/19 19:29 17:27 15:13 WBC RBC Hgb Hct MCV MCH MCHC RDW Plt Count MPV Nucleated RBC % (a uto) Total Counted Segmented Neutroph ils Band Neutrophils Lymphocytes (Manua l) Monocytes (Manual) Absolute Monocytes Metamyelocytes Myelocytes Promyelocytes Nucleated RBCs Nucleated RBCs # Platelet Estimate Anisocytosis Microcytosis Sodium 143 Potassium 4.2 Chloride 94 L Carbon Dioxide 41 H Anion Gap 12.2 BUN 38 H Creatinine 1.0 H Glucose 220 H POC Glucose 190 246 Calculated Osmolal ity 300 H Calcium 13.0 H Total Bilirubin 0.2 AST 27 ALT 20 Alkaline Phosphata se 94 Total Protein 7.4 Albumin 3.6 Globulin 3.8 Vitals: Last Vital Signs Temp 97.5 F L 07/25/19 07:42 Pulse 88 07/25/19 08:43 Resp 16 07/25/19 08:33 BP 137/80 07/25/19 07:42 Pulse Ox 96 07/25/19 08:33 Discharge Plan Discharge Patient Disposition: Home Health Service Condition: Stable Prescriptions: New Spiriva with HandiHaler 18 mcg capsule, w/inhalation device 1 cap INHALATION DAILY Qty: 90 RF: 0 Advair Diskus 500-50 mcg/dose blister with device 1 inh INHALATION Q12H Qty: 60 RF: 0 furosemide 40 mg Tablet 80 mg PO DAILY Qty: 30 RF: 0 clotrimazole-betamethasone 1-0.05 % Cream 1 applic topical TID Qty: 50 RF: 0 Cardizem CD 120 mg capsule,extended release 24hr 120 mg PO DAILY Qty: 30 RF: 0 prednisone 10 mg tablet See Rx Instructions .ROUTE .COMPLEX Qty: 55 RF: 0 alendronate 70 mg tablet 70 mg PO .Weekly 42 Days Qty: 6 RF: 0 Continued triamcinolone acetonide 0.1 % cream 1 applic TOPICAL BID PRN (Reason: unknown) RF: 0 levothyroxine 175 mcg capsule 175 mcg PO DAILY RF: 0 albuterol sulfate [ProAir HFA] 90 mcg/actuation HFA aerosol inhaler 2 puff INHALATION Q6H PRN (Reason: Allergy Symptoms) RF: 0 sertraline [Zoloft] 50 mg tablet 75 mg PO DAILY RF: 0 lactulose 10 gram/15 mL (15 mL) solution 10 gm PO BID 30 Days Qty: 1440 RF: 2 methenamine hippurate 1 gram tablet 1 g PO BID RF: 0 acitretin 25 mg capsule 25 mg PO DAILY RF: 0 ropinirole 2 mg tablet 2 - 4 mg PO BEDTIME RF: 0 iron 325 mg (65 mg iron) Tablet 325 mg PO BID RF: 0 Flonase Allergy Relief 50 mcg/actuation [place],Suspension 1 spray INTRANASAL DAILY RF: 0 [place] 1 tab PO BID RF: 0 cyanocobalamin (vitamin B-12) See Rx Instructions .ROUTE .COMPLEX RF: 0 [place] 5-325 mg tablet 1 tab PO Q8H PRN (Reason: pain) RF: 0 alprazolam 0.5 mg tablet 0.5 mg PO TID PRN (Reason: Anxiety) RF: 0 potassium chloride 20 mEq tablet,ER particles/crystals 20 meq PO BID RF: 0 Discontinued bumetanide 1 mg tablet See Rx Instructions .ROUTE .COMPLEX RF: 0 Discharge Orders: Discharge Order (Routine); Ordered 07/25/19 Ordered By: Lavell Franklin Referrals: Jerardo Parks, [Primary Care Provider] - 4-7 days (You have a hospital follow up with Dr. Parks at [facility] on this coming July 26 at 10:00am. They will also do the following bloodwork:Repeat CMP and calcium) Discharge Diet: Advance as tolerated Discharge Activity: Increase activity as tolerated Patient Instructions: Clotrimazole (Vaginal), Diltiazem (By mouth), Furosemide (By mouth), Prednisone (By mouth), Alendronate (By mouth), Fluticasone (By breathing), Tiotropium (By breathing), Heart Failure (DC), CHF Stoplight Activity Restrictions/Additional Instructions: Please repeat CMP and calcium within 1 week. Please follow-up with your primary care physician within 1 week. Discharge Attestations Time Spent in Discharge Care*: greater than 30 min Specific Discharge Activities: Specific discharge activities: educating patient, educating and/or supporting family/caregiver, discussing with director of casework/social workers/dc planners, documenting/other paperwork and evaluating patient/reviewing data Status at Discharge: Cognitive status at discharge: cognitively intact , Behavioral status at discharge: cooperative , Functional status at discharge: wheelchair bound Overall status at discharge: patient is back to baseline Quality Metrics Clinical Quality Measures During this hospital stay, did patient experience: None Coding Level of Care Code Acute Sole Edge Inker Machine for Chg Fwd Diagnoses Acute on chronic respiratory failure J96.21; J96.22 Respiratory failure complication: hypoxia and hypercapnia COPD (chronic obstructive pulmonary disease) J44.9 CHF (congestive heart failure) I50.33 Heart failure chronicity: acute on chronic Heart failure type: diastolic ALONZO (obstructive sleep apnea) G47.33 Leukocytosis D72.829 Normocytic hypochromic anemia D50.9 CKD (chronic kidney disease) stage 2, GFR 60-89 ml/min N18.2 Hypothyroidism E03.9 Hypothyroidism type: unspecified Rectovaginal fistula N82.3 Anxiety and depression F41.9; F32.9 Restless leg syndrome G25.81 Morbid obesity E66.01 Pemphigus vulgaris L10.0 Candidal intertrigo B37.2 Alkalosis, metabolic E87.3
[2019-07-25 11:50] LABS: Glucose Point of Care 181 mg/dL (70-110)
--- NOTE | 2019-07-25 12:14 | PC.NURSE ---
[facility] called in regards to Vidhi Anthony grandson [employer]. [place] asking for info for there records. permission was given by Daughter Rafaela to answers questions.
--- NOTE | 2019-07-25 13:23 | PC.SOCIAL ---
Hiral from [facility] pharmacy called and indicates need to look at Alendronate. Needs to be either 70mg once weekly or 10mg once daily. Called Dr Franklin he indicates order should be 70mg once weekly and for 6 weeks. Rafaela indicates come in boxes of 4. Order given for one box and to clarify through PCP for refills.
[2019-07-25] MEDS: hyDROXYzine 25 mg Capsule PO (14:34)
[2019-09-21 16:02] LABS: Miscellaneous Test See Scanned Lab Rpt
== END 2019-07-25 15:17 | disposition home health service (06) | DRG 291 ==
LOC: ER 17:03 → MEDSURG 17:11
PROVIDERS: Admitting Provider Family Medicine; Emergency Provider Family Medicine; Family Provider Electrodiagnostic Medicine; PCP Electrodiagnostic Medicine; Visit Provider Student in an Organized Health Care Education/Training Program
DX: I13.0 Hypertensive heart and chronic kidney disease with heart failure and stage 1 through stage 4 chronic kidney disease, or unspecified chronic kidney disease (principal); I50.33 Acute on chronic diastolic (congestive) heart failure; J96.21 Acute and chronic respiratory failure with hypoxia; J96.22 Acute and chronic respiratory failure with hypercapnia; N82.3 Fistula of vagina to large intestine; L10.0 Pemphigus vulgaris; Z68.42 Body mass index [BMI] 45.0-49.9, adult; K61.1 Rectal abscess; E87.3 Alkalosis; N18.2 Chronic kidney disease, stage 2 (mild); J44.9 Chronic obstructive pulmonary disease, unspecified; Z99.81 Dependence on supplemental oxygen; E03.9 Hypothyroidism, unspecified; F41.8 Other specified anxiety disorders; E66.01 Morbid (severe) obesity due to excess calories; D64.9 Anemia, unspecified; G47.33 Obstructive sleep apnea (adult) (pediatric); G25.81 Restless legs syndrome; Z87.891 Personal history of nicotine dependence; B37.2 Candidiasis of skin and nail; G89.29 Other chronic pain; M19.90 Unspecified osteoarthritis, unspecified site; Z66 Do not resuscitate; E87.6 Hypokalemia; K59.00 Constipation, unspecified; E83.52 Hypercalcemia
CPT/HCPCS: 12345; 36415; 36416; 36600; 51702; 71045; 71275; 80048; 80051; 80053; 80500; 81210; 82306; 82310; 82652; 82803; 82810; 82962; 83540; 83550; 83605; 83735; 83880; 83970; 83986; 84145; 84439; 84443; 84481; 84484; 85007; 85014; 85018; 85025; 88184; 88185; 88381; 93005; 94640; 94660; 94762; 96372; 96375; 97116; 97162; 97530; 99282; J1650; J1815; J1940; J2405; J2920; J3490; J7512; J7626; Q9967

== ENCOUNTER 2019-07-26 09:27 | Inpatient (IN) | payer MEDICARE, SELFPAY ==
[2019-07-26] VITALS (23 sets, daily range): BP systolic 73–125; BP diastolic 35–63; PULSE 0–110; RESP 0–30; TEMP 37.2–38.6; O2SAT 60–98; BMI 45.7
[2019-07-26] MEDS: succinylcholine 20 mg/mL SDV 10mL 200 MG IV (09:30)
--- NOTE | 2019-07-26 09:43 | XR_ITS ---
WS: [id number] XR chest 1V portable [id number] REASON FOR EXAM: post intubation FINDINGS: Since earlier exam of endotracheal tube is been inserted the tip of the tube is I 0.47 cm a christina the breana. The right hemidiaphragm is markedly elevated. The lung louie are relatively clear similar to previous exam. XR/XR chest 1V portable [id number] IMPRESSION: Tracheal tube just above the breana.
--- NOTE | 2019-07-26 09:44 | ECG_ITS ---
Measurements Intervals [place] Rate: 92 P: 70 VA: 151 QRS: 48 QRSD: 94 T: 50 QT: 344 QTc: [address] DEPRESSION, CONSIDER NORMAL VARIANT [0.1+ mV JUNCTIONAL DEPRESSION] Compared to ECG 07/24/2019 17:24:26 ST (T wave) deviation now present Electronically Signed On 07-26-2019 17:13:53 CDT by Benita Davis M.D. [email or web address]
--- NOTE | 2019-07-26 09:46 | W.ED.SOB ---
HPI - SOB/Dyspnea General: Chief Complaint: Shortness of Breath/Dyspnea Stated Complaint: RESP DISTRESS Time Seen by Provider: 07/26/19 09:43 History of Present Illness: HPI Narrative: Patient was dismissed from the hospital yesterday. It was the understanding of the dismissed physician that this patient has hairy cell leukemia and was being discharged home for comfort measures. Patient began experiencing increasing shortness of breath through the night and ecotherapist so family called EMS and patient was brought to the emergency department. Patient is obtunded and not able to give any history. She appears to be in significant respiratory distress. MD elicited complaint: shortness of breath and cough Pertinent past history: COPD and congestive heart failure Context: recent illness Timing: constant and progressively worsening Severity: severe Relieving factors: nothing Review of Systems General: Reports: ROS unobtainable due to medical condition PFSH ED PFSH: Medical History Acute on chronic respiratory failure Anxiety and depression CHF (congestive heart failure) chronic diastolic, EF 75% and PASP 36 on last echo from September 2018. CKD (chronic kidney disease) stage 2, GFR 60-89 ml/min COPD (chronic obstructive pulmonary disease) Trilogy dependent (Ellipta) H/O drainage of abscess Dr. Yip in 12/2019 is 134 on 03/30/2019: Dr. Mistry right perirectal Hypertension Hypothyroidism Morbid obesity Normocytic hypochromic anemia ALONZO (obstructive sleep apnea) Pemphigus vulgaris Perirectal abscess Rectovaginal fistula Restless leg syndrome Surgical History H/O hysterectomy with oophorectomy H/O wrist surgery ORIF History of bladder surgery bladder lift Family History Unknown Cancer siblings with colon cancer, lung cancer, and melanoma Father CAD (coronary artery disease) Mother Diabetes Denies family history of Anesthesia complication Bleeding disorder Social History Smoking and tobacco status: former smoker Quit status (tobacco): has quit using tobacco Year quit tobacco: 50 yrs ago Alcohol intake: never Caregiver/support person: Yes (daughter Rafaela) Household members: children Current occupational status: retired History of recent travel: No Physical Exam HENMT: COMMON NORMALS: normocephalic and external nose normal HEAD & SCALP: normocephalic NOSE: external nose normal MOUTH: moist mucous membranes abnormal Neck/C-Spine: COMMON NORMALS: no lymphadenopathy GENERAL: Yes JVD Resp: EFFORT & INSPECTION: Yes respiratory distress, Yes decreased respiratory effort, Yes labored, Yes paradoxical thoraco-abdominal movements and Yes audible wheezes AUSCULTATION: wheezes and diminished lung sounds Cardio: RATE: tachycardic Extremity: GENERAL: Yes edema Neuro: SENSORIUM/ORIENTATION: Yes obtunded Skin: COMMON NORMALS: no wounds, no jaundice, no petechiae and no mottling Procedures Intubation Time out performed: No sedative: Etomidate paralytic: Succinylcholine Laryngoscope: Roberta ET Tube Size: 8 ET Tube Uncuffed: Yes Tube Placement Confirmation: visualized tube passing through cords, equal breath sounds bilaterally and confirmation by capnometry Patient Tolerated Procedure: no complications Intubation Complications: none Course Vital Signs: Vital signs: Vital Signs Temperature 98.9 F 07/26/19 13:20 Pulse Rate 71 07/26/19 14:45 Respiratory Rate 14 07/26/19 14:45 Blood Pressure 96/41 07/26/19 14:45 Pulse Oximetry 93 07/26/19 14:45 MDM - SOB/Dyspnea Lab Data: Labs: Lab Results 07/26/19 Range/Units 09:47 Urine Color Yellow (Yellow) Urine Appearance Clear (CLEAR) Urine pH 5.0 (5-7) Ur Specific Gravit y 1.015 (1.005-1.030) Urine Protein Neg (Negative) Urine Glucose (UA) Norm (Normal) Urine Ketones Negative (Negative) Urine Blood Neg (Negative) Urine Nitrate Negative (Negative) Urine Bilirubin Neg (NEGATIVE) Urine Urobilinogen Norm (Negative) mg/dL Ur Leukocyte Wendy ase Negative (Negative) Discharge Plan Discharge Patient Disposition: Admitted As Inpatient Admit Provider: Farida Alcala Clinical Impression: Acute respiratory distress Acute and chronic respiratory failure Qualifiers: Respiratory failure complication: hypoxia and hypercapnia Qualified Code(s): J96.21 - Acute and chronic respiratory failure with hypoxia Condition: Serious Referrals: Jerardo Parks, DO [Primary Care Provider] - Coding Level of Care Code ED Dr[employer]acher for g Fwd Exam Detailed
[2019-07-26] MEDS: sodium chloride 0.9% 500 ML 999 ML IV (10:02)
[2019-07-26] MEDS: midazolam 1 mg/mL INJ 2 mL 4 MG (10:17)
--- NOTE | 2019-07-26 10:28 | PM.HP ---
Providers/Chief Complaint Admitting Physician: Farida Alcala Primary Care Provider: Jerardo Parks DO Chief Complaint: RESP DISTRESS History of Present Illness Aurelia Cruz is a 78 year old female who was just discharged yesetreday from the hospital. 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 She was last admitted at our facility in 12/2018. She did have a right perirectal abscess incised and drained in March by Dr. 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 Unfortunately patient also has a history of pemphigus and intermittently has worsening lesions with blistering, she follows up with a specialist at [facility]. She is also noted to have an elevated white blood cell count with a previous history of being worked up for myeloma. I received a call from the pathologist Dr. 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 On the last admission, Patient was admitted to the floor for treatment of acute on chronic hypoxic and hypercapnic respiratory failure due to CHF and COPD exacerbation. She was treated with IV diuretics, steroids and nebulization. At start for first 48 hours patient was BiPAP dependent but had a very gradual slow improvement and is back to her baseline which is being on 4 to 5 L of nasal cannula while awake and trilogy machine while sleeping. Patient worked well with physical therapy and was able to ambulate from bed to chair on her own but was very lethargic. 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 Given the multiple comorbidities including severe COPD, severe obstructive sleep apnea and congestive heart failure requiring multiple admissions with history of rectovaginal fistula which has been deemed inoperable and new possible leukemia goals of care discussion were done with the patient and her son Mr. Erazo. Patient stated she is very tired of fighting it all and would now want to be DNR/DNI and the CODE STATUS was changed accordingly. Hospice care was also discussed with son. Son stated that he had discussion with hospice before but was unhappy with the services because they were limiting his decision making regarding patient's follow-up with primary care providers. For hypercalcemia patient was started on alendronate which he supposed to take once weekly and follow-up as an outpatient for repeat calcium levels. Patient's hospital stay details along with new diagnosis of possible leukemia and severe hypercalcemia were conveyed and discussed with patient's primary care provider Dr. Parks. He agreed to follow-up with patient early this week for possible transition to hospice. Given multiple comorbidities patient is high risk of repeated admission along with has a severely guarded prognosis. Given the new baseline all the details were discussed with son and he verbalized understanding of the same. He stated he would want Ms. Moses to come home at least once. Since discharge yesterday, patient has continued to decline. This morning she was noted to be hypoxic in spite of using her trilogy and oxygen. Home O2 sats were about 78% and she was noted to be in respiratory distress. EMS was called by the family and she was brought into the ED. Upon arrival here patient was having altered mental status and extreme respiratory distress following which she was intubated in the ER. I placed a call to Mr. Erazo again to discuss her CODE STATUS which was previously listed as DNR/DNI with goals of care being essentially comfort. The family does wish to proceed with extubation, understanding that this is likely to be a terminal event for the patient however they are gathering the family together at this time and would want her to remain on the ventilator until the family can get here. No current labs are available. These are awaited. Chest x-ray was performed and shows ET tube to be in position. Chest x-ray does not show any new infiltrates. Review of Systems General: Reports: ROS unobtainable due to endotracheal tube Medications/Allergies Home Medications Medication Instructions Recorded Confirmed Last Taken Type albuterol sulfate 90 mcg/actuation 2 puff INHALATION Q6H PRN 03/29/19 07/26/19 03/29/19 18:00 History aerosol inhaler levothyroxine 175 mcg capsule 175 mcg PO DAILY 03/29/19 07/26/19 03/30/19 07:00 History sertraline 50 mg tablet 75 mg PO DAILY tab 03/29/19 07/26/19 03/30/19 07:00 History triamcinolone acetonide 0.1 % 1 applic TOPICAL BID PRN 03/29/19 07/26/19 2 Days Ago History topical cream ~03/28/19 alprazolam 0.5 mg PO TID PRN 03/30/19 07/26/19 03/30/19 07:00 History potassium chloride 40 meq PO DAILY 03/30/19 07/26/19 03/30/19 07:00 History lactulose 10 gram/15 mL (15 mL) 10 gm PO BID 30 Days #1440 ml 05/17/19 07/26/19 Unknown Rx oral solution [place] 1 tab PO BID 07/15/19 07/26/19 Unknown History acitretin 25 mg PO DAILY 07/15/19 07/26/19 Unknown History cyanocobalamin (vitamin B-12) See Rx Instructions .ROUTE .COMPLEX 07/15/19 07/26/19 Unknown History ferrous sulfate [iron] 325 mg PO BID 07/15/19 07/26/19 Unknown History fluticasone propionate [Flonase 1 spray INTRANASAL DAILY 07/15/19 07/26/19 Unknown History Allergy Relief] hydrocodone-acetaminophen [[place]] 1 tab PO Q8H PRN 07/15/19 07/26/19 Unknown History methenamine hippurate 1 g PO BID 07/15/19 07/26/19 Unknown History ropinirole 2 - 4 mg PO BEDTIME 07/15/19 07/26/19 Unknown History alendronate 70 mg PO .Weekly 42 Days #6 tab 07/25/19 07/26/19 Unknown Rx clotrimazole-betamethasone 1 applic TOPICAL TID #50 g 07/25/19 07/26/19 Unknown Rx diltiazem HCl [Cardizem CD] 120 mg PO DAILY #30 cap 07/25/19 07/26/19 Unknown Rx fluticasone propion-salmeterol 1 inh INHALATION Q12H #60 each 07/25/19 07/26/19 Unknown Rx [Advair Diskus] furosemide 80 mg PO DAILY #30 tab 07/25/19 07/26/19 Unknown Rx prednisone See Rx Instructions .ROUTE 07/25/19 07/26/19 Unknown Rx .COMPLEX #55 tab tiotropium bromide [Spiriva with 1 cap INHALATION DAILY #90 inh 07/25/19 07/26/19 Unknown Rx HandiHaler] bumetanide See Rx Instructions .ROUTE .COMPLEX 07/26/19 07/26/19 Unknown History magnesium 250 mg PO DAILY 07/26/19 07/26/19 Unknown History melatonin 3 mg PO BEDTIME 07/26/19 07/26/19 Unknown History senna 17.2 mg PO DAILY PRN 07/26/19 07/26/19 Unknown History Allergies Allergy/AdvReac Type Severity Reaction Status Date / Time levofloxacin [From Levaquin] Allergy Severe ALGY-Swell Verified 05/17/19 15:07 Lip/Tongue/Throat Penicillins Allergy Severe ALGY-Swell Verified 05/17/19 15:07 Lip/Tongue/Throat Sulfa (Sulfonamide Allergy Severe ALGY-Swell Verified 05/17/19 15:07 Antibiotics) Lip/Tongue/Throat PFSH Acute PFSH: Medical History Acute on chronic respiratory failure Anxiety and depression CHF (congestive heart failure) chronic diastolic, EF 75% and PASP 36 on last echo from September 2018. CKD (chronic kidney disease) stage 2, GFR 60-89 ml/min COPD (chronic obstructive pulmonary disease) Trilogy dependent (Ellipta) H/O drainage of abscess Dr. Yip in 12/2019 is 134 on 03/30/2019: Dr. Mistry right perirectal Hypertension Hypothyroidism Morbid obesity Normocytic hypochromic anemia ALONZO (obstructive sleep apnea) Pemphigus vulgaris Perirectal abscess Rectovaginal fistula Restless leg syndrome Surgical History H/O hysterectomy with oophorectomy H/O wrist surgery ORIF History of bladder surgery bladder lift Family History Unknown Cancer siblings with colon cancer, lung cancer, and melanoma Father CAD (coronary artery disease) Mother Diabetes Denies family history of Anesthesia complication Bleeding disorder Social History Smoking and tobacco status: former smoker Quit status (tobacco): has quit using tobacco Year quit tobacco: 50 yrs ago Alcohol intake: never Caregiver/support person: Yes (daughter Rafaela) Household members: children Current occupational status: retired History of recent travel: No Vitals/I&O/Wt Last Vital Signs Temp 101.5 F H 07/26/19 09:29 Pulse 110 H 07/26/19 09:29 Resp 16 07/26/19 10:15 BP 125/63 07/26/19 09:29 Pulse Ox 97 07/26/19 09:30 Weight last 48 hrs Weight 113.398 kg Physical Exam Narrative: EXAM NARRATIVE: GEN: intubated, sedated on propofol CVS: S1S2 N RS: B/L coarse crackles at lung bases Abd: Soft, nt/nd , bs+ BARGE MASTER: unable to assess EXT: no gross rashes or swelling A&P Assessment and plan (1) Leukemia: Status: Acute (2) COPD (chronic obstructive pulmonary disease): Status: Acute (3) Acute on chronic respiratory failure: Status: Acute Qualifiers: Respiratory failure complication: hypoxia and hypercapnia Qualified Code(s): J96.21 - Acute and chronic respiratory failure with hypoxia; J96.22 - Acute and chronic respiratory failure with hypercapnia (4) CHF (congestive heart failure): Status: Acute Qualifiers: Heart failure type: diastolic Heart failure chronicity: acute on chronic Qualified Code(s): I50.33 - Acute on chronic diastolic (congestive) heart failure (5) Pemphigus vulgaris: Status: Chronic (6) ALONZO (obstructive sleep apnea): Status: Chronic (7) CKD (chronic kidney disease) stage 2, GFR 60-89 ml/min: Status: Chronic (8) Hypothyroidism: Status: Chronic Qualifiers: Hypothyroidism type: unspecified Qualified Code(s): E03.9 - Hypothyroidism, unspecified (9) Morbid obesity: Status: Chronic (10) Rectovaginal fistula: Status: Chronic Additional A&P Information Patient admitted to ICU. As mentioned above in HPI, patient has not had a disease as outlined above and was just discharged yesterday with details as noted above. She returns today with increasing oxygen requirement. At home she was noted to be 78% on 5 L/min nasal cannula and was increasingly tachypneic. On arrival at the ER she was noted to be in extreme respiratory distress. I do not have her O2 sats or respiratory rate available to me at this time. However she was intubated upon arrival. After she was intubated I did reach out to the son Mr. Erazo and gave him the update that I received from the pathologist regarding her pathology results concerning for a blood cell dyscrasia with blast cells. He notified me the patient was previously also being worked up for a malignancy, however they had elected not to pursue anything further in this regard. Patient was just discharged yesterday with a CODE STATUS of DNR/DNI with overall goals being that of comfort. Patient had declined hospice as they did not want her care to be dictated by anyone other than the family. I called Mr. Erazo with the updates from this morning and he stated that they would want the patient to be comfort care. However they would want to gather the rest of the family together and say their goodbyes. He requested that I keep the patient intubated until the family can get here. Once they have all seen her, we will proceed with extubation, with the understanding that this may be a terminal event for the patient. Call me back with more details after talking to rest of the family. In the interim patient is a DNR. Further details of his clinical picture and discussion with family emerges. Attestations Medical Necessity Statement*: Acute respiratory failure, anticipate > 2 midnight admission Coding Level of Care Code Acute Fishing Rod Trimmer for [facility] Diagnoses Leukemia C95.90 COPD (chronic obstructive pulmonary disease) J44.9 Acute on chronic respiratory failure J96.21; J96.22 Respiratory failure complication: hypoxia and hypercapnia CHF (congestive heart failure) I50.33 Heart failure type: diastolic Heart failure chronicity: acute on chronic Pemphigus vulgaris L10.0 ALONZO (obstructive sleep apnea) G47.33 CKD (chronic kidney disease) stage 2, GFR 60-89 ml/min N18.2 Hypothyroidism E03.9 Hypothyroidism type: unspecified Morbid obesity E66.01 Rectovaginal fistula N82.3
[2019-07-26] MEDS: propofol 1,000 MG/100 ML INJ 3.4 MG IV (10:51)
[2019-07-26] MEDS: LORazepam 2 mg/mL INJ 1 mL IVP ×3 (10:52→12:11)
[2019-07-26 10:56] LABS: ABG PCO2 52.9 mmHg (35-45); ABG PH Result 7.53 (7.35-7.45); Alveolar-Arterial Oxygen Gradi 443.9 mmHg (5-10); Arterial Blood Gas Hematocrit 26.2 % (37-47); Base Excess ABG 18.8 mmol/L (-2.0-2.0); Blood Gas Allen Test Pos; Blood Gas Sample Site Radial, left; Blood Gas Sample Type Arterial; Blood Gas Tidal Volume 0.4; Carboxyhemoglobin 0.9 %THgb (0.4-20.1); HCO3 ABG 43.7 mmol/L (22-26); HGB O2 Sat 97.7 % (95-100); Methemoglobin 1.3 % (0.4-1.5); Oxygen Device VENT; Oxygen Saturation ABG 99.8; Total Hemoglobin 8.6 g/dL (12-16)
[2019-07-26 10:57] LABS: Ionized Calcium Level - ABG 1.8 mmol/L (1.1-1.4)
[2019-07-26 11:01] LABS: Hemoglobin 8.2 g/dL (11.5-15.3); Mean Corpuscular HGB Conc 29.3 g/dL (30.0-36.0); Mean Corpuscular Hemoglobin 25.2 pg (28.0-34.0); Mean Corpuscular Volume 85.9 fL (81-99); Mean Platelet Volume 10.7 fL (7.4-10.4); Nucleated Red Blood Cells # 1.5 /100WBC; Nucleated Red Blood Cells % 4.5 %; Platelet Count 108 10^3/cmm (130-400); Red Blood Count 3.26 10^6/uL (4.1-5.3); Red Cell Distribution Width 18.5 % (12.1-15.1)
[2019-07-26 11:15] LABS: Add Urine Microscopic? NO
[2019-07-26 11:20] LABS: Slide Review Slide Review Perform
[2019-07-26 11:23] LABS: White Blood Count 32.8 10^3/uL (4.0-10.0)
[2019-07-26 11:26] LABS: Troponin(5th) Baseline 89 ng/mL (0-10)
[2019-07-26 11:35] LABS: Absolute Segmented Neutrophil 7.2 10/cmm (1.6-7.1); Alanine Aminotransferase 18 U/L (0-33); Albumin Level 3.1 g/dL (3.5-5.2); Alkaline Phosphatase 90 IU/L (35-105); Anion Gap 13.1 (5-19); Aspartate Amino Transferase 32 U/L (0-32); Band Neutrophils Absolute 5.2 10^3/cmm (0.0-1.2); Blood Urea Nitrogen 38 mg/dL (8-23); Carbon Dioxide 39 mmol/L (22-29); Chloride 94 mmol/L (98-107); Corrected White Blood Count 31.2 10^3/cmm (4.8-10.8); Globulin 3.4 g/dL (1.3-4.6); Glucose 130 mg/dL (65-115); Lipase 12 U/L (13-60); Lymphocytes 39 %; Monocytes Absolute 0.3 10^3/cmm (0.1-0.6); NT Pro B Type Natriuretic Pept 7782 pg/mL (0-450); Osmolality Calculated 295 mOsm/kg (285-295); Platelet Estimate Decreased (Normal); Potassium 3.1 mmol/L (3.5-5.1); Segmented Neutrophils 22 %; Sodium 143 mmol/L (136-145); Total Bilirubin 0.6 mg/dL (0.15-1.2); Total Cells Counted 100 (0-100); Total Protein 6.5 g/dL (6.6-8.7)
[2019-07-26 11:36] LABS: Poikilocytosis 1+; Stomatocytes 1+
[2019-07-26 11:37] LABS: Bilirubin Urine Neg (NEGATIVE); Blood Urine Neg (Negative); Glucose Urine UA Norm (Normal); Ketones Urine Negative (Negative); Leukocyte Esterase Urine Negative (Negative); Nitrate Urine Negative (Negative); Protein Urine Neg (Negative); Specific Gravity, Urine 1.015 (1.005-1.030); Urine Appearance Clear (CLEAR); Urine Color Yellow (Yellow); Urobilinogen Urine Norm (Negative)
[2019-07-26 11:39] LABS: Calcium 13.7 mg/dL (8.5-10.5)
--- NOTE | 2019-07-26 11:44 | ECG_ITS ---
Measurements Intervals [place] Rate: 79 P: 64 AR: 152 QRS: 36 QRSD: 98 T: 33 QT: 364 QTc: 420 SINUS RHYTHM Compared to ECG 07/24/2019 17:24:26 No significant changes Electronically Signed On 07-26-2019 17:21:10 CDT by Benita Davis M.D. [email or web address]
[2019-07-26] MEDS: sodium chloride 0.9% 1,000 ML 999 ML IV (12:11)
[2019-07-26 13:31] LABS: Troponin 5 2HR 108.2 ng/mL (0-10); Troponin 5 2HR Delta 19.2 ABS# (0-10)
--- NOTE | 2019-07-26 13:35 | PC.NURSE ---
per verbal order of ER physician administered 50mcg fentanyl bolus over 1minute from IV pump
[2019-07-26 18:49] LABS: Troponin 5 6HR 103.1 ng/mL (0-10); Troponin 5 6HR Delta 14.1 ng/L (0-12)
[2019-07-26] MEDS: bumetanide 1 mg Tablet NG-TUBE (19:12)
[2019-07-26] MEDS: LORazepam 2 mg/mL INJ 1 mL 4 MG IVP (21:19)
[2019-07-26] MEDS: morphine 4 mg/mL SDV 1 mL 2 MG IVP ×3 (21:20→22:30)
--- NOTE | 2019-07-26 23:00 | PC.NURSE ---
Dr Watts notified on [id number]. [facility] contacted - Coordinator Grant stated the pt is not candiate for [facility] donation due to pending Covid test and will not be contacting [facility]. Pt care nurse notified. Brenna Doss notified.
--- NOTE | 2019-07-26 23:15 | PC.NURSE ---
Patients children at bedside. Family verbalized wishes to proceed with terminal extubatiion. Propofol and fentanyl gtt stopped. Patient extubated at 2128. 2 mg Morphine and 4 mg Ativan given at time of extubation. Patient began to take agonal breaths. Spoke with Dr. Watts on phone. Dr. Watts requested to give morphine again. Time of called at [address] Watts. Ground Crewman, JOYCE Velazco. spole with [facility] and [facility]. Home notified. Patient prepared for transfer to home.
--- NOTE | 2019-07-27 20:03 | PC.NURSE ---
07/26/[id number] 60 ml wasted from Fentanyl gtt with JOYCE Rendon.
[2019-07-27 20:52] LABS: Coronavirus Lab Test PTC Negative
--- NOTE | 2019-07-28 07:07 | PM.DDS ---
Discharge Providers DDS Date of Admission: 07/26/19 10:25 Date Summary Completed: 07/28/19 Attending Provider at Admission: Farida Alcala MD Time of : 22:30 Attending Provider at Discharge: Farida Alcala MD Primary Care Provider: DO BRAYAN Do Diagnoses Hospital Diagnoses (1) Leukemia: (2) COPD (chronic obstructive pulmonary disease): Problem details: Trilogy dependent (Ellipta) (3) Acute on chronic respiratory failure: Qualifiers: Respiratory failure complication: hypoxia and hypercapnia Qualified Code(s): J96.21 - Acute and chronic respiratory failure with hypoxia; J96.22 - Acute and chronic respiratory failure with hypercapnia (4) CHF (congestive heart failure): Problem details: chronic diastolic, EF 75% and PASP 36 on last echo from September 2018. Qualifiers: Heart failure chronicity: acute on chronic Heart failure type: diastolic Qualified Code(s): I50.33 - Acute on chronic diastolic (congestive) heart failure (5) Pemphigus vulgaris: (6) ALONZO (obstructive sleep apnea): (7) CKD (chronic kidney disease) stage 2, GFR 60-89 ml/min: (8) Hypothyroidism: Qualifiers: Hypothyroidism type: unspecified Qualified Code(s): E03.9 - Hypothyroidism, unspecified (9) Morbid obesity: (10) Rectovaginal fistula: Reason for Visit Reason for Visit: Reason For Visit: RESP DISTRESS Summary Date and Time of : Date of : 07/26/19 Time of : 22:30 Summary: Summary: she has an extensive PMHx including 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 During that hospitalization patient's CODE STATUS was changed after discussion with family to DNI. As per the documentation there was also discussion of possible hospice placement to which family decided not to pursue at that time but wanted to speak with the primary care physician with whom she had an appointment on July 26. Patient presented to the hospital on July 25 in acute respiratory failure and was intubated in the ER. After discussion with the family regarding goals of care they decided to put her in comfort care but did not want terminal extubation to the family members were at bedside. Eventually patient was extubated in evening and was declared by nurses at 10:30 PM on July 25. Additional Data: Advance directives?: Yes Discharge Plan Discharge Patient Disposition: Condition: Serious Prescriptions: No Action triamcinolone acetonide 0.1 % cream 1 applic TOPICAL BID PRN (Reason: unknown) RF: 0 levothyroxine 175 mcg capsule 175 mcg PO DAILY RF: 0 albuterol sulfate [ProAir HFA] 90 mcg/actuation HFA aerosol inhaler 2 puff INHALATION Q6H PRN (Reason: Allergy Symptoms) RF: 0 sertraline [Zoloft] 50 mg tablet 75 mg PO DAILY RF: 0 lactulose 10 gram/15 mL (15 mL) solution 10 gm PO BID 30 Days Qty: 1440 RF: 2 methenamine hippurate 1 gram tablet 1 g PO BID RF: 0 acitretin 25 mg capsule 25 mg PO DAILY RF: 0 ropinirole 2 mg tablet 2 - 4 mg PO BEDTIME RF: 0 ferrous sulfate [iron] 325 mg (65 mg iron) Tablet 325 mg PO BID RF: 0 fluticasone propionate [Flonase Allergy Relief] 50 mcg/actuation [place],Suspension 1 spray INTRANASAL DAILY RF: 0 [place] 1 tab PO BID RF: 0 cyanocobalamin (vitamin B-12) See Rx Instructions .ROUTE .COMPLEX RF: 0 hydrocodone-acetaminophen [[place]] 5-325 mg tablet 1 tab PO Q8H PRN (Reason: pain) RF: 0 Spiriva with HandiHaler 18 mcg capsule, w/inhalation device 1 cap INHALATION DAILY Qty: 90 RF: 0 fluticasone propion-salmeterol [Advair Diskus] 500-50 mcg/dose blister with device 1 inh INHALATION Q12H Qty: 60 RF: 0 furosemide 40 mg Tablet 80 mg PO DAILY Qty: 30 RF: 0 clotrimazole-betamethasone 1-0.05 % Cream 1 applic topical TID Qty: 50 RF: 0 diltiazem HCl [Cardizem CD] 120 mg capsule,extended release 24hr 120 mg PO DAILY Qty: 30 RF: 0 prednisone 10 mg tablet See Rx Instructions .ROUTE .COMPLEX Qty: 55 RF: 0 alendronate 70 mg tablet 70 mg PO .Weekly 42 Days Qty: 6 RF: 0 alprazolam 0.5 mg tablet 0.5 mg PO TID PRN (Reason: Anxiety) RF: 0 potassium chloride 20 mEq tablet,ER particles/crystals 40 meq PO DAILY RF: 0 senna 8.6 mg Tablet 17.2 mg PO DAILY PRN (Reason: Constipation) RF: 0 melatonin 3 mg Tablet 3 mg PO BEDTIME RF: 0 bumetanide 1 mg Tablet See Rx Instructions .ROUTE .COMPLEX RF: 0 magnesium 250 mg Tablet 250 mg PO DAILY RF: 0 Referrals: Jerardo Parks DO [Primary Care Provider] - Discharge Date/Time: 07/26/19 22:30 DS Attestations Time Spent in /Discharge Care*: less than 30 min Quality - AMI: AMI present?: No Quality - Stroke: CVA present?: No Symptom Onset Unknown: No Quality - VTE: VTE present?: No Deep Vein Thrombosis/Pulmonary Embolism Present on Admission: No Coding Level of Care Code Acute It Compliance Manager for g Fwd Diagnoses Leukemia C95.90 COPD (chronic obstructive pulmonary disease) J44.9 Acute on chronic respiratory failure J96.21; J96.22 Respiratory failure complication: hypoxia and hypercapnia CHF (congestive heart failure) I50.33 Heart failure chronicity: acute on chronic Heart failure type: diastolic Pemphigus vulgaris L10.0 ALONZO (obstructive sleep apnea) G47.33 CKD (chronic kidney disease) stage 2, GFR 60-89 ml/min N18.2 Hypothyroidism E03.9 Hypothyroidism type: unspecified Morbid obesity E66.01 Rectovaginal fistula N82.3
== END 2019-07-26 22:30 | disposition expired | DRG 208 ==
LOC: ER 11:15 → ICU 13:45
PROVIDERS: Admitting Provider Student in an Organized Health Care Education/Training Program; Emergency Provider Family Medicine; Family Provider Electrodiagnostic Medicine; PCP Electrodiagnostic Medicine; Visit Provider Student in an Organized Health Care Education/Training Program
DX: J96.21 Acute and chronic respiratory failure with hypoxia (principal); I50.33 Acute on chronic diastolic (congestive) heart failure; C95.90 Leukemia, unspecified not having achieved remission; I13.0 Hypertensive heart and chronic kidney disease with heart failure and stage 1 through stage 4 chronic kidney disease, or unspecified chronic kidney disease; Z68.42 Body mass index [BMI] 45.0-49.9, adult; N82.3 Fistula of vagina to large intestine; L10.0 Pemphigus vulgaris; J96.22 Acute and chronic respiratory failure with hypercapnia; J44.9 Chronic obstructive pulmonary disease, unspecified; Z99.81 Dependence on supplemental oxygen; N18.2 Chronic kidney disease, stage 2 (mild); E03.9 Hypothyroidism, unspecified; Z66 Do not resuscitate; F41.8 Other specified anxiety disorders; E66.01 Morbid (severe) obesity due to excess calories; D63.1 Anemia in chronic kidney disease; G47.33 Obstructive sleep apnea (adult) (pediatric); G25.81 Restless legs syndrome; Z87.891 Personal history of nicotine dependence
CPT/HCPCS: 12345; 36415; 36600; 51702; 71045; 80051; 80053; 81003; 82810; 83605; 83690; 83880; 83986; 84484; 85007; 85025; 87070; 87205; 87635; 93005; 94002; 94799; 96375; 99284; J0330; J0692; J2060; J2250; J2270; J2704; J3010; J3490; J7030; J7040